=== PATIENT | female | born 1935 | race Caucasian/White ===

== ENCOUNTER 2020-01-14 14:30 | Outpatient (CLI) | payer MEDICARE, OTHER, SELFPAY ==
--- NOTE | 2020-01-14 14:48 | XR_ITS ---
WS: [id number] CHEST 2 VIEWS HISTORY: COUGH COMPARISON: 11/06/2017 Lungs: Mild progression of chronic appearing fibrotic changes. No pneumonia. No pulmonary vascular co ngestion. Cardiac size: Normal. Mediastinum/Aorta: Mild atherosclerosis aorta. Bones: Osteopenia. XR/XR chest 2V* [id number] IMPRESSION: Mild progression of pulmonary fibrosis. No pneumonia.
== END 2020-01-14 14:31 | disposition home or self-care (01) ==
LOC: RADWPI 14:38
PROVIDERS: Family Provider Family Medicine; PCP Family Medicine; Visit Provider Nurse Practitioner Family
DX: R05 Cough (principal); J84.10 Pulmonary fibrosis, unspecified
CPT/HCPCS: 71046

== ENCOUNTER 2020-11-10 20:06 | Inpatient (IN) | payer MEDICARE, OTHER, SELFPAY ==
[2020-11-10 20:12] VITALS: BP 155/67; PULSE 88; RESP 18; TEMP 37.2; O2SAT 97; BMI 25.7
--- NOTE | 2020-11-10 20:35 | W.ED.GENADLT ---
HPI - General Adult General: Chief complaint: General Medical Stated complaint: Dr Fernandez office sent her here Time Seen by Provider: 11/10/20 20:35 History of Present Illness: HPI narrative: Ms. Hooks is a previously healthy 85-year-old lady with minimal past medical history including hypertension and hyperlipidemia who presents to the emergency department due to abnormal lab. She did have COVID-19 approximately 18 days ago and had fairly typical associated symptoms however felt like she was recovering with exception of fairly profound fatigue. She has not had continued infectious symptoms in the past week or so. She describes generalized fatigue and loss of energy. She has symmetric generalized weakness. Overall the intensity of symptoms is moderate to severe. The course has persisted. She saw her physician today and had labs drawn which noted thrombocytopenia and anemia. She denies history of known similar. She denies abdominal pain or GI bleed. No dark tarry stools. No bruising. There are no known specific provoking, exacerbating, relieving factors. Review of Systems General: Reports: 10 or more systems reviewed and unremarkable except in HPI and below Narrative: CONSTITUTIONAL: denies fever, positive for fatigue, weakness EYES - denies pain, denies loss of vision EARS - denies ear issues. NOSE - denies congestion or rhinorrhea. THROAT - denies sore throat or difficulty swallowing. CARDIOVASCULAR - denies chest pain and palpitations RESPIRATORY - denies shortness of breath and cough GASTROINTESTINAL - denies abdominal pain, no nausea vomiting, no changes in bowel habits. No dark stools or melena GENITOURINARY - denies dysuria or urinary frequency. No hematuria. MUSCULOSKELETAL- denies deformity or pain SKIN - denies rashes or new changed skin lesions NEUROLOGIC - denies focal weakness or sensory changes HEMATOLOGIC/LYMPHATIC - denies easy bruising or lymphadenopathy. [facility] ED PFS: Medical History (Updated 11/12/20 @ 00:01 by ) COPD (chronic obstructive pulmonary disease) has not smoked since teenage years, < 2 packs years, 2nd hand exposure COVID-19 vaccine administered Moderna 3 para 3 Hyperlipidemia Hypertension Surgical History (Updated 11/11/20 @ 02:39 by Isa Armenta MD) H/O hemorrhoidectomy (~2014) Family History (Updated 11/11/20 @ 05:08 by Isa Armenta MD) Mother Heart attack Father Pulmonary fibrosis Sister Lung cancer Brother Lung cancer Son History of splenectomy Social History Smoking and tobacco status: former smoker Quit status (tobacco): has quit using tobacco Second hand smoke exposure: Yes Alcohol intake: never Substance/Drug Use: never Adopted: No Lives independently: No Household members: children Marital status: / Number of children: 4 Number of grandchildren: 7 Highest education level completed: High School Graduate service: No Current occupational status: retired Pets and animals: No History of recent travel: No Leisure activites: other Current gender identity: Female Quin/Anglican: Yazdanism Special quin needs: No Agree to transfusion: Yes Physical Exam Narrative: EXAM NARRATIVE: GENERAL/CONSTITUTIONAL - well-appearing. No acute distress. Eyes - PERRL, no conjunctival injection. Pallor present. ENMT - Atraumatic external nose and ears. Moist mucous membranes NECK - supple. trachea midline CARDIOVASCULAR - regular rate and rhythm. Peripheral pulses 2+ and equal RESPIRATORY -clear to auscultation bilaterally. No retractions or accessory muscle use. ABDOMEN/GI - Nontender/Nondistended. No tenderness to percussion or evidence of peritonitis MSK - Extremities without obvious deformity or tenderness to palpation SKIN - Warm, Dry, pale. NEURO - alert and appropriately oriented. strength and sensation intact. Moves all extremities equally. PSYCH - Appropriate mood and affect Course ED course: - Patient was seen and evaluated by me at bedside - Patient placed on cardiac monitors, IV access obtained - Initial evaluation notable for no acute distress, nontoxic appearance. Mild pallor of mucous membranes. - Labs notable for hemoglobin 6.1 -Guaiac negative. Waste Collection Driver present. -Risk and benefits of blood transfusion discussed with the patient. Patient consented for blood transfusion and transfusion ordered - Upon serial reexamination after treatment the patient was similar - Based on patient history, evaluation, labs, and imaging as interpreted the most likely cause of the patient's condition is unclear, though in the absence of known history this requires further evaluation. - The results of ED evaluation were discussed with the patient including plan for admission due to requirement for level of care not available if discharged to prevent significant worsening/deterioration. -Hospitalist service contacted and agreed to admit the patient. - Patient was admitted without further deterioration or significant events. Vital Signs: Vital signs: Vital Signs Temperature 98.4 F 11/11/20 13:20 Pulse Rate 76 11/11/20 13:20 Respiratory Rate 15 11/11/20 13:20 Blood Pressure 147/64 11/11/20 13:20 Pulse Oximetry 98 11/11/20 13:20 [facility] - General Adult Medical Records: Attestation: I reviewed the patient's medical records. Lab Data: Attestation: I reviewed the patient's lab results. Labs: Lab Results 11/10/20 11/10/20 11/10/20 Range/Units 20:45 20:45 20:45 WBC 4.0 (4.0-10.0) 10^3/ uL RBC 1.74 L (4.1-5.3) 10^6/u L Hgb 6.1 L* (11.5-15.3) g/dL Hct 19.5 L* (37.0-47.0) % MCV 112.1 H (81-99) fl MCH 35.1 H (28.0-34.0) pg MCHC 31.3 (30.0-36.0) g/dL RDW 17.3 H (12.1-15.1) % Plt Count 113 L (130-400) 10^3/c mm MPV 12.3 H (7.4-10.4) fL Neut % (Auto) 73.7 % Lymph % (Auto) 20.1 % Mathews % (Auto) 3.7 % Eos % (Auto) 1.0 % Baso % (Auto) 0.5 % Reticulocyte % (Au to) (0.5-2.0) % Neut # (Auto) 2.96 (1.8-7.7) 10^3/u L Lymph # (Auto) 0.8 (0.8-4.8) 10^3/u L Mathews # (Auto) 0.2 (0.2-0.9) 10^3/u L Eos # (Auto) 0.0 (0.0-0.8) 10^3/u L Baso # (Auto) 0.0 (0.0-0.1) 10^3/u L Nucleated RBC % (a uto) 0 % Nucleated RBCs # 0.0 /100WBC Haptoglobin (30-200) mg/L PT (12.1-14.9) SECO NDS INR (0.8-1.2) APTT (23.9-36.7) SECO NDS Fibrinogen (174-498) mg/dL D-Dimer (0-0.59) ug/mIFE U Sodium 135 L (136-145) mmol/L Potassium 3.9 (3.5-5.1) mmol/L Chloride 103 (98-107) mmol/L Carbon Dioxide 23 (22-29) mmol/L Anion Gap 12.9 (5-19) BUN 14 (8-23) mg/dL Creatinine 0.7 (0.5-0.9) mg/dL GFR Calculation Not Reportable Glucose 150 H (65-115) mg/dL Calculated Osmolal ity 283 L (285-295) mOsm/k g Calcium 8.5 (8.5-10.5) mg/dL Iron (37-145) ug/dL TIBC mcg/dl % Saturation (20-50) % Unsat Iron Binding (112-347) ug/dL Transferrin (200-360) mg/dL Ferritin (15-150) ng/mL Total Bilirubin 0.4 (0.15-1.2) mg/dL AST 15 (0-32) U/L ALT 10 (0-33) U/L Alkaline Phosphata se 113 H (35-105) IU/L Lactate Dehydrogen ase (135-214) U/L C-Reactive Protein (0.0-4.9) mg/L Total Protein 6.5 L (6.6-8.7) g/dL Albumin 3.7 (3.5-5.2) g/dL Globulin 2.8 (1.3-4.6) g/dL Vitamin B12 (232-1245) pg/mL Folate (4.8-37.3) ng/mL Procalcitonin (0-0.5) ng/mL TSH (0.27-4.20) uIU/ mL Blood Type A Positive Rho(D) Type Positive Antibody Screen Negative Crossmatch See Detail 11/10/20 11/10/20 11/10/20 Range/Units 20:45 20:45 20:45 WBC (4.0-10.0) 10^3/ uL RBC (4.1-5.3) 10^6/u L Hgb (11.5-15.3) g/dL Hct (37.0-47.0) % MCV (81-99) fl MCH (28.0-34.0) pg MCHC (30.0-36.0) g/dL RDW (12.1-15.1) % Plt Count (130-400) 10^3/c mm MPV (7.4-10.4) fL Neut % (Auto) % Lymph % (Auto) % Mathews % (Auto) % Eos % (Auto) % Baso % (Auto) % Reticulocyte % (Au to) 0.9 (0.5-2.0) % Neut # (Auto) (1.8-7.7) 10^3/u L Lymph # (Auto) (0.8-4.8) 10^3/u L Mathews # (Auto) (0.2-0.9) 10^3/u L Eos # (Auto) (0.0-0.8) 10^3/u L Baso # (Auto) (0.0-0.1) 10^3/u L Nucleated RBC % (a uto) % Nucleated RBCs # /100WBC Haptoglobin 127.0 (30-200) mg/L PT 12.50 (12.1-14.9) SECO NDS INR 0.91 (0.8-1.2) APTT 30.1 (23.9-36.7) SECO NDS Fibrinogen (174-498) mg/dL D-Dimer (0-0.59) ug/mIFE U Sodium (136-145) mmol/L Potassium (3.5-5.1) mmol/L Chloride (98-107) mmol/L Carbon Dioxide (22-29) mmol/L Anion Gap (5-19) BUN (8-23) mg/dL Creatinine (0.5-0.9) mg/dL GFR Calculation Glucose (65-115) mg/dL Calculated Osmolal ity (285-295) mOsm/k g Calcium (8.5-10.5) mg/dL Iron (37-145) ug/dL TIBC mcg/dl % Saturation (20-50) % Unsat Iron Binding (112-347) ug/dL Transferrin (200-360) mg/dL Ferritin (15-150) ng/mL Total Bilirubin (0.15-1.2) mg/dL AST (0-32) U/L ALT (0-33) U/L Alkaline Phosphata se (35-105) IU/L Lactate Dehydrogen ase 238 H (135-214) U/L C-Reactive Protein (0.0-4.9) mg/L Total Protein (6.6-8.7) g/dL Albumin (3.5-5.2) g/dL Globulin (1.3-4.6) g/dL Vitamin B12 (232-1245) pg/mL Folate (4.8-37.3) ng/mL Procalcitonin (0-0.5) ng/mL TSH (0.27-4.20) uIU/ mL Blood Type Rho(D) Type Antibody Screen Crossmatch 11/10/20 11/10/20 11/10/20 Range/Units 20:45 20:45 20:45 WBC (4.0-10.0) 10^3/ uL RBC (4.1-5.3) 10^6/u L Hgb (11.5-15.3) g/dL Hct (37.0-47.0) % MCV (81-99) fl MCH (28.0-34.0) pg MCHC (30.0-36.0) g/dL RDW (12.1-15.1) % Plt Count (130-400) 10^3/c mm MPV (7.4-10.4) fL Neut % (Auto) % Lymph % (Auto) % Mathews % (Auto) % Eos % (Auto) % Baso % (Auto) % Reticulocyte % (Au to) (0.5-2.0) % Neut # (Auto) (1.8-7.7) 10^3/u L Lymph # (Auto) (0.8-4.8) 10^3/u L Mathews # (Auto) (0.2-0.9) 10^3/u L Eos # (Auto) (0.0-0.8) 10^3/u L Baso # (Auto) (0.0-0.1) 10^3/u L Nucleated RBC % (a uto) % Nucleated RBCs # /100WBC Haptoglobin (30-200) mg/L PT (12.1-14.9) SECO NDS INR (0.8-1.2) APTT (23.9-36.7) SECO NDS Fibrinogen 415 (174-498) mg/dL D-Dimer 0.95 H (0-0.59) ug/mIFE U Sodium (136-145) mmol/L Potassium (3.5-5.1) mmol/L Chloride (98-107) mmol/L Carbon Dioxide (22-29) mmol/L Anion Gap (5-19) BUN (8-23) mg/dL Creatinine (0.5-0.9) mg/dL GFR Calculation Glucose (65-115) mg/dL Calculated Osmolal ity (285-295) mOsm/k g Calcium (8.5-10.5) mg/dL Iron 97 (37-145) ug/dL TIBC 177 mcg/dl % Saturation 54.8 H (20-50) % Unsat Iron Binding 80 L (112-347) ug/dL Transferrin 148 L (200-360) mg/dL Ferritin 431 H (15-150) ng/mL Total Bilirubin (0.15-1.2) mg/dL AST (0-32) U/L ALT (0-33) U/L Alkaline Phosphata se (35-105) IU/L Lactate Dehydrogen ase (135-214) U/L C-Reactive Protein (0.0-4.9) mg/L Total Protein (6.6-8.7) g/dL Albumin (3.5-5.2) g/dL Globulin (1.3-4.6) g/dL Vitamin B12 237 (232-1245) pg/mL Folate 10.7 (4.8-37.3) ng/mL Procalcitonin (0-0.5) ng/mL TSH (0.27-4.20) uIU/ mL Blood Type Rho(D) Type Antibody Screen Crossmatch 11/10/20 11/10/20 Range/Units 20:45 20:45 WBC (4.0-10.0) 10^3/ uL RBC (4.1-5.3) 10^6/u L Hgb (11.5-15.3) g/dL Hct (37.0-47.0) % MCV (81-99) fl MCH (28.0-34.0) pg MCHC (30.0-36.0) g/dL RDW (12.1-15.1) % Plt Count (130-400) 10^3/c mm MPV (7.4-10.4) fL Neut % (Auto) % Lymph % (Auto) % Mathews % (Auto) % Eos % (Auto) % Baso % (Auto) % Reticulocyte % (Au to) (0.5-2.0) % Neut # (Auto) (1.8-7.7) 10^3/u L Lymph # (Auto) (0.8-4.8) 10^3/u L Mathews # (Auto) (0.2-0.9) 10^3/u L Eos # (Auto) (0.0-0.8) 10^3/u L Baso # (Auto) (0.0-0.1) 10^3/u L Nucleated RBC % (a uto) % Nucleated RBCs # /100WBC Haptoglobin (30-200) mg/L PT (12.1-14.9) SECO NDS INR (0.8-1.2) APTT (23.9-36.7) SECO NDS Fibrinogen (174-498) mg/dL D-Dimer (0-0.59) ug/mIFE U Sodium (136-145) mmol/L Potassium (3.5-5.1) mmol/L Chloride (98-107) mmol/L Carbon Dioxide (22-29) mmol/L Anion Gap (5-19) BUN (8-23) mg/dL Creatinine (0.5-0.9) mg/dL GFR Calculation Glucose (65-115) mg/dL Calculated Osmolal ity (285-295) mOsm/k g Calcium (8.5-10.5) mg/dL Iron (37-145) ug/dL TIBC mcg/dl % Saturation (20-50) % Unsat Iron Binding (112-347) ug/dL Transferrin (200-360) mg/dL Ferritin (15-150) ng/mL Total Bilirubin (0.15-1.2) mg/dL AST (0-32) U/L ALT (0-33) U/L Alkaline Phosphata se (35-105) IU/L Lactate Dehydrogen ase (135-214) U/L C-Reactive Protein 4.6 (0.0-4.9) mg/L Total Protein (6.6-8.7) g/dL Albumin (3.5-5.2) g/dL Globulin (1.3-4.6) g/dL Vitamin B12 (232-1245) pg/mL Folate (4.8-37.3) ng/mL Procalcitonin 0.04 (0-0.5) ng/mL TSH 2.23 (0.27-4.20) uIU/ mL Blood Type Rho(D) Type Antibody Screen Crossmatch Discharge Plan Discharge Patient Disposition: Admitted As Inpatient Admit Provider: Isa Armenta Condition: Stable Discharge Diet: Usual diet Discharge Activity: Increase activity as tolerated Coding Level of Care Code ED 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
[2020-11-10 21:03] LABS: Basophils % 0.5 %; Lymphocytes # 0.8 10^3/uL (0.8-4.8); Lymphocytes % 20.1 %; Mean Corpuscular HGB Conc 31.3 g/dL (30.0-36.0); Mean Corpuscular Hemoglobin 35.1 pg (28.0-34.0); Mean Corpuscular Volume 112.1 fl (81-99); Mean Platelet Volume 12.3 fL (7.4-10.4); Monocytes # 0.2 10^3/uL (0.2-0.9); Monocytes % 3.7 %; Neutrophils # 2.96 10^3/uL (1.8-7.7); Neutrophils % 73.7 %; Nucleated Red Blood Cells % 0 %; Platelet Count 113 10^3/cmm (130-400); Red Blood Count 1.74 10^6/uL (4.1-5.3); Red Cell Distribution Width 17.3 % (12.1-15.1)
[2020-11-10 21:11] LABS: Hematocrit 19.5 % (37.0-47.0); Hemoglobin 6.1 g/dL (11.5-15.3)
[2020-11-10 21:17] VITALS: BP 138/63; PULSE 77; RESP 16; O2SAT 97
[2020-11-10 21:27] LABS: Alanine Aminotransferase 10 U/L (0-33); Albumin Level 3.7 g/dL (3.5-5.2); Alkaline Phosphatase 113 IU/L (35-105); Anion Gap 12.9 (5-19); Aspartate Amino Transferase 15 U/L (0-32); Blood Urea Nitrogen 14 mg/dL (8-23); Calcium 8.5 mg/dL (8.5-10.5); Carbon Dioxide 23 mmol/L (22-29); Chloride 103 mmol/L (98-107); Creatinine Clr Calc Pharmacy 50.4987; Globulin 2.8 g/dL (1.3-4.6); Glucose 150 mg/dL (65-115); Osmolality Calculated 283 mOsm/kg (285-295); Potassium 3.9 mmol/L (3.5-5.1); Sodium 135 mmol/L (136-145); Total Bilirubin 0.4 mg/dL (0.15-1.2); Total Protein 6.5 g/dL (6.6-8.7)
[2020-11-10 21:46] LABS: Reticulocyte % 0.9 % (0.5-2.0)
--- NOTE | 2020-11-10 21:47 | PC.NURSE ---
in room with Dr Lazar during rectal exam patient tolerated well
[2020-11-10 21:49] LABS: Lactate Dehydrogenase 238 U/L (135-214)
[2020-11-10 22:00] LABS: INR 0.91 (0.8-1.2)
[2020-11-10 22:01] LABS: Partial Thromboplastin Time 30.1 SECONDS (23.9-36.7)
[2020-11-10 22:32] LABS: Ferritin 431 ng/mL (15-150); Iron 97 ug/dL (37-145); Percent Saturation 54.8 % (20-50); Total Iron Binding Capacity 177 mcg/dl; Transferrin 148 mg/dL (200-360); Unsaturated Iron Binding 80 ug/dL (112-347)
[2020-11-10 22:47] LABS: Vitamin B12 237 pg/mL (232-1245)
[2020-11-10 22:48] LABS: Folate Level 10.7 ng/mL (4.8-37.3)
[2020-11-10 23:00] VITALS: BP 140/58; PULSE 74; RESP 16; O2SAT 98
[2020-11-10 23:03] LABS: Fibrinogen 415 mg/dL (174-498)
[2020-11-10 23:04] LABS: C Reactive Protein 4.6 mg/L (0.0-4.9)
[2020-11-10 23:11] LABS: Procalcitonin 0.04 ng/mL (0-0.5)
[2020-11-10 23:23] LABS: D Dimer 0.95 ug/mIFEU (0-0.59)
[2020-11-10 23:56] VITALS: PULSE 95; RESP 20; TEMP 36.8; O2SAT 96
[2020-11-11] VITALS (14 sets, daily range): BP systolic 113–147; BP diastolic 54–77; PULSE 71–81; RESP 14–18; TEMP 36.8–37.7; O2SAT 95–98; BMI 22.4
--- NOTE | 2020-11-11 00:16 | PC.NURSE ---
Pt arrived from ER. Complains of weakness but denies pain and is very pleasant. 1 unit of blood is being transfused.
[2020-11-11 00:36] LABS: LAB Peripheral Smear Sent for Review
--- NOTE | 2020-11-11 02:38 | P.HP_ITS ---
Providers/Chief Complaint Admitting Physician: Isa Armenta MD Primary Care Provider: Jack Fernandez MD Chief Complaint: Dr Fernandez office sent her here History of Present Illness Ria Hooks is a 85 year old female who presented to the emergency room after being called by her primary care provider to come in. She had been seen recently at Dr. Fernandez's office by Omaira Monzon and had lab work done. Omaira called reporting the low blood count. Patient is not sure what her last lab values had been but she was found in the ED to have a hemoglobin of 6. Reports that she probably had lab work done within the past 6 months to a year ago. She had issues with anemia in her younger years related to heavy menstrual cycles and had some anemia when she had problems with hemorrhoids a few years ago but denies any recent blood in her stools or black tarry stools. No nosebleeds. No large bruises or bleeding wounds. No hematemesis. She has been getting progressively more tired lately. The approximately 18 days ago ago she had a fever and a cough for a few days along with a sore throat. It went away without direct evaluation or intervention. She attributes the sore throat in particular to her having used an old inhaler to see if it would help her not be so tired. She has been told in the past that she might have some COPD. She smoked for couple of years in her teenage years but none since then. She has had secondhand smoke exposure. She did get fully vaccinated with Moderna earlier this year. While she did not at first admit to being short of breath, she has been having to rest. Denies any wheezing. Her MCV was quite high. Platelet count was also low at 113. She is chronically on atorvastatin and omeprazole. Denies any prior history of platelet problems. Denies being confused or having any difficulty walking beyond fatigue ability. Given the degree of anemia, thrombocytopenia and other abnormal labs she is being admitted for further e valuation and treatment as indicated. She has been typed and crossed for blood. Review of Systems Const: Reports: fatigue, malaise and daytime sleepiness; Denies: fever(s) (None currently, had a few weeks ago) or change in weight ENMT: Reports: other (No loss of taste or smell); Denies: throat pain (None currently though had a few weeks ago), nasal congestion (None currently though had a few weeks ago) or epistaxis Card: Reports: dyspnea on exertion; Denies: chest pain, palpitations or edema Resp: Denies: dyspnea, productive cough (None currently, had a few weeks ago), non-productive cough or wheezing GI: Denies: abdominal pain, nausea, vomiting, diarrhea, constipation, hematochezia or melena : Denies: flank pain, difficulty voiding or hematuria Musc: Denies: extremity swelling, joint pain, joint swelling or joint redness Skin/Breast: Denies: rash, pruritus or sores Neuro: Denies: headache(s), numbness in extremities, weakness in extremities, difficulty walking, confusion, behavioral changes or difficulty communicating thoughts Psych: Denies: anxiety or depression Edin/Lymph: Denies: easy bruising or easy bleeding Medications/Allergies Home Medications Medication Instructions Recorded Confirmed Last Taken Type albuterol sulfate [ProAir HFA] 2 puff INHALATION QID PRN 11/10/20 11/10/20 Unknown History amlodipine 10 mg PO DAILY 11/10/20 11/10/20 11/10/20 History atorvastatin 20 mg PO DAILY 11/10/20 11/10/20 11/10/20 History nebivolol [Bystolic] 10 mg PO DAILY 11/10/20 11/10/20 11/10/20 History omeprazole 20 mg PO DAILY 11/10/20 11/10/20 11/10/20 History valsartan 40 mg PO DAILY 11/10/20 11/10/20 Unknown History Allergies Allergy/AdvReac Type Severity Reaction Status Date / Time nitrofurantoin Allergy Unknown Verified 11/10/20 21:03 [From Macrobid] PFSH Acute PFSH: Medical History (Updated 11/11/20 @ 05:17 by Isa Armenta MD) COPD (chronic obstructive pulmonary disease) has not smoked since teenage years, < 2 packs years, 2nd hand exposure COVID-19 vaccine administered Moderna 3 para 3 Hyperlipidemia Hypertension Surgical History (Updated 11/11/20 @ 02:39 by Isa Armenta MD) H/O hemorrhoidectomy (~2014) Family History (Updated 11/11/20 @ 05:08 by Isa Armenta MD) Mother Heart attack Father Pulmonary fibrosis Sister Lung cancer Brother Lung cancer Son History of splenectomy Social History Smoking and tobacco status: former smoker Quit status (tobacco): has quit using tobacco Second hand smoke exposure: Yes Alcohol intake: never Substance/Drug Use: never Adopted: No Lives independently: No Household members: children Marital status: / Number of children: 4 Number of grandchildren: 7 Highest education level completed: High School Graduate service: No Current occupational status: retired Pets and animals: No History of recent travel: No Leisure activites: other Current gender identity: Female Quin/Nondenominational: Temple Special quin needs: No Agree to transfusion: Yes Vitals/I&O/Wt Last Vital Signs Temp 99 F 11/11/20 01:26 Pulse 71 11/11/20 01:26 Resp 16 11/11/20 01:26 BP 137/63 11/11/20 01:26 Pulse Ox 96 11/11/20 01:26 11/10/20 11/10/20 11/11/20 14:59 22:59 06:59 Intake Total 350 / 350 Balance 350 / 350 Weight last 48 hrs Weight 59.421 kg Weight 68.039 kg Physical Exam Narrative: EXAM NARRATIVE: Constitutional: Awake and alert, pale, cooperative HEENT: Normocephalic, pale conjunctiva, arcus senilis, nasopharynx is clear, pale mucous membranes, Neck: Supple Respiratory: Clear to auscultation bilaterally Cardiovascular: Regular rhythm Abdomen: Soft, nontender, positive bowel sounds Extremities: No pitting edema Skin: Some varicose veins distally, no bruising, skin is pale Neuro: Speech clear, face symmetric, able to provide history without hesitation, moves all extremities Psych: Normal affect and interaction Data : 11/10/20 20:45 11/10/20 20:45 Other Labs: Laboratory Tests 11/10/20 11/10/20 11/10/20 20:45 20:45 20:45 MCV 112.1 H Haptoglobin 127.0 INR 0.91 APTT 30.1 Total Bilirubin 0.4 AST 15 ALT 10 Alkaline Phosphatase 113 H C-Reactive Protein 4.6 Total Protein 6.5 L Albumin 3.7 Procalcitonin 0.04 A&P Assessment and plan (1) Severe anemia: I suspect that this has been somewhat of a slow drop in her counts although she is been more acutely fatigued over the last week or 2. Given elevated MCV and lack of obvious history to support otherwise common causes of MCV elevation myelodysplastic process is probably highest in my differential currently. She does describe a viral illness a few weeks ago. She was not test ed for Covid at the time. Post viral bone marrow suppression is also within the differential. There is no evidence reported of any gross bleeding. She has associated thrombocytopenia but no fevers within the last week or 2 and no alteration in mental status. Need a little bit more information before able to narrow differential a bit further. Status: Acute (2) Thrombocytopenia: Status: Acute (3) Macrocytosis: Status: Acute (4) Hypertension: Chronically on amlodipine, Bystolic, valsartan Status: Chronic (5) Hyperlipidemia: Chronically on statin therapy Status: Chronic Additional A&P Information Hyperglycemia without known diabetes Probable viral illness about 3 weeks ago Chronically on PPI Inpatient admission Peripheral smear review Check serum protein electrophoresis Check coagulation studies, iron, transferrin, TIBC, B12, folate Check reticulocyte count, haptoglobin Has been typed and crossed for 2 units and transfusion ordered Hemoccult of stool (ED checked Hemoccult and was negative by report) Request labs from Dr. Fernandez's office Continue home amlodipine, Bystolic, valsartan Currently holding atorvastatin and omeprazole secondary to thrombocytopenia Recheck blood sugar SCDs for DVT prophylaxis Supportive care otherwise Findings, concerns and plans were discussed with patient and she was given an opportunity to ask questions. ED provider had already discussed blood transfusion with her and consent was signed. Explained to her that work-up will likely not be complete in the time that she is discharged but we want to ensure that her counts have stabilized after transfusion and will be performing a bit of additional blood work to help sort out what is going on. Attestations Medical Necessity Statement*: Anticipated stay greater than 2 midnights and patient with severe anemia, symptomatic requiring transfusion. She has not had prior transfusion. She also reports what sounds like viral illness a few weeks ago. Need to monitor for further declining counts. Coding Level of Care Code Acute S[employer] Grinder for g Fwd Diagnoses Severe anemia D64.9 Thrombocytopenia D69.6 Macrocytosis D75.89 Hypertension I10 Hyperlipidemia E78.5
[2020-11-11 03:42] LABS: Thyroid Stimulating Hormone 2.23 uIU/mL (0.27-4.20)
[2020-11-11] MEDS: sodium chloride 0.9% (100 ml) 100 ML (03:50)
--- NOTE | 2020-11-11 05:50 | PC.NURSE ---
H/H ORDER Pt with order for H?H 2 hours after transfusion. Talked with lab and are going to do the scheduled CBC at 0800. Second unit of PRBC's just finished. Tolerated transfusion well.00
[2020-11-11 07:48] LABS: Basophils % 0.7 %; Eosinophils % 1.3 %; Hematocrit 25.9 % (37.0-47.0); Hemoglobin 8.5 g/dL (11.5-15.3); Lymphocytes # 0.8 10^3/uL (0.8-4.8); Lymphocytes % 27.9 %; Mean Corpuscular HGB Conc 32.8 g/dL (30.0-36.0); Mean Corpuscular Hemoglobin 33.3 pg (28.0-34.0); Mean Corpuscular Volume 101.6 fl (81-99); Mean Platelet Volume 12.4 fL (7.4-10.4); Monocytes # 0.1 10^3/uL (0.2-0.9); Monocytes % 4.7 %; Neutrophils # 1.92 10^3/uL (1.8-7.7); Neutrophils % 64.7 %; Nucleated Red Blood Cells % 0 %; Platelet Count 95 10^3/cmm (130-400); Red Blood Count 2.55 10^6/uL (4.1-5.3); Red Cell Distribution Width 19.3 % (12.1-15.1)
--- NOTE | 2020-11-11 07:49 | PC.NURSE ---
Discussed with patient the physician has requested a stool sample. Patient is unsure if she will be able to have a bowel movement, possibly ever while she is here. Discussed with patient that is ok if she does not, but if she does have a bowel movement, we would like to send a specimen to lab. Patient acknowledged understanding.
[2020-11-11] MEDS: losartan 50 mg Tablet 12.5 MG PO (08:56)
[2020-11-11] MEDS: amlodipine 10 mg Tablet PO (09:00)
--- NOTE | 2020-11-11 09:06 | PC.CHAP ---
Pastoral Care Encounter/Spiritual Assessment Type of Contact [] Declined snow ranger visit [] Patient/Family/Request visit [] Outpatient visit [] Follow-up visit [] Physician referral [] Code/Alert [x] Routine visit [] Staff referral [] Actively dying [] Patient sleeping [] Family support [] [] Out of room [] Palliative care [] [] Receiving care in room [] Pre-surgical visit [] Trauma [] Long length of stay [] ICU visit [] Other: Relational/Emotional Strength [x] Patient feels connected with others/family/visitors/staff [] Distress [] Loneliness/isolation [] Abandonment Spirituality of Patient [x] Person of Quin [x] Attends Latter-Day of their [place] [x] Believes in Prayer [x] Reads Bible or Moravian materials [] There are Spiritual issues to be addressed Record Press Tender Interventions [x] Prayer [x] Active listening [x] Non-anxious presence [x] Spiritual/emotional support [] Crisis/trauma care [] Spiritual counseling [] Bereavement support [] Provided bereavement packet [] Provided Bible/devotional materials [] Provided toy/stuffed animal, coloring book to patient or family member [] Provided Communion [] Anointing/[place] [] Salvation [x] Completed spiritual assessment [] Other: Impact on Illness or Injury [] Angry [] Fearful [x] Anxious [] Often cries [x] Exhaustion [] Unable to work [] Unable to attend jainism [] Unable to walk/stand [] Unable to read [] Unable to drive [] Unable to eat/drink [] Unable to sleep [] Unable to be with family [] Patient intubated [] Other: Summary Someonewhat still is shock and frustrated over her stay at the hospital. She went to the doctor yesterday for being tired but never expected to find herself in the hospital. Found out her bones are not producing blood. Uncertain what all this means other than she is facing many more tests in the days ahead. She left in a hurry yesterday so so failed to get her phone but her son knows she is here and will bring it with him when he gets off work today. Time spent with patient 10m
--- NOTE | 2020-11-11 13:28 | P.DS_ITS ---
Discharge Providers Date of Admission: 11/10/20 22:57 Date of Discharge: November 11, 2020 Attending Provider at Admission: Isa Armenta MD Attending Provider at Discharge: Samuel Harry Primary Care Provider: Jack Fernandez MD Diagnoses at Discharge Discharge Diagnosis (1) Severe anemia: Status: Acute (2) Thrombocytopenia: Status: Acute (3) Macrocytosis: Status: Acute (4) Hypertension: Status: Chronic (5) Hyperlipidemia: Status: Chronic Reason for Visit Reason for Visit: Dr Fernandez office sent her here Hospital Course Hospital Course 85 year old female who presented to the emergency room after being called by her primary care provider to come in. She had been seen recently at Dr. Fernandez's office by Omaira Monzon and had lab work done. Omaira called reporting the low blood count. Patient is not sure what her last lab values had been but she was found in the ED to have a hemoglobin of 6. Reports that she probably had lab work done within the past 6 months to a year ago. She had issues with anemia in her younger years related to heavy menstrual cycles and had some anemia when she had problems with hemorrhoids a few years ago but denies any recent blood in her stools or black tarry stools. No nosebleeds. No large bruises or bleeding wounds. No hematemesis. She has been getting progressively more tired lately. The approximately 18 days ago ago she had a fever and a cough for a few days along with a sore throat. It went away without direct evaluation or inter vention. She attributes the sore throat in particular to her having used an old inhaler to see if it would help her not be so tired. She has been told in the past that she might have some COPD. She smoked for couple of years in her teenage years but none since then. She has had secondhand smoke exposure. She did get fully vaccinated with Moderna earlier this year. While she did not at first admit to being short of breath, she has been having to rest. Denies any wheezing. Her MCV was quite high. Platelet count was also low at 113. She is chronically on atorvastatin and omeprazole. Denies any prior history of platelet problems. Denies being confused or having any difficulty walking beyond fatigue ability. Given the degree of anemia, thrombocytopenia and other abnormal labs she is being admitted for further evaluation and treatment as indicated. She has been typed and crossed for blood. Patient was initiated on transfusion. Repeat hemoglobin had increased to 8.5. Patient did not have any episodes of bleeding. Repeat labs had additional also shown a WBC of 3.0, MCV of 101.6 and platelet count 95. INR 0.91. Iron studies showed iron level of 97, TIBC of 177, % saturation of 54.8, transferrin of 148 and ferritin of 431 LFTs were within normal limits. LDH of 238. CRP of 4.6. Vitamin B12 and folate were normal. TSH of 2.23. Urine and serum protein electrophoresis were ordered however pending. Case was discussed with Oncology. Laboratory findings are highly suspicious for myelodysplastic syndrome. Patient was not having any further symptoms. At this time she was discharged and advised to follow-up with oncology as scheduled. Physical Exam Narrative: EXAM NARRATIVE: Constitutional: Awake and alert, cooperative HEENT: Normocephalic, pale conjunctiva, arcus senilis, nasopharynx is clear, pale mucous membranes, Neck: Supple Respiratory: Clear to auscultation bilaterally Cardiovascular: Regular rhythm Abdomen: Soft, nontender, positive bowel sounds Extremities: No pitting edema Skin: Some varicose veins distally, no bruising, skin is pale Neuro: Speech clear, face symmetric, able to provide history without hesitation, moves all extremities Psych: Normal affect and interaction Discharge Data Data Completed and Pending: Pending at discharge Category Date Time Status Basic Metabolic P lily AM LABS Lab 11/12/20 04:00 Ordered Complete Blood Co unt w/Auto AM LABS Lab 11/12/20 04:00 Ordered Immunochemical Fe asher OCB Routine Lab 11/11/20 02:46 Uncollected Magnesium AM LABS Lab 11/12/20 04:00 Ordered Phosphorus AM LAB S Lab 11/12/20 04:00 Ordered Total Protein Anali ctrophoresis AM LA BS Lab 11/11/20 04:00 Received Urine Protein Anali ctrop Random Routi ne Lab 11/11/20 02:50 Received Labs from last 24 hours 11/11/20 11/10/20 11/10/20 07:32 22:15 20:45 WBC 3.0 L RBC 2.55 L Hgb 8.5 L D Hct 25.9 L D MCV 101.6 H D MCH 33.3 MCHC 32.8 RDW 19.3 H Plt Count 95 L MPV 12.4 H Neut % (Auto) 64.7 Lymph % (Auto) 27.9 Ector % (Auto) 4.7 Eos % (Auto) 1.3 Baso % (Auto) 0.7 Reticulocyte % (Au to) Neut # (Auto) 1.92 Lymph # (Auto) 0.8 Ector # (Auto) 0.1 L Eos # (Auto) 0.0 Baso # (Auto) 0.0 Nucleated RBC % (a uto) 0 Nucleated RBCs # 0.0 Haptoglobin PT INR APTT Fibrinogen D-Dimer Sodium Potassium Chloride Carbon Dioxide Anion Gap BUN Creatinine GFR Calculation Glucose Calculated Osmolal ity Calcium Iron TIBC % Saturation Unsat Iron Binding Transferrin Ferritin Total Bilirubin AST ALT Alkaline Phosphata se Lactate Dehydrogen ase C-Reactive Protein Total Protein Albumin Globulin Qyxgu-8-Kderzfdvp Ujrmg-6-Szumzoddi Yulo-1-Rqmxjwno Ekou-4-Cpnqqaxk Gamma Globulins Abnorm Protein Ban d 1 Vitamin B12 Folate Procalcitonin TSH 2.23 Ur Random Creatini ne Pending Ur Random Albumin Pending U Random Total Pro tein Pending Protein/Creatinin Ratio Pending Protein/Creat Rati o 24h Pending U Random a-1-Globu vandana % Pending U Random a-2-Globu vandana % Pending U Random Beta Glob ulin Pending U Random Gamma Princess b Pending U Abnormal Prot Ba nd 1 Pending U Abnormal Prot Ba nd 2 Pending U Abnormal Prot Ba nd 3 Pending Urine PEP Interpre t Pending Pro Electrophoresi s Int Blood Type Rho(D) Type Antibody Screen Crossmatch 11/10/20 11/10/20 11/10/20 20:45 20:45 20:45 WBC RBC Hgb Hct MCV MCH MCHC RDW Plt Count MPV Neut % (Auto) Lymph % (Auto) Ector % (Auto) Eos % (Auto) Baso % (Auto) Reticulocyte % (Au to) Neut # (Auto) Lymph # (Auto) Ector # (Auto) Eos # (Auto) Baso # (Auto) Nucleated RBC % (a uto) Nucleated RBCs # Haptoglobin PT INR APTT Fibrinogen 415 D-Dimer 0.95 H Sodium Potassium Chloride Carbon Dioxide Anion Gap BUN Creatinine GFR Calculation Glucose Calculated Osmolal ity Calcium Iron TIBC % Saturation Unsat Iron Binding Transferrin Ferritin Total Bilirubin AST ALT Alkaline Phosphata se Lactate Dehydrogen ase C-Reactive Protein 4.6 Total Protein Pending Albumin Pending Globulin Hvtmi-6-Qyxcmtbju Pending Gozyg-9-Gurrnosow Pending Itsr-6-Xmpuquts Pending Nsgt-8-Xzedqcrp Pending Gamma Globulins Pending Abnorm Protein Ban d 1 Pending Vitamin B12 Folate Procalcitonin 0.04 TSH Ur Random Creatini ne Ur Random Albumin U Random Total Pro tein Protein/Creatinin Ratio Protein/Creat Rati o 24h U Random a-1-Globu vandana % U Random a-2-Globu vandana % U Random Beta Glob ulin U Random Gamma Princess b U Abnormal Prot Ba nd 1 U Abnormal Prot Ba nd 2 Pending U Abnormal Prot Ba nd 3 Pending Urine PEP Interpre t Pro Electrophoresi s Int Pending Blood Type Rho(D) Type Antibody Screen Crossmatch 11/10/20 11/10/20 11/10/20 20:45 20:45 20:45 WBC RBC Hgb Hct MCV MCH MCHC RDW Plt Count MPV Neut % (Auto) Lymph % (Auto) Ector % (Auto) Eos % (Auto) Baso % (Auto) Reticulocyte % (Au to) Neut # (Auto) Lymph # (Auto) Ector # (Auto) Eos # (Auto) Baso # (Auto) Nucleated RBC % (a uto) Nucleated RBCs # Haptoglobin 127.0 PT INR APTT Fibrinogen D-Dimer Sodium Potassium Chloride Carbon Dioxide Anion Gap BUN Creatinine GFR Calculation Glucose Calculated Osmolal ity Calcium Iron 97 TIBC 177 % Saturation 54.8 H Unsat Iron Binding 80 L Transferrin 148 L Ferritin 431 H Total Bilirubin AST ALT Alkaline Phosphata se Lactate Dehydrogen ase 238 H C-Reactive Protein Total Protein Albumin Globulin Keqhx-5-Piwsmznod Nbgjd-6-Gcqiyvkkm Obom-0-Vxawenwt Loem-8-Ajhtfisq Gamma Globulins Abnorm Protein Ban d 1 Vitamin B12 237 Folate 10.7 Procalcitonin TSH Ur Random Creatini ne Ur Random Albumin U Random Total Pro tein Protein/Creatinin Ratio Protein/Creat Rati o 24h U Random a-1-Globu vandana % U Random a-2-Globu vandana % U Random Beta Glob ulin U Random Gamma Princess b U Abnormal Prot Ba nd 1 U Abnormal Prot Ba nd 2 U Abnormal Prot Ba nd 3 Urine PEP Interpre t Pro Electrophoresi s Int Blood Type Rho(D) Type Antibody Screen Crossmatch 08/17/21 08/17/21 08/17/21 20:45 20:45 20:45 WBC RBC Hgb Hct MCV MCH MCHC RDW Plt Count MPV Neut % (Auto) Lymph % (Auto) Ector % (Auto) Eos % (Auto) Baso % (Auto) Reticulocyte % (Au to) 0.9 Neut # (Auto) Lymph # (Auto) Ector # (Auto) Eos # (Auto) Baso # (Auto) Nucleated RBC % (a uto) Nucleated RBCs # Haptoglobin PT 12.50 INR 0.91 APTT 30.1 Fibrinogen D-Dimer Sodium Potassium Chloride Carbon Dioxide Anion Gap BUN Creatinine GFR Calculation Glucose Calculated Osmolal ity Calcium Iron TIBC % Saturation Unsat Iron Binding Transferrin Ferritin Total Bilirubin AST ALT Alkaline Phosphata se Lactate Dehydrogen ase C-Reactive Protein Total Protein Albumin Globulin Ogzbd-0-Ktujxxfte Lippu-4-Otewwjdfz Youy-2-Lseeofpf Gnje-5-Xnlmiqsy Gamma Globulins Abnorm Protein Ban d 1 Vitamin B12 Folate Procalcitonin TSH Ur Random Creatini ne Ur Random Albumin U Random Total Pro tein Protein/Creatinin Ratio Protein/Creat Rati o 24h U Random a-1-Globu vandana % U Random a-2-Globu vandana % U Random Beta Glob ulin U Random Gamma Princess b U Abnormal Prot Ba nd 1 U Abnormal Prot Ba nd 2 U Abnormal Prot Ba nd 3 Urine PEP Interpre t Pro Electrophoresi s Int Blood Type A Positive Rho(D) Type Positive Antibody Screen Negative Crossmatch See Detail 11/10/20 11/10/20 20:45 20:45 WBC 4.0 RBC 1.74 L Hgb 6.1 L* Hct 19.5 L* MCV 112.1 H MCH 35.1 H MCHC 31.3 RDW 17.3 H Plt Count 113 L MPV 12.3 H Neut % (Auto) 73.7 Lymph % (Auto) 20.1 Ector % (Auto) 3.7 Eos % (Auto) 1.0 Baso % (Auto) 0.5 Reticulocyte % (Au to) Neut # (Auto) 2.96 Lymph # (Auto) 0.8 Ector # (Auto) 0.2 Eos # (Auto) 0.0 Baso # (Auto) 0.0 Nucleated RBC % (a uto) 0 Nucleated RBCs # 0.0 Haptoglobin PT INR APTT Fibrinogen D-Dimer Sodium 135 L Potassium 3.9 Chloride 103 Carbon Dioxide 23 Anion Gap 12.9 BUN 14 Creatinine 0.7 GFR Calculation Not Reportable Glucose 150 H Calculated Osmolal ity 283 L Calcium 8.5 Iron TIBC % Saturation Unsat Iron Binding Transferrin Ferritin Total Bilirubin 0.4 AST 15 ALT 10 Alkaline Phosphata se 113 H Lactate Dehydrogen ase C-Reactive Protein Total Protein 6.5 L Albumin 3.7 Globulin 2.8 Vjcck-7-Camhcfcxm Itflj-8-Jchtuqdaf Rqvr-9-Grctebgd Qhet-1-Oqdokinr Gamma Globulins Abnorm Protein Ban d 1 Vitamin B12 Folate Procalcitonin TSH Ur Random Creatini ne Ur Random Albumin U Random Total Pro tein Protein/Creatinin Ratio Protein/Creat Rati o 24h U Random a-1-Globu vandana % U Random a-2-Globu vandana % U Random Beta Glob ulin U Random Gamma Princess b U Abnormal Prot Ba nd 1 U Abnormal Prot Ba nd 2 U Abnormal Prot Ba nd 3 Urine PEP Interpre t Pro Electrophoresi s Int Blood Type Rho(D) Type Antibody Screen Crossmatch Vitals: Last Vital Signs Temp 98.4 F 11/11/20 13:20 Pulse 76 11/11/20 13:20 Resp 15 11/11/20 13:20 BP 147/64 11/11/20 13:20 Pulse Ox 98 11/11/20 13:20 Discharge Plan Discharge Patient Disposition: Home Condition: Stable Prescriptions: Continued atorvastatin 20 mg tablet 20 mg PO DAILY RF: 0 amlodipine 10 mg tablet 10 mg PO DAILY RF: 0 omeprazole 20 mg capsule,delayed release(DR/EC) 20 mg PO DAILY RF: 0 ProAir HFA 90 mcg/actuation Hfa Aerosol Inhaler 2 puff INHALATION QID PRN (Reason: Shortness Of Breath) RF: 0 valsartan 40 mg tablet 40 mg PO DAILY RF: 0 Bystolic 10 mg tablet 10 mg PO DAILY RF: 0 Discharge Orders: Discharge Order (Routine); Ordered 11/11/20 Ordered By: Samuel Harry Referrals: Alejandro Dorantes MD [Hospitalist] - 1 week (Dr. Dorantes office to call and arrange appointment) Jack Fernandez MD [Primary Care Provider] - 11/18/20 1:00 pm Discharge Diet: Usual diet Discharge Activity: Increase activity as tolerated Patient Instructions: Blood Transfusion (GEN), Thrombocytopenia (GEN), Opioid Safety Activity Restrictions/Additional Instructions: Return to hospital if any recurrance of presenting symptoms. Discharge Attestations Time Spent in Discharge Care*: greater than 30 min Specific Discharge Activities: educating patient, discussing with pcp/other providers (Discussed with Dr. Dorantes), discussing with mental health case manager/social workers/dc planners, documenting/other paperwork and evaluating patient/reviewing data Status at Discharge: Cognitive status at discharge: cognitively intact , Behavioral status at discharge: cooperative , Functional status at discharge: independent ambulation Overall status at discharge: patient is back to baseline Quality Metrics Clinical Quality Measures During this hospital stay, did patient experience: None Coding Level of Care Code Acute Chg FW DC note Diagnoses Severe anemia D64.9 Thrombocytopenia D69.6 Macrocytosis D75.89 Hypertension I10 Hyperlipidemia E78.5
[2020-11-12 15:32] LABS: Creatinine, Random Urine 28 mg/dL (20-275); Protein, Total, Random 15 mg/dL (5-24); Protein/Creatinine Ratio 0.536 (0.021-0.161); Protein/Creatinine Ratio 536 mg/g creat (21-161)
[2020-11-13 03:32] LABS: PROTEIN, TOTAL 6.8 g/dL (6.1-8.1)
[2020-11-13 12:08] LABS: Albumin,Urine Random 100 %; Alpha-1-Globulins Urine Random 0 %; Alpha-2-Globulins Urine Random 0 %; Beta-Globulin,Urine Random 0 %; Gamma Globulin,Urine Random 0 %
[2020-11-13 15:02] LABS: ALBUMIN 3.4 g/dL (3.8-4.8); ALPHA 1 GLOBULIN 0.4 g/dL (0.2-0.3); ALPHA 2 GLOBULIN 0.8 g/dL (0.5-0.9); BETA 1 GLOBULIN 0.4 g/dL (0.4-0.6); BETA 2 GLOBULIN 0.4 g/dL (0.2-0.5); GAMMA GLOBULIN 1.4 g/dL (0.8-1.7)
--- NOTE | 2020-11-17 10:21 | PC.SOCIAL ---
hospital discharge call made, patient had follow up appointment yesterday with Dr. Dorantes and then has appointment with Dr. Fernandez on 11/18.
== END 2020-11-11 13:40 | disposition home or self-care (01) | DRG 812 ==
LOC: ER 20:53 → MEDSURG 22:58
PROVIDERS: Emergency Medicine; Admitting Provider Hospitalist; Emergency Provider Emergency Medicine; PCP Family Medicine; Visit Provider Hospitalist
DX: D64.9 Anemia, unspecified (principal); D69.6 Thrombocytopenia, unspecified; D75.89 Other specified diseases of blood and blood-forming organs; I10 Essential (primary) hypertension; E78.5 Hyperlipidemia, unspecified; J44.9 Chronic obstructive pulmonary disease, unspecified; Z77.22 Contact with and (suspected) exposure to environmental tobacco smoke (acute) (chronic); Z80.1 Family history of malignant neoplasm of trachea, bronchus and lung; Z84.89 Family history of other specified conditions; Z87.891 Personal history of nicotine dependence; Z98.890 Other specified postprocedural states
CPT/HCPCS: 36415; 36430; 80053; 80500; 82607; 82728; 82746; 83010; 83540; 83550; 83615; 84145; 84155; 84165; 84443; 84466; 85025; 85045; 85378; 85384; 85610; 85730; 86140; 86850; 86900; 86920; 99285; P9016

== ENCOUNTER 2020-11-16 08:29 | Outpatient (CLI) | payer MEDICARE, OTHER, SELFPAY ==
--- NOTE | 2020-11-13 16:16 | PC.RESP ---
PULMONARY REHAB INFORMATION SENT TO PATIENT.
[2020-11-16 10:59] LABS: Basophils % 0.3 %; Eosinophils % 1.1 %; Hematocrit 28.8 % (37.0-47.0); Hemoglobin 9.1 g/dL (11.5-15.3); Lymphocytes # 0.7 10^3/uL (0.8-4.8); Lymphocytes % 18.2 %; Mean Corpuscular HGB Conc 31.6 g/dL (30.0-36.0); Mean Corpuscular Hemoglobin 33.6 pg (28.0-34.0); Mean Corpuscular Volume 106.3 fl (81-99); Mean Platelet Volume 12.6 fL (7.4-10.4); Monocytes # 0.2 10^3/uL (0.2-0.9); Monocytes % 5.4 %; Neutrophils # 2.75 10^3/uL (1.8-7.7); Neutrophils % 74.7 %; Nucleated Red Blood Cells % 0 %; Platelet Count 98 10^3/cmm (130-400); Red Blood Count 2.71 10^6/uL (4.1-5.3); Red Cell Distribution Width 17.2 % (12.1-15.1); Reticulocyte % 0.7 % (0.5-2.0); White Blood Count 3.7 10^3/uL (4.0-10.0)
--- NOTE | 2020-11-16 11:28 | ONC CON_ITS ---
Dr. Dorantes New Patient Note Patient: Ria Hooks Unit #: [id number]: [id number] Dicatated By: Alejandro Dorantes M.D.Date of Visit: Nov 16, 2020 Onc MED New Patient/Consult Referring Physician: [facility]ITAL[facility] Chief Complaint: Anemia. History of Present Illness: This is an 85-year-old woman with macrocytic anemia. She also has a borderline low white blood cell count and mild thrombocytopenia. She has been in good general health. Somewhere in the range of 3 to 4 weeks ago she developed acute illness with fever, cough, sore throat, and sinusitis symptoms. She also was having some fatigue with that illness. She had then been seen in the office by Omaira Monzon on 11/10/2020. Her main complaint at that time was numbness in her lower legs and feet, which appeared to be due to peripheral neuropathy. At that point she was feeling exhausted. She was found to be severely anemic with her hemoglobin low at 6 g. On further evaluation in the emergency room, her CBC showed hemoglobin 6.1 g with hematocrit 19.5%. The red cell indices were macrocytic with MCV 112.1 and MCH 35.1. The white blood cell count was 4000 with the differential showing 73% neutrophils, 20% lymphocytes, 3% monocytes, and 1% eosinophils. The platelet count was mildly decreased at 113,000. Comprehensive metabolic profile was unremarkable. LDH was slightly elevated at 238/214 U/L. Her serum iron studies showed elevated transferrin saturation at 54.8% and the ferritin also was elevated at 431 ng/mL. B12 was borderline low at 237 pg/mL with folate normal at 10.7 ng/mL. TSH was normal 2.23 ???IU/mL. She was admitted to the hospital and she was transfused 2 units PRBC. She was able to be discharged home the following day. Since discharge from the hospital, she has continued to have limited activity. She says she has no energy. Her ECOG score is 2. Her appetite also has not been too good. During the past several months she has had weight loss in the range of 25 to 30 pounds. She has not had any more fever, and she has had no night sweating. She has just occasional sinus drainage. Her throat now feels better, and her cough is completely resolved. She does not complain of shortness of breath or chest pain. She has not been having nausea. Her acid reflux is adequately managed with medication. She has no complaints with bowel or bladder function, and she has not been aware of any blood in the stool. She has no significant joint or bone pain. She does not complain of headache or dizziness. She is having some numbness in her lower legs and feet, and she also has slight numbness in her fingertips. She has not been aware of any abnormal bruising or bleeding. Past Medical History: Her medical history includes chronic obstructive pulmonary disease, degenerative arthritis, gastroesophageal reflux disease, hyperlipidemia, and hypertension. Past Surgical History: Her surgical/procedural history includes hemorrhoidectomy and total knee arthroplasty bilaterally. Medications: amLODIPine Besylate 1 Tablet (of 10 mg) Oral daily, Atorvastatin Calcium 1 Tablet (of 20 mg) Oral daily, Bystolic 1 Tablet (of 10 mg) Oral daily, PriLOSEC 1 Capsule (of 20 mg) Capsule Delayed Release Oral daily, ProAir HFA 2 Puff(s) (of 108 (90 base) mcg/act) Aerosol, solution Inhalation four times a day PRN, Valsartan 1 Tablet (of 40 mg) Oral daily Allergies: Nitrofurantoin Macrocrystal Social History: Ms. Hooks is . She has a history of smoking up to a pack of cigarettes daily for 10 years, beginning at age 20. She does not drink alcohol. Family History: Father of stroke at age 87. Mother of heart disease at age 67. A brother with melanoma at age 87. He also had prostate cancer. A sister of lung cancer at age 72. Review Of Symptoms: Constitutional - She complains that she has no energy. Her activity is limited. Her appetite is not too good. She has had a weight loss in the range of 25 to 30 pounds during the past several months. Her fever has resolved. She has not had night sweating. ECOG score is 2, Eyes - No change in vision, ENMT - No hearing loss. She has tinnitus. She has occasional sinus drainage. No mouth sores. She was having sore throat, but that is better. No difficulty swallowing, Hematologic/Lymphatic - No abnormal bruising or bleeding, Respiratory - No shortness of breath. She was having cough, but that has resolved. No pleuritic pain or hemoptysis, Cardiovascular - No angina pain. No palpitations, Gastrointestinal - No nausea or vomiting. Her acid reflux is adequately managed with medication. No diarrhea or constipation. No blood in the stool or black stools, Genitourinary (F) - No dysuria or hematuria. No urinary frequency. She has occasional urgency/incontinence, Musculoskeletal - No joint or bone pain, Integumentary - No skin rash or other skin changes, Neurologic - No headache or dizziness. She has some numbness in her lower legs and feet. She has slight numbness in her fingertips. No other focal neurologic symptoms, Psychiatric - No anxiety or depression. No insomnia. Vital Signs: Performed on Nov 16, 2020 09:15: 0, 0, 21.46, 1.60 sq.m, 64 in, 97 %, 74 /min, 18 /min, 165/68 mm(hg) (HIGH), 98.1 F (LOW), and 125 lbs (HIGH). Physical Examination: Constitutional - She looks pretty good generally, Eyes - Sclerae nonicteric. Conjunctivae clear, ENMT - No lesions noted in the oral cavity, Neck - No mass or thyromegaly, Hematologic/Lymphatic - No cervical, clavicular, or axillary adenopathy, Respiratory - Lungs are clear with good air movement bilaterally, Cardiovascular - Heart rhythm is regular. There is a II/ systolic murmur. There is no gallop or rub noted, Abdomen - Soft and non-tender. Liver and spleen are not enlarged. There is no abdominal mass or ascites noted and there is no inguinal adenopathy, Back/Spine - No spine or CVA tenderness noted, Extremities - Slight edema. Dorsalis pedis pulses are palpable bilaterally, Integumentary - No rashes. No suspicious skin lesions noted, Neurologic - No focal neurologic deficits noted. Problem List: 1. Macrocytic anemia with borderline low white blood cell count and mild thrombocytopenia. 2. She has mild symptoms of peripheral neuropathy. 3. Hypertension. 4. Hyperlipidemia. 5. GERD. 6. She has CT evidence of COPD, though with fairly minimal smoking history. 7. Degenerative arthritis with previous total knee arthroplasty bilaterally. Problems Addressed with this Encounter and Plan: Patient with severe macrocytic anemia and with borderline low white blood cell count and mild thrombocytopenia. As her B12 level was borderline low, there is a possibility that this is due to B12 deficiency, particularly in view of the fact that she also has mild symptoms of peripheral neuropathy. However, the most likely cause is myelodysplastic syndrome. The laboratory findings and clinical implications were reviewed with the patient and her family. She will have additional laboratory studies today to include CBC, comprehensive metabolic profile, sed rate, reticulocyte count, LDH level, and methylmalonic acid and homocystine levels. As her recent transfusion may affect the results of these studies, I also am going to check an antiparietal cell antibody titer, and I will review the blood smear. She will have further evaluation as indicated. My expectation is that she will require bone marrow aspiration/biopsy. Signed By: Alejandro Dorantes M.D. <<Signature on File>>
[2020-11-16 11:33] LABS: Alanine Aminotransferase 9 U/L (0-33); Albumin Level 3.6 g/dL (3.5-5.2); Alkaline Phosphatase 121 IU/L (35-105); Aspartate Amino Transferase 13 U/L (0-32); Blood Urea Nitrogen 13 mg/dL (8-23); Calcium 8.7 mg/dL (8.5-10.5); Carbon Dioxide 25 mmol/L (22-29); Chloride 103 mmol/L (98-107); Globulin 3.8 g/dL (1.3-4.6); Glucose 120 mg/dL (65-115); Osmolality Calculated 287 mOsm/kg (285-295); Sodium 138 mmol/L (136-145); Total Bilirubin 0.9 mg/dL (0.15-1.2); Total Protein 7.4 g/dL (6.6-8.7)
[2020-11-16 11:46] LABS: Lactate Dehydrogenase 251 U/L (135-214)
[2020-11-16 11:47] LABS: Vitamin B12 255 pg/mL (232-1245)
[2020-11-16 12:04] LABS: LAB Peripheral Smear Sent for Review
[2020-11-16 12:11] LABS: Erythrocyte Sedimentation Rate 99 mm/hr (0-15)
[2020-11-18 16:30] LABS: Homocysteine 16.81
[2020-11-22 10:57] LABS: Methylmalonic Acid 1350 nmol/L (87-318)
== END 2020-11-16 08:30 | disposition home or self-care (01) ==
LOC: ONCMED 08:40
PROVIDERS: PCP Family Medicine; Visit Provider Internal Medicine Medical Oncology
DX: D53.9 Nutritional anemia, unspecified (principal); D51.9 Vitamin B12 deficiency anemia, unspecified; D69.6 Thrombocytopenia, unspecified; G62.9 Polyneuropathy, unspecified; I10 Essential (primary) hypertension; E78.5 Hyperlipidemia, unspecified; K21.9 Gastro-esophageal reflux disease without esophagitis; I25.10 Atherosclerotic heart disease of native coronary artery without angina pectoris; Z87.891 Personal history of nicotine dependence; Z96.651 Presence of right artificial knee joint; Z96.652 Presence of left artificial knee joint
CPT/HCPCS: 36415; 80053; 82607; 83090; 83615; 83921; 85025; 85045; 85651; 86255; 86850; 86900; 99205

== ENCOUNTER 2020-11-27 07:46 | Outpatient (CLI) | payer MEDICARE, OTHER, SELFPAY ==
--- NOTE | 2020-11-27 08:29 | XR_ITS ---
WS: [id number] PROCEDURE: XR chest 2V* [id number] CLINICAL INFORMATION: COUGH COMPARISON: January 14, 2020 FINDINGS: Heart: Normal cardiac silhouette. Lungs: Moderate chronic emphysematous changes. No acute pulmonary infiltrates. No focal pneumonia or pleural fluid. Bones: Osteopenia. Mild thoracic kyphosis and thoracic curve. Aortic calcification. XR/XR chest 2V* [id number] IMPRESSION: Moderate chronic emphysematous changes. No acute-appearing pulmonary infiltrate s.
== END 2020-11-27 07:47 | disposition home or self-care (01) ==
PROVIDERS: PCP Family Medicine; Visit Provider Nurse Practitioner Family
DX: R05 Cough (principal)
CPT/HCPCS: 71046

== ENCOUNTER 2020-12-09 15:24 | Outpatient (CLI) | payer MEDICARE, OTHER, SELFPAY ==
[2020-12-09] MEDS: cyanocobalamin 1,000 mcg/mL SDV 1000 MCG SUBCUT (16:30)
[2020-12-09 16:50] LABS: Basophils % 0.2 %; Eosinophils % 0.6 %; Lymphocytes # 1.3 10^3/uL (0.8-4.8); Lymphocytes % 20.6 %; Mean Corpuscular HGB Conc 32.4 g/dL (30.0-36.0); Mean Corpuscular Hemoglobin 33.7 pg (28.0-34.0); Mean Corpuscular Volume 104.2 fl (81-99); Mean Platelet Volume 13.2 fL (7.4-10.4); Monocytes # 0.4 10^3/uL (0.2-0.9); Monocytes % 6.6 %; Neutrophils # 4.57 10^3/uL (1.8-7.7); Neutrophils % 70.2 %; Nucleated Red Blood Cells % 0 %; Platelet Count 52 10^3/cmm (130-400); Red Blood Count 1.66 10^6/uL (4.1-5.3); Red Cell Distribution Width 18.4 % (12.1-15.1); White Blood Count 6.5 10^3/uL (4.0-10.0)
--- NOTE | 2020-12-09 17:07 | ONC FU_ITS ---
Dr. Dorantes Patient Follow-Up Note Patient: Ria Hooks Unit #: [id number]: 1935 Dicatated By: Alejandro Dorantes M.D.Date of Visit:Dec 09, 2020 Onc Med Follow-up/Prog Note Chief Complaint: Anemia. History of Present Illness: This is an 85-year-old woman with pancytopenia and predominant anemia. Somewhere in the range of late September or early October she had developed acute illness with fever, cough, sore throat, and sinusitis symptoms. She also was having some fatigue with that illness. She had then been seen in the office by Omaira Monzon on 11/10/2020. Her main complaint at that time was numbness in her lower legs and feet, which appeared to be due to peripheral neuropathy. At that point she was feeling exhausted. She was found to be severely anemic with her hemoglobin low at 6 g. On further evaluation in the emergency room, her CBC showed hemoglobin 6.1 g with hematocrit 19.5%. The red cell indices were macrocytic with MCV 112.1 and MCH 35.1. The white blood cell count was 4000 with the differential showing 73% neutrophils, 20% lymphocytes, 3% monocytes, and 1% eosinophils. The platelet count was mildly decreased at 113,000. Comprehensive metabolic profile was unremarkable. LDH was slightly elevated at 238/214 U/L. Her serum iron studies showed elevated transferrin saturation at 54.8% and the ferritin also was elevated at 431 ng/mL. B12 was borderline low at 237 pg/mL with folate normal at 10.7 ng/mL. TSH was normal 2.23 ???IU/mL. She was admitted to the hospital and she was transfused 2 units PRBC. She was able to be discharged home the following day. I had seen her initially on 11/16/2020. Her repeat CBC showed hemoglobin increased to 9.1 g with white blood cell count 3700 and platelet count 98,000. The red cell indices were macrocytic with MCV 106 and MCH 33. Her sed rate was significantly elevated at 99 mm/h. Comprehensive metabolic profile was unremarkable except for slightly elevated alkaline phosphatase at 121/105 IU/L. LDH was mildly elevated at 251/214 U/L. B12 level is in the low normal range at 255 pg/mL. Her methylmalonic acid level was found to be significantly elevated at 1350 nmol/L. With those findings, she was recommended to begin B12 injections. Her other medical illnesses include hypertension, hyperlipidemia, GERD, COPD, and degenerative arthritis. She has had previous total knee arthroplasty bilaterally. She has a history of smoking, but limited to a pack of cigarettes daily for 10 years starting at age 20. She is seen for an unplanned visit. She has been feeling worse. She thinks this started after her blood transfusion, but she does seem to be noticeably worse since my initial visit with her last month. She has been feeling weak and shaky, and she has very limited activity. ECOG score is three. She says her appetite is not normal, but she does eat. She has been running fever every evening, in the range of 101 to 102 degrees. She has been having night sweating. She says every day seems worse. She has been having joint pain, particularly the left ankle, which has become swollen. She has had bumps on both legs, which he says feel like bruises. She has had sore throat and she has nonproductive cough. She does not complain of shortness of breath or chest pain. She occasionally has nausea. Bowel and bladder function remain adequate. She has had a hint of headache today. She is sometimes lightheaded when she first gets up. She currently is not reporting numbness/paresthesia or other focal neurologic symptoms. Medications: amLODIPine Besylate 1 Tablet (of 10 mg) Oral daily, Atorvastatin Calcium 1 Tablet (of 20 mg) Oral daily, B-12 (100 mcg) Tablet Oral daily, Bystolic 1 Tablet (of 10 mg) Oral daily, PriLOSEC 1 Capsule (of 20 mg) Capsule Delayed Release Oral daily, ProAir HFA 2 Puff(s) (of 108 (90 base) mcg/act) Aerosol, solution Inhalation four times a day PRN, Valsartan 1 Tablet (of 40 mg) Oral daily Allergies: Nitrofurantoin Macrocrystal Vital Signs: Performed on Dec 09, 2020 16:35 Height - 64.00 in Temperature - 99.5 F (HIGH) Pulse - 90 /min Respiration - 18 /min BP - 130/65 mm(hg) O2 Sat - 93 % (LOW) Pain - 3 Fatigue - 10 Physical Examination: Constitutional - She appears generally weak, Eyes - Sclerae nonicteric. Conjunctivae clear, ENMT - No lesions noted in the oral cavity, Hematologic/Lymphatic - No cervical, clavicular, or axillary adenopathy, Respiratory - Lungs are clear with good air movement bilaterally, Cardiovascular - Heart rhythm is regular. There is a II/ systolic murmur. There is no gallop or rub noted, Abdomen - Soft. Liver and spleen are not enlarged. There is no abdominal mass or ascites noted and there is no inguinal adenopathy, Extremities - There is mild swelling at the left ankle, and it is warm to touch. There is just slight swelling on the right, Neurologic - No focal neurologic deficits noted. Lab/Imaging: Test performed on Nov 16, 2020 10:35 Homocysteine 16.81 umol/L LDH (Total) 251 U/L Methylmalonic Acid 1350 nmol/L Sodium 138 mmol/L Vitamin B12 255 pg/mL Potassium 4.0 mmol/L Chloride 103 mmol/L CO2 25 mmol/L Anion Gap 14.0 BUN 13 mg/dL Creatinine 0.8 mg/dL Cr Clearance (Est) 47.6900 mL/min Glucose 120 mg/dL Osmolality - Calculated 287 mOsm/kg Calcium 8.7 mg/dL Protein, Total 7.4 g/dL Albumin 3.6 g/dL Globulin 3.8 g/dL Bilirubin, Total 0.9 mg/dL ALT (SGPT) 9 U/L AST (SGOT) 13 U/L Alkaline Phosphatase 121 IU/L ESR (Sed Rate) 99 mm/hr Retic Count % 0.7 % WBC 3.7 10 3/uL RBC 2.71 10 6/uL HGB 9.1 g/dL HCT 28.8 % MCV 106.3 fl MCH 33.6 pg MCHC 31.6 g/dL RDW 17.2 % Platelet Count 98 10 3/cmm MPV 12.6 fL Neutrophils 2.75 10 3/uL Lymphocytes 0.7 10 3/uL Monocytes 0.2 10 3/uL Eosinophils 0.0 10 3/uL Basophils 0.0 10 3/uL Neutrophil % 74.7 % Lymphocyte % 18.2 % Monocyte % 5.4 % Eosinophil % 1.1 % Basophils % 0.3 % NRBC % 0 % Anti-D Positive Blood Type AP Antibody Screen (Gel) NEGATIVE Problem List: 1. Macrocytic pancytopenia and predominant macrocytic anemia. 2. She has mild symptoms of peripheral neuropathy. 3. Hypertension. 4. Hyperlipidemia. 5. GERD. 6. She has CT evidence of COPD, though with fairly minimal smoking history. 7. Degenerative arthritis with previous total knee arthroplasty bilaterally. Problems Addressed with this Encounter and Plan: Patient with pancytopenia with predominant macrocytic anemia. Her laboratory studies from 11/16/2020 included a B12 level in the low normal range and a significantly elevated methylmalonic acid level, consistent with B12 deficiency. She also had a significantly elevated sed rate and 99 mm/h. With those findings, she was recommended to begin B12 injections. She presents now with worsening symptoms which include severe weakness/fatigue, daily fever and night sweating, and increased joint pain, particularly in the left ankle. The symptoms, along with the elevated sed rate, suggest that there is more pathology going on than just B12 deficiency. As such, I will go ahead and start her B12 replacement today. However, I will obtain additional laboratory studies to include repeat CBC and comprehensive metabolic profile, sed rate and CRP level, uric acid level, LDH level, and copper level. I also will check blood cultures. She will have further evaluation as indicated, but in the meantime I am going to initiate empiric steroid therapy with prednisone 20 mg twice daily for 3 days then decreasing to 10 mg twice daily. Signed By: Alejandro Dorantes M.D. <<Signature on File>>
[2020-12-09 17:11] LABS: Alanine Aminotransferase 10 U/L (0-33); Albumin Level 3.6 g/dL (3.5-5.2); Alkaline Phosphatase 117 IU/L (35-105); Anion Gap 15.2 (5-19); Aspartate Amino Transferase 12 U/L (0-32); Blood Urea Nitrogen 19 mg/dL (8-23); Calcium 8.7 mg/dL (8.5-10.5); Carbon Dioxide 24 mmol/L (22-29); Chloride 101 mmol/L (98-107); Globulin 3.7 g/dL (1.3-4.6); Glucose 98 mg/dL (65-115); Lactate Dehydrogenase 245 U/L (135-214); Osmolality Calculated 284 mOsm/kg (285-295); Potassium 4.2 mmol/L (3.5-5.1); Sodium 136 mmol/L (136-145); Total Bilirubin 0.9 mg/dL (0.15-1.2); Total Protein 7.3 g/dL (6.6-8.7); Uric Acid 4.3 mg/dL (2.4-5.7)
[2020-12-09 17:26] LABS: Vitamin B12 559 pg/mL (232-1245)
[2020-12-09 17:35] LABS: Hematocrit 17.3 % (37.0-47.0); Hemoglobin 5.6 g/dL (11.5-15.3)
[2020-12-09 17:56] LABS: Erythrocyte Sedimentation Rate > 120 mm/hr (0-15)
[2020-12-09 18:27] LABS: LAB Peripheral Smear Sent for Review
[2020-12-15 09:43] LABS: Methylmalonic Acid 334 nmol/L (87-318)
[2020-12-19 22:13] LABS: Copper Level 168 mcg/dL (70-175)
== END 2020-12-09 15:25 | disposition home or self-care (01) ==
LOC: ONCMED 15:29
PROVIDERS: PCP Family Medicine; Visit Provider Internal Medicine Medical Oncology
DX: D61.818 Other pancytopenia (principal); D53.9 Nutritional anemia, unspecified; E53.8 Deficiency of other specified B group vitamins; R53.1 Weakness; R53.83 Other fatigue; R50.9 Fever, unspecified; M25.572 Pain in left ankle and joints of left foot; I10 Essential (primary) hypertension; E78.5 Hyperlipidemia, unspecified; K21.9 Gastro-esophageal reflux disease without esophagitis; J44.9 Chronic obstructive pulmonary disease, unspecified; Z87.891 Personal history of nicotine dependence; Z79.899 Other long term (current) drug therapy
CPT/HCPCS: 36415; 80053; 82525; 82607; 83615; 83921; 84550; 85025; 85651; 86850; 86900; 87040; 96372; 99215; J3420

== ENCOUNTER 2020-12-10 09:30 | Outpatient (CLI) | payer MEDICARE, OTHER, SELFPAY ==
[2020-12-10 11:30] VITALS: BP 138/58; PULSE 74; RESP 18; TEMP 36.7; O2SAT 97
[2020-12-10 11:45] VITALS: BP 129/56; PULSE 76; RESP 18; TEMP 37; O2SAT 100
[2020-12-10] MEDS: sodium chloride 0.9% 250 ML 999 ML IV (13:25)
[2020-12-10] MEDS: acetaminophen 325 mg Tablet 650 MG PO (13:30)
[2020-12-10] MEDS: diphenhydrAMINE 25 mg Capsule PO (13:35)
[2020-12-10] MEDS: cyanocobalamin 1,000 mcg/mL SDV 1000 MCG SUBCUT (13:45)
[2020-12-10] MEDS: FUROsemide 10 mg/mL SDV 2mL 20 MG IV (14:55)
[2020-12-11 11:30] VITALS: BP 138/58; PULSE 74; RESP 18; TEMP 36.7; O2SAT 97
[2020-12-11 11:45] VITALS: BP 129/53; PULSE 76; RESP 18; TEMP 37; O2SAT 100
[2020-12-11 12:00] VITALS: BP 126/58; PULSE 74; RESP 18; TEMP 37.1; O2SAT 100
== END 2020-12-10 09:31 | disposition home or self-care (01) ==
LOC: ONCMED 09:33
PROVIDERS: PCP Family Medicine; Visit Provider Internal Medicine Medical Oncology
DX: D61.818 Other pancytopenia (principal); D53.9 Nutritional anemia, unspecified
CPT/HCPCS: 36430; 86850; 86900; 86920; 96372; J1100; J1940; J3420; J7050; P9040

== ENCOUNTER 2020-12-11 05:56 | Outpatient (CLI) | payer MEDICARE, OTHER, SELFPAY ==
[2020-12-11] MEDS: cyanocobalamin 1,000 mcg/mL SDV 1000 MCG SUBCUT (09:15)
[2020-12-11 09:43] LABS: Basophils % 0.1 %; Eosinophils % 0.1 %; Hematocrit 25.3 % (37.0-47.0); Hemoglobin 8.5 g/dL (11.5-15.3); Mean Corpuscular HGB Conc 33.6 g/dL (30.0-36.0); Mean Corpuscular Hemoglobin 31.8 pg (28.0-34.0); Mean Corpuscular Volume 94.8 fl (81-99); Mean Platelet Volume 12.5 fL (7.4-10.4); Monocytes # 0.3 10^3/uL (0.2-0.9); Monocytes % 3.9 %; Neutrophils # 7.05 10^3/uL (1.8-7.7); Neutrophils % 81.6 %; Nucleated Red Blood Cells % 0 %; Platelet Count 49 10^3/cmm (130-400); Red Blood Count 2.67 10^6/uL (4.1-5.3); Red Cell Distribution Width 20.1 % (12.1-15.1); White Blood Count 8.7 10^3/uL (4.0-10.0)
[2020-12-11] MEDS: diphenhydrAMINE 25 mg Capsule PO (10:45)
[2020-12-11] MEDS: acetaminophen 325 mg Tablet 650 MG PO (10:45)
[2020-12-11] MEDS: sodium chloride 0.9% 250 ML 999 ML IV (10:45)
== END 2020-12-11 05:57 | disposition home or self-care (01) ==
LOC: ONCMED 05:57
PROVIDERS: PCP Family Medicine; Visit Provider Internal Medicine Medical Oncology
DX: D46.C Myelodysplastic syndrome with isolated del(5q) chromosomal abnormality (principal); D61.818 Other pancytopenia; D51.9 Vitamin B12 deficiency anemia, unspecified; G62.9 Polyneuropathy, unspecified; Z79.899 Other long term (current) drug therapy
CPT/HCPCS: 85025; 96372; 96374; J2920; J3420; J7050

== ENCOUNTER 2020-12-15 09:25 | Day surgery (SDC) | payer MEDICARE, OTHER, SELFPAY ==
[2020-12-14 11:39] VITALS: BMI 22.3
[2020-12-15 09:58] VITALS: BP 179/85; PULSE 64; RESP 18; TEMP 36.6; O2SAT 96
[2020-12-15] MEDS: sodium chloride 0.9% 1,000 ML 30 ML IV (10:51)
--- NOTE | 2020-12-15 10:54 | ANES.PREANE2 ---
Pre-Anesthetic Assessment Pre-Anesthetic Assessment: Height/Weight: Height 1.63 m Weight 58.967 kg Temp Pulse Resp BP Pulse Ox 97.9 F 64 18 179/85 96 12/15/20 09:58 12/15/20 09:58 12/15/20 09:58 12/15/20 09:58 12/15/20 09:58 Preop Diagnosis: Anemia Proposed Procedure: Operation Date: 12/15/20 11:00 Proposed Procedures p Bone Marrow Biospy With Aspiration(Not Applicable) - Harjeet Cleveland MD Was Beta Rupal taken within 24 hours: Yes Last intake: Intake Last Liquid Date 12/14/20 Last Liquid Time 20:00 Last Solid Date 12/14/20 Last Solid Time 19:00 Social: Social History: No alcohol and No tobacco Exam: Pre-Anes Outpt Exam: alert, oriented x 3, clear to auscultation bilaterally and regular rate & rhythm Airway: Submandibular: WNL Cervical ROM: WNL MP: 2 Dentition: Partials Additional comments: upper and lower partials History/ROS: No significant history except as noted and No significant complaints Pulmonary: Pulmonary: COPD CV/HEM: CV/HEM: HTN : : None reported Hepatic: Hepatic: None reported GI: GI: None reported Metabolic: Metabolic: None reported Musc/skel: Musc/skel: OA/DJD Neuropsych: Neuropsych: Anxiety Anesthetic Plan: ASA status: 3 Anesthesia: MAC Risk of > 500 ml blood loss (7ml/kg in children): No Meds/Allergies Current Medications: Current Medications Generic Name Dose Route Start Last Admin Trade Name Freq PRN Reason Stop Dose Admin Sodium Chloride 1,000 mls @ 30 ml s/hr 12/15/20 09:45 12/15/20 10:51 Sodium Chloride 0.9% IV 12/16/20 09:44 30 mls/hr .Q24H CRISTINO Administration PFSH Anesthesia PFSH: Medical History (Updated 11/12/20 @ 00:01 by ) COPD (chronic obstructive pulmonary disease) has not smoked since teenage years, < 2 packs years, 2nd hand exposure COVID-19 vaccine administered Moderna 3 para 3 Hyperlipidemia Hypertension Surgical History (Updated 11/11/20 @ 02:39 by Isa Armenta MD) H/O hemorrhoidectomy (~2014) Family History (Updated 11/11/20 @ 05:08 by Isa Armenta MD) Mother Heart attack Father Pulmonary fibrosis Sister Lung cancer Brother Lung cancer Son History of splenectomy Social History Smoking and tobacco status: former smoker Quit status (tobacco): has quit using tobacco Second hand smoke exposure: Yes Alcohol intake: never Adopted: No Lives independently: No Household members: children Marital status: / Number of children: 4 Number of grandchildren: 7 Highest education level completed: High School Graduate service: No Current occupational status: retired Pets and animals: No History of recent travel: No Leisure activites: other Current gender identity: Female Quin/Rastafari: Latter-Day Special quin needs: No Agree to transfusion: Yes Data Anesthesia Cardiac Studies: No Data to Display
--- NOTE | 2020-12-15 11:26 | P.PCN_ITS ---
Bone Marrow Biopsy Bone Marrow Biopsy: I was consulted by [] office regarding bone marrow biopsy on [Ria Hooks]. Briefly, the patient is a 85 year old [female] with [pancytopenia]. In the Outpatient Services Department, with nursing staff and laboratory technologists in attendance, the procedure was discussed with the patient. Appropriate consent form had been signed. Appropriate alternatives, benefits and risks of procedure were discussed with the patient and she was pre- operatively assessed with a history and physical by myself and cleared for the biopsy procedure. The patient did request IV sedation and that was provided by the Anesthesia Department. Under aseptic condition right posterior iliac area was cleaned and prepped, local anesthesia was given, about 15 cc of bone marrow aspirate and core biopsy was obtained, hemostasis was obtained, patient tolerated procedure well, specimen was sent for routine histopathology, leukemia panel, FISH for MDS, flow cytometry and cytogenetics. Postprocedure nursing instructions were given Thank you for allowing me to participate in this patient's care and diagnosis. Coding Level of Care Code Acute Inspector Water Pollution Control for Thanh Davis
[2020-12-15 11:30] VITALS: BP 152/69; PULSE 68; RESP 18; TEMP 36.7; O2SAT 99
[2020-12-15 11:41] VITALS: BP 178/65; PULSE 61; RESP 18; O2SAT 98
[2020-12-15 11:43] LABS: Eosinophils % 0.1 %; Hematocrit 30.1 % (37.0-47.0); Hemoglobin 9.9 g/dL (11.5-15.3); Lymphocytes # 0.8 10^3/uL (0.8-4.8); Lymphocytes % 11.6 %; Mean Corpuscular HGB Conc 32.9 g/dL (30.0-36.0); Mean Corpuscular Hemoglobin 32.2 pg (28.0-34.0); Mean Platelet Volume 12.1 fL (7.4-10.4); Monocytes # 0.5 10^3/uL (0.2-0.9); Monocytes % 7.4 %; Neutrophils # 5.34 10^3/uL (1.8-7.7); Neutrophils % 76.2 %; Nucleated Red Blood Cells % 0 %; Platelet Count 45 10^3/cmm (130-400); Red Blood Count 3.07 10^6/uL (4.1-5.3)
[2020-12-15 12:00] VITALS: BP 171/97; PULSE 60; RESP 18; O2SAT 97
[2020-12-15 12:10] VITALS: BP 172/66; PULSE 60; RESP 18; O2SAT 99
--- NOTE | 2020-12-15 12:22 | SUR.PHASEII ---
Dressing to right hip remains D/I. No bleeding or hematoma noted. Pt given discharge instructions and verbalized understanding. Pt off floor via wheelchair to be taken home by son.
--- NOTE | 2020-12-16 07:50 | ANE.PACU2 ---
Inpatient post-anesthesia follow up: Airway intact: Yes Vital signs: Temperature 98.0 F Pulse Rate 60 Respiratory Rate 18 Blood Pressure 172/66 Pulse Oximetry 99 Oxygen Delivery Me thod Room Air Oxygen Flow Rate Fraction of Inspir ed Oxygen Hydration adequate: Yes Nausea and vomiting: No Pain level: 1 Mental status: Baseline
[2020-12-21 08:04] LABS: Miscellaneous Test See Scanned Lab Rpt
[2021-01-01 12:26] LABS: Miscellaneous Test See Scanned Lab Rpt
== END 2020-12-15 12:24 | disposition home or self-care (01) ==
PROVIDERS: PCP Family Medicine; Visit Provider Internal Medicine Hematology & Oncology
PROC: 07DT3ZX Extraction of Bone Marrow, Percutaneous Approach, Diagnostic (ICD-10-PCS; CPT 38222; principal; 2020-12-15 11:00)
DX: D61.818 Other pancytopenia (principal); J44.9 Chronic obstructive pulmonary disease, unspecified; I10 Essential (primary) hypertension; M19.90 Unspecified osteoarthritis, unspecified site; E78.5 Hyperlipidemia, unspecified; Z87.891 Personal history of nicotine dependence
CPT/HCPCS: 36415; 38222; 85025; 88184; 88185; 88237; 88264; 88305; 88311; 88367; 88374; 96360; J2704; J7030

== ENCOUNTER 2020-12-18 07:39 | Outpatient (CLI) | payer MEDICARE, OTHER, SELFPAY ==
[2020-12-18 08:31] LABS: Basophils % 0.1 %; Eosinophils % 0.1 %; Hematocrit 34.2 % (37.0-47.0); Hemoglobin 11.2 g/dL (11.5-15.3); Lymphocytes # 1.2 10^3/uL (0.8-4.8); Lymphocytes % 12.2 %; Mean Corpuscular HGB Conc 32.7 g/dL (30.0-36.0); Mean Corpuscular Hemoglobin 32.2 pg (28.0-34.0); Mean Corpuscular Volume 98.3 fl (81-99); Mean Platelet Volume 13.2 fL (7.4-10.4); Monocytes # 0.8 10^3/uL (0.2-0.9); Neutrophils # 7.58 10^3/uL (1.8-7.7); Neutrophils % 77.7 %; Nucleated Red Blood Cells % 0 %; Platelet Count 64 10^3/cmm (130-400); Red Blood Count 3.48 10^6/uL (4.1-5.3); Red Cell Distribution Width 16.5 % (12.1-15.1); White Blood Count 9.8 10^3/uL (4.0-10.0)
[2020-12-18 09:04] LABS: Slide Review Slide Review Perform
== END 2020-12-18 07:40 | disposition home or self-care (01) ==
LOC: ONCMED 07:55
PROVIDERS: PCP Family Medicine; Visit Provider Internal Medicine Medical Oncology
DX: D61.818 Other pancytopenia (principal); D64.9 Anemia, unspecified
CPT/HCPCS: 36415; 85025

== ENCOUNTER 2020-12-28 06:30 | Outpatient (CLI) | payer MEDICARE, OTHER, SELFPAY ==
[2020-12-28] MEDS: cyanocobalamin 1,000 mcg/mL SDV 1000 MCG SUBCUT (12:00)
[2020-12-28 12:11] LABS: Basophils % 0.1 %; Eosinophils % 0.1 %; Hemoglobin 8.7 g/dL (11.5-15.3); Lymphocytes # 0.9 10^3/uL (0.8-4.8); Lymphocytes % 6.4 %; Mean Corpuscular HGB Conc 32.2 g/dL (30.0-36.0); Mean Corpuscular Hemoglobin 31.6 pg (28.0-34.0); Mean Corpuscular Volume 98.2 fl (81-99); Mean Platelet Volume 12.2 fL (7.4-10.4); Monocytes # 0.8 10^3/uL (0.2-0.9); Monocytes % 5.9 %; Neutrophils # 11.91 10^3/uL (1.8-7.7); Nucleated Red Blood Cells % 0 %; Platelet Count 50 10^3/cmm (130-400); Red Blood Count 2.75 10^6/uL (4.1-5.3); Red Cell Distribution Width 17.2 % (12.1-15.1)
[2020-12-28 12:39] LABS: Alanine Aminotransferase 18 U/L (0-33); Albumin Level 3.9 g/dL (3.5-5.2); Alkaline Phosphatase 115 IU/L (35-105); Anion Gap 15.9 (5-19); Aspartate Amino Transferase 19 U/L (0-32); Blood Urea Nitrogen 25 mg/dL (8-23); Carbon Dioxide 24 mmol/L (22-29); Chloride 102 mmol/L (98-107); Glucose 106 mg/dL (65-115); Lactate Dehydrogenase 522 U/L (135-214); Osmolality Calculated 289 mOsm/kg (285-295); Potassium 4.9 mmol/L (3.5-5.1); Sodium 137 mmol/L (136-145); Total Bilirubin 0.8 mg/dL (0.15-1.2); Total Protein 6.9 g/dL (6.6-8.7)
--- NOTE | 2020-12-28 12:59 | ONC FU_ITS ---
Dr. Dorantes Patient Follow-Up Note Patient: Ria Hooks Unit #: [id number]: [id number] Dicatated By: Alejandro Dorantes M.D.Date of Visit:Dec 28, 2020 Onc Med Follow-up/Prog Note Chief Complaint: Anemia. History of Present Illness: This is an 85-year-old woman with pancytopenia and predominant anemia. Somewhere in the range of late September or early October she had developed acute illness with fever, cough, sore throat, and sinusitis symptoms. She also was having some fatigue with that illness. She had then been seen in the office by Omaira Monzon on 11/10/2020. Her main complaint at that time was numbness in her lower legs and feet, which appeared to be due to peripheral neuropathy. At that point she was feeling exhausted. She was found to be severely anemic with her hemoglobin low at 6 g. On further evaluation in the emergency room, her CBC showed hemoglobin 6.1 g with hematocrit 19.5%. The red cell indices were macrocytic with MCV 112.1 and MCH 35.1. The white blood cell count was 4000 with the differential showing 73% neutrophils, 20% lymphocytes, 3% monocytes, and 1% eosinophils. The platelet count was mildly decreased at 113,000. Comprehensive metabolic profile was unremarkable. LDH was slightly elevated at 238/214 U/L. Her serum iron studies showed elevated transferrin saturation at 54.8% and the ferritin also was elevated at 431 ng/mL. B12 was borderline low at 237 pg/mL with folate normal at 10.7 ng/mL. TSH was normal 2.23 ???IU/mL. She was admitted to the hospital and she was transfused 2 units PRBC. She was able to be discharged home the following day. I had seen her initially on 11/16/2020. Her repeat CBC showed hemoglobin increased to 9.1 g with white blood cell count 3700 and platelet count 98,000. The red cell indices were macrocytic with MCV 106 and MCH 33. Her sed rate was significantly elevated at 99 mm/h. Comprehensive metabolic profile was unremarkable except for slightly elevated alkaline phosphatase at 121/105 IU/L. LDH was mildly elevated at 251/214 U/L. B12 level is in the low normal range at 255 pg/mL. Her methylmalonic acid level was found to be significantly elevated at 1350 nmol/L. With those findings, she was recommended to begin B12 injections. Her other medical illnesses include hypertension, hyperlipidemia, GERD, COPD, and degenerative arthritis. She has had previous total knee arthroplasty bilaterally. She has a history of smoking, but limited to a pack of cigarettes daily for 10 years starting at age 20. INTERIM HISTORY: She was seen for a follow-up visit on 12/09/2020. She had worsening weakness/fatigue despite the B12 injections and she again required PRBC transfusion with her hemoglobin back down to 5.6 g. She also reported having increasing joint pain, and with her sedimentation rate significantly elevated I opted to start her on steroid therapy with prednisone. She then underwent bone marrow aspiration/biopsy on 12/15/2020. The aspirate specimen was very limited, and the interpretation was largely based on the biopsy. The marrow did appear to be hypercellular, estimated at 50 to 80%. There was noted to be myeloid predominance with dismyelopoiesis and dysmegakaryopoiesis. Blasts were estimated at approximately 8%. Iron stores were noted to be increased. 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 The cytogenetic analysis is pending. 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 She is seen for a follow-up visit. She has been feeling much better since starting the prednisone. She is still taking 10 mg twice daily. Her energy is better, and she is now doing yard work and housework. Her ECOG score is 1. Her appetite is getting better. She has not had fever. She is still waking up at night soaking wet. She has not had sore mouth or throat. She does not complain of cough, and she has not been having shortness of breath or chest pain. She has no GI or complaints other than some ongoing problems with constipation. She still has some weakness and shakiness in her legs. She says a sensation in her legs is also not good and she has some associated difficulty with balance. She has been bruising easily. Medications: amLODIPine Besylate 1 Tablet (of 10 mg) Oral daily, Atorvastatin Calcium 1 Tablet (of 20 mg) Oral daily, B-12 (100 mcg) Tablet Oral daily, Bystolic 1 Tablet (of 10 mg) Oral daily, PriLOSEC 1 Capsule (of 20 mg) Capsule Delayed Release Oral daily, ProAir HFA 2 Puff(s) (of 108 (90 base) mcg/act) Aerosol, solution Inhalation four times a day PRN, Valsartan 1 Tablet (of 40 mg) Oral daily Allergies: Nitrofurantoin Macrocrystal Vital Signs: Performed on Dec 28, 2020 10:44 Height - 64.00 in Weight - 123.2 lbs (LOW) BSA - 1.59 sq.m BMI - 21.15 Temperature - 98.4 F Pulse - 85 /min Respiration - 18 /min BP - 151/80 mm(hg) (HIGH) O2 Sat - 95 % (LOW) Pain - 8 Fatigue - 0 Physical Examination: Constitutional - She looks better generally, Eyes - Sclerae nonicteric. Conjunctivae clear, ENMT - No lesions noted in the oral cavity, Hematologic/Lymphatic - No cervical, clavicular, or axillary adenopathy, Respiratory - Lungs are clear with good air movement bilaterally, Cardiovascular - Heart rhythm is regular. There is a II/ systolic murmur. There is no gallop or rub noted, Abdomen - Soft. Liver and spleen are not enlarged. There is no abdominal mass or ascites noted and there is no inguinal adenopathy, Extremities - Mild edema, Neurologic - No focal neurologic deficits noted. Lab/Imaging: Test performed on Dec 18, 2020 08:05 WBC 9.8 10 3/uL RBC 3.48 10 6/uL HGB 11.2 g/dL HCT 34.2 % MCV 98.3 fl MCH 32.2 pg MCHC 32.7 g/dL RDW 16.5 % Platelet Count 64 10 3/cmm MPV 13.2 fL Neutrophils 7.58 10 3/uL Lymphocytes 1.2 10 3/uL Monocytes 0.8 10 3/uL Eosinophils 0.0 10 3/uL Basophils 0.0 10 3/uL Neutrophil % 77.7 % Lymphocyte % 12.2 % Monocyte % 8.0 % Eosinophil % 0.1 % Basophils % 0.1 % NRBC % 0 % CBC Slide Review Slide Review Perform SLIDE REVIEW AGREES WITH AUTOMATED RESULTS ST Problem List: 1. 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 She has associated pancytopenia with predominant anemia. 2. She had mild symptoms of peripheral neuropathy, and she was found to have evidence of B12 deficiency. 3. Hypertension. 4. Hyperlipidemia. 5. GERD. 6. She has CT evidence of COPD, though with fairly minimal smoking history. 7. Degenerative arthritis with previous total knee arthroplasty bilaterally. Problems Addressed with this Encounter and Plan: Patient with pancytopenia with predominant macrocytic anemia. Her laboratory studies from 11/16/2020 included a B12 level in the low normal range and a significantly elevated methylmalonic acid level, consistent with B12 deficiency. She also had a significantly elevated sed rate and 99 mm/h. With those findings, she was recommended to begin B12 injections. She then presented with worsening symptoms which include severe weakness/fatigue, daily fever and night sweating, and increased joint pain. She continued her B12 replacement, but at that point I also opted to have her start steroid therapy. She then underwent bone marrow aspiration/biopsy on 12/15/2020. The marrow was hypercellular with blasts estimated at 8%. The FISH panel for MDS was positive for chromosome 5q deletion. Based on her current CBC and estimated 8% blasts in the bone marrow, her IPSS-R calculates to 4.5, intermediate risk. She will have repeat laboratory studies today to include CBC, comprehensive metabolic profile, LDH level, and erythropoietin level. For now she will continue her B12 replacement. She also will continue prednisone, though I will have her reduce the dosage to 10 mg daily. Given the bone marrow findings, she will begin treatment with lenalidomide 10 mg daily, subject to verification of insurance coverage. She will have a repeat CBC in 1 week and a follow-up visit in 2 weeks. Signed By: Alejandro Dorantes M.D. <<Signature on File>>
[2020-12-29 13:58] LABS: Erythropoietin 348.1 mIU/mL (2.6-18.5)
== END 2020-12-28 06:31 | disposition home or self-care (01) ==
LOC: ONCMED 06:30
PROVIDERS: PCP Family Medicine; Visit Provider Internal Medicine Medical Oncology
DX: D46.C Myelodysplastic syndrome with isolated del(5q) chromosomal abnormality (principal); D61.818 Other pancytopenia; G62.9 Polyneuropathy, unspecified; I10 Essential (primary) hypertension; E78.5 Hyperlipidemia, unspecified; K21.9 Gastro-esophageal reflux disease without esophagitis; M19.90 Unspecified osteoarthritis, unspecified site; Z79.899 Other long term (current) drug therapy
CPT/HCPCS: 36415; 80053; 82668; 83615; 85025; 96372; 99215; J3420

== ENCOUNTER 2021-01-22 07:59 | Outpatient (RCR) | payer MEDICARE, OTHER, SELFPAY ==
[2021-01-07 10:12] LABS: Basophils % 0.1 %; Eosinophils % 0.1 %; Hematocrit 22.1 % (37.0-47.0); Hemoglobin 7.2 g/dL (11.5-15.3); Lymphocytes # 1.3 10^3/uL (0.8-4.8); Lymphocytes % 13.7 %; Mean Corpuscular HGB Conc 32.6 g/dL (30.0-36.0); Mean Corpuscular Hemoglobin 32.1 pg (28.0-34.0); Mean Corpuscular Volume 98.7 fl (81-99); Mean Platelet Volume 12.7 fL (7.4-10.4); Monocytes # 0.8 10^3/uL (0.2-0.9); Monocytes % 7.7 %; Neutrophils # 7.15 10^3/uL (1.8-7.7); Nucleated Red Blood Cells % 0 %; Platelet Count 33 10^3/cmm (130-400); Red Blood Count 2.24 10^6/uL (4.1-5.3); Red Cell Distribution Width 17.1 % (12.1-15.1); White Blood Count 9.7 10^3/uL (4.0-10.0)
[2021-01-07 11:26] LABS: Alanine Aminotransferase 17 U/L (0-33); Albumin Level 3.8 g/dL (3.5-5.2); Alkaline Phosphatase 96 IU/L (35-105); Anion Gap 14.8 (5-19); Aspartate Amino Transferase 16 U/L (0-32); Blood Urea Nitrogen 27 mg/dL (8-23); Calcium 9.4 mg/dL (8.5-10.5); Carbon Dioxide 24 mmol/L (22-29); Chloride 102 mmol/L (98-107); Globulin 2.8 g/dL (1.3-4.6); Glucose 121 mg/dL (65-115); Osmolality Calculated 288 mOsm/kg (285-295); Potassium 4.8 mmol/L (3.5-5.1); Sodium 136 mmol/L (136-145); Total Bilirubin 0.6 mg/dL (0.15-1.2); Total Protein 6.6 g/dL (6.6-8.7)
[2021-01-08] MEDS: acetaminophen 325 mg Tablet 650 MG PO (08:30)
[2021-01-08] MEDS: diphenhydrAMINE 25 mg Capsule PO (08:30)
[2021-01-08] MEDS: sodium chloride 0.9% 250 ML 999 ML IV (08:30)
[2021-01-08 08:37] VITALS: BP 115/61; PULSE 65; RESP 16; TEMP 36.9; O2SAT 98
[2021-01-08 08:52] VITALS: BP 117/59; PULSE 60; RESP 17; TEMP 36.9; O2SAT 98
[2021-01-08 09:07] VITALS: BP 116/62; PULSE 70; RESP 18; TEMP 36.8; O2SAT 98
[2021-01-08 09:35] VITALS: BP 126/57; PULSE 73; RESP 18; TEMP 37.2; O2SAT 99
[2021-01-08] MEDS: FUROsemide 10 mg/mL SDV 2mL 20 MG IV (10:10)
[2021-01-08 10:15] VITALS: BP 117/60; PULSE 65; RESP 18; TEMP 36.8; O2SAT 98
[2021-01-08 11:45] VITALS: BP 116/60; PULSE 62; RESP 18; TEMP 36.9; O2SAT 98
[2021-01-11 12:08] LABS: Eosinophils % 0.2 %; Hematocrit 28.5 % (37.0-47.0); Hemoglobin 9.2 g/dL (11.5-15.3); Lymphocytes # 0.9 10^3/uL (0.8-4.8); Mean Corpuscular HGB Conc 32.3 g/dL (30.0-36.0); Mean Corpuscular Hemoglobin 30.7 pg (28.0-34.0); Monocytes # 0.3 10^3/uL (0.2-0.9); Monocytes % 4.2 %; Neutrophils # 4.74 10^3/uL (1.8-7.7); Neutrophils % 79.1 %; Nucleated Red Blood Cells % 0 %; Red Cell Distribution Width 16.5 % (12.1-15.1)
[2021-01-11 12:34] LABS: Slide Review Slide Review Perform
[2021-01-11 12:36] LABS: Alanine Aminotransferase 15 U/L (0-33); Albumin Level 3.8 g/dL (3.5-5.2); Alkaline Phosphatase 97 IU/L (35-105); Anion Gap 13.6 (5-19); Aspartate Amino Transferase 16 U/L (0-32); Blood Urea Nitrogen 24 mg/dL (8-23); Calcium 8.8 mg/dL (8.5-10.5); Carbon Dioxide 23 mmol/L (22-29); Chloride 105 mmol/L (98-107); Globulin 2.6 g/dL (1.3-4.6); Glucose 114 mg/dL (65-115); Osmolality Calculated 289 mOsm/kg (285-295); Potassium 4.6 mmol/L (3.5-5.1); Sodium 137 mmol/L (136-145); Total Bilirubin 0.6 mg/dL (0.15-1.2); Total Protein 6.4 g/dL (6.6-8.7)
[2021-01-11 12:37] LABS: Platelet Count 20 10^3/cmm (130-400)
--- NOTE | 2021-01-17 23:35 | ONC FU_ITS ---
[facility] Patient Note Patient: Ria Hooks Unit #: [id number]: 1935 Dictated By: Enedina CombsDate of Visit: Jan 07, 2021 Onc MED Follow-Up/Prog Note Chief Complaint: Anemia. History of Present Illness: Ms Hooks is an 85-year-old woman with pancytopenia and predominant anemia. Somewhere in the range of late September or early October she had developed acute illness with fever, cough, sore throat, and sinusitis symptoms. She also was having some fatigue with that illness. She had then been seen in the office by Omaira Monzon on 11/10/2020. Her main complaint at that time was numbness in her lower legs and feet, which appeared to be due to peripheral neuropathy. At that point she was feeling exhausted. She was found to be severely anemic with her hemoglobin low at 6 g. On further evaluation in the emergency room, her CBC showed hemoglobin 6.1 g with hematocrit 19.5%. The red cell indices were macrocytic with MCV 112.1 and MCH 35.1. The white blood cell count was 4000 with the differential showing 73% neutrophils, 20% lymphocytes, 3% monocytes, and 1% eosinophils. The platelet count was mildly decreased at 113,000. Comprehensive metabolic profile was unremarkable. LDH was slightly elevated at 238/214 U/L. Her serum iron studies showed elevated transferrin saturation at 54.8% and the ferritin also was elevated at 431 ng/mL. B12 was borderline low at 237 pg/mL with folate normal at 10.7 ng/mL. TSH was normal 2.23 ???IU/mL. She was admitted to the hospital and she was transfused 2 units PRBC. She was able to be discharged home the following day. Dr Dorantes had seen her initially on 11/16/2020. Her repeat CBC showed hemoglobin increased to 9.1 g with white blood cell count 3700 and platelet count 98,000. The red cell indices were macrocytic with MCV 106 and MCH 33. Her sed rate was significantly elevated at 99 mm/h. Comprehensive metabolic profile was unremarkable except for slightly elevated alkaline phosphatase at 121/105 IU/L. LDH was mildly elevated at 251/214 U/L. B12 level is in the low normal range at 255 pg/mL. Her methylmalonic acid level was found to be significantly elevated at 1350 nmol/L. With those findings, she was recommended to begin B12 injections. Her other medical illnesses include hypertension, hyperlipidemia, GERD, COPD, and degenerative arthritis. She has had previous total knee arthroplasty bilaterally. She has a history of smoking, but limited to a pack of cigarettes daily for 10 years starting at age 20. INTERIM HISTORY: She was seen for a follow-up visit on 12/09/2020. She had worsening weakness/fatigue despite the B12 injections and she again required PRBC transfusion with her hemoglobin back down to 5.6 g. She also reported having increasing joint pain, and with her sedimentation rate significantly elevated, Dr Dorantes opted to start her on steroid therapy with prednisone. She then underwent bone marrow aspiration/biopsy on 12/15/2020. The aspirate specimen was very limited, and the interpretation was largely based on the biopsy. The marrow did appear to be hypercellular, estimated at 50 to 80%. There was noted to be myeloid predominance with dismyelopoiesis and dysmegakaryopoiesis. Blasts were estimated at approximately 8%. Iron stores were noted to be increased. 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 The cytogenetic analysis is pending. 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 Dr. Dorantes had seen Ms Hooks for a follow-up on December 29, 2019 and have reviewed bone marrow biopsy reports with her. She had bone marrow aspiration biopsy on 12/15/2020. The marrow was hypocellular with blast estimated 8%. The FISH panel was evaluated for MDS and was positive for chromosome 5 deletion. Her IPSS???R calculated to 4.5, intermediate risk based on the CBC and the estimated 8% blasts in the bone marrow. Dr. Dorantes then recommended that she begin treatment with lenalidomide 10 mg daily. Ms. Hooks is here today for follow-up and initiation of her first cycle of lenalidomide 10 mg daily days 1 through 28 (28 day cycle). She is accompanied by her niece today. Her lab today reveals a white count of 9.7, hemoglobin 7.2 and platelet count of 33,000. Her ANC is 7150. I did call Dr. Dorantes prior to seeing Ms. Hooks as he was out of the office. We did discuss the pros and cons of treating her but felt that it was imperative to go and start her treatment. We will do 2 units of packed red blood cells if she is agreeable and monitor her labs again on Monday. She may need platelets at that time unless she is actively bleeding now and we can go ahead with platelets if needed. I spoke with Ms. Hooks and her niece and informed them of her lab work and the decrease in her hemoglobin from 8.7 on December 28- 0.2 today and the platelet count from 50,000 on December 28 2020-33,000 today. They are agreeable to pursue 2 units of packed red blood cells as she is symptomatic. She states she is having more fatigue and shortness of breath. She is hosting a wedding at her house this weekend and states that she would like to feel good for that if possible. She denies any active bleeding. She has had some intermittent bruising but states that is really not abnormal for her. She denies any fever or chills. She said no signs or symptoms of infection for at least the last 72 hours. She denies chest pain or palpitations. She has had increased shortness of breath. She states that she is tired and short of breath with minimal exertion. She denies any nausea or vomiting. She denies diarrhea or constipation. She has mild pre-existing neuropathy. She does have degenerative arthritis but states that that is stable. Her ECOG today is 2. Past Medical History: Chronic obstructive pulmonary disease Degenerative arthritis Gastroesophageal reflux disease Hyperlipidemia Hypertension Past Surgical History: Hemorrhoidectomy Total knee arthroplasty bilaterally Covid vaccine #1 moderna in 2020 Covid vaccine #2 moderna in 2020 Allergies: Nitrofurantoin Macrocrystal Medications: amLODIPine Besylate 1 Tablet (of 10 mg) Oral daily Atorvastatin Calcium 1 Tablet (of 20 mg) Oral daily B-12 (100 mcg) Tablet Oral daily Bystolic 1 Tablet (of 10 mg) Oral daily PriLOSEC 1 Capsule (of 20 mg) Capsule Delayed Release Oral daily ProAir HFA 2 Puff(s) (of 108 (90 base) mcg/act) Aerosol, solution Inhalation four times a day PRN Valsartan 1 Tablet (of 40 mg) Oral daily Family History: Father of stroke at age 87. Mother of heart disease at age 67. A brother with melanoma at age 87. He also had prostate cancer. A sister of lung cancer at age 72. Social History: Ms. Hooks is . Ms. Hooks no longer smokes. She has no history of drinking. She has a history of smoking up to a pack of cigarettes daily for 10 years, beginning at age 20. She does not drink alcohol. Review Of Symptoms: <See Above> Vital Signs: Performed on Jan 07, 2021 11:14 Height - 64.00 in Weight - 121.4 lbs (LOW) BSA - 1.58 sq.m BMI - 20.84 Temperature - 97.4 F (LOW) Pulse - 74 /min Respiration - 18 /min BP - 121/59 mm(hg) O2 Sat - 99 % Pain - 0 Fatigue - 5,2 - Ambulatory/capable of all self-care, unable to perform any work activities. Up and about more than 50% of waking hours. (ECOG) Physical Examination: Constitutional Alert, oriented, no acute distress. Skin pale- pink, warm and dry. Head Normocephalic; atraumatic. Eyes Conjunctivae and sclerae are clear and without icterus. Pupils are reactive and equal. ENMT No oral exudates, ulcers, masses, thrush or mucositis. Oropharynx clear. Tongue normal. Hematologic/Lymphatic No petechiae or purpura. No tender or palpable lymph nodes in the cervical or supraclavicular areas. Respiratory Lungs are clear to auscultation without rhonchi or wheezing. Cardiovascular Regular rate and rhythm of heart without murmurs,clicks, gallops or rubs. Back/Spine Non-tender to palpation. Extremities No visible deformities, no cyanosis, clubbing or edema. Musculoskeletal No tenderness or swelling, normal range of motion without obvious weakness. Integumentary No rashes or lesions. Neurologic No sensory or motor deficits, normal cerebellar function, normal gait. Psychiatric Alert and oriented times three. Coherent speech. Verbalizes understanding of our discussions today. Impression: 1. 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 She has associated pancytopenia with predominant anemia. 2. She had mild symptoms of peripheral neuropathy, and she was found to have evidence of B12 deficiency. 3. Hypertension. 4. Hyperlipidemia. 5. GERD. 6. She has CT evidence of COPD, though with fairly minimal smoking history. 7. Degenerative arthritis with previous total knee arthroplasty bilaterally. Plan/Problems Addressed at this Visit: 1. 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 Her laboratory studies from 11/16/2020 included a B12 level in the low normal range and a significantly elevated methylmalonic acid level, consistent with B12 deficiency. She also had a significantly elevated sed rate and 99 mm/h. With those findings, she was recommended to begin B12 injections. She then presented with worsening symptoms which include severe weakness/fatigue, daily fever and night sweating, and increased joint pain. She continued her B12 replacement, but at that point I also opted to have her start steroid therapy. She then underwent bone marrow aspiration/biopsy on 12/15/2020. The marrow was hypercellular with blasts estimated at 8%. The FISH panel for MDS was positive for chromosome 5q deletion. Based on her current CBC and estimated 8% blasts in the bone marrow, her IPSS-R calculates to 4.5, intermediate risk. A. Proceed with Prednisone 10 mg daily. B. Proceed with lenalidomide 10 mg every other day instead of 10 mg daily due to anemia and thrombocytopenia. We will request 5 mg tablets so that she may take 5 mg daily. C. She will need prophylaxis with Bactrim DS 1 tablet 3 times weekly; acyclovir 400 mg twice daily. Will not start on aspirin at this time given the thrombocytopenia. She will also need prochlorperazine 10 mg every 4 to 6 as needed nausea. D. Her labs from today were reviewed in detail and discussed with Mrs. Hooks and her niece and a copy was given to them. WBC 9.7, hemoglobin 7.2, hematocrit was 22.1 platelets 33,000, ANC is 7150. E. We discussed her labs at length and the fact that if we do not treat with the lenalidomide her counts will drop but if we do treat with the lenalidomide they will most likely drop as well. We discussed that she will receive supportive care with blood transfusions and platelets as needed and of course hydration if needed however she has had no signs of dehydration and is doing well overall thus far. F. She is advised to avoid grapefruit products with the lenalidomide. Again she will take it every other day for now. G. We discussed other side effects such as rash, fatigue, bruising/bleeding, nausea/vomiting, diarrhea/constipation amongst many others. She was given written instructions on drug information. H. We will plan to see her back tomorrow for transfusion services. Ms. Hooks was instructed should she have any worsening of symptoms or any bleeding to present to the emergency room in the interim. I. We will plan to see her back early on Monday with repeat CBC CMP and typenex. J. Mrs. Hinton was instructed to contact us in the interim should questions or problems arise. K. The patient and family were informed of chemotherapy plan and specific drugs were discussed. We also discussed how chemotherapy works and identified common side effects including alopecia; myelosuppression-including neutropenia, anemia, thrombocytopenia; peripheral neuropathy; fatigue; nausea; diarrhea; constipation; bleeding or bruising; skin changes-rash/dryness; mouth sores; drug hypersensitivity/allergic reactions or anaphylaxis and increased risk of blood clots. They have also been informed how to contact the clinic with side effects or symptoms, including but not limited to fever greater than 100.4???, chills, sore throat, bleeding or bruising that is not explained or mouth sores, cough, nasal discharge, diarrhea, constipation, nausea and/or vomiting not relieved with medications on hand at home, as well as any other concern or question they may have. Our hours are 8:00 a.m. to 4:30 p.m. on Monday through and 8-12:00 on Monday. However, someone is patient relations liaison 24 hours per day and they have been advised to contact the [facility] at if it is after hours. We have also discussed potential long-term side effects of chemotherapy including secondary cancers, infertility, pulmonary complications, cardiac complications, and again peripheral neuropathy. We have discussed that they certainly need to let us know before taking any antioxidants or herbal or further dietary supplements, as we are unsure of how these agents react with chemotherapy and we request that they avoid these products for now. They were informed that it is okay to take multivitamins at normal doses. They verbally state that they understand to take all medications as directed by their healthcare provider unless otherwise indicated. Instructions for oral care with baking soda and salt water rinses as well as a guide for use of [id number] medication were provided with the treatment plan. They have been given a written patient treatment plan, of which a copy is in the chart, as well as specific drug information. They have no questions and verbalized understanding and are willing to proceed with chemotherapy at this time. The majority of this visit (60 mintues) was spent in face to face communication with this patient and/or his/her family in regards to plan of care, side effect identification and management. Signed By: Enedina Combs-, AOCNP Alejandro Dorantes MD <<Signature on File>>
--- NOTE | 2021-01-18 01:15 | ONC FU_ITS ---
[facility] Patient Note Patient: Ria Hooks Unit #: [id number]: [id number] Dictated By: Enedina CombsDate of Visit: Jan 11, 2021 Onc MED Follow-Up/Prog Note Chief Complaint: Anemia. History of Present Illness: Ms Hooks is an 85-year-old woman with pancytopenia and predominant anemia. Somewhere in the range of late September or early October she had developed acute illness with fever, cough, sore throat, and sinusitis symptoms. She also was having some fatigue with that illness. She had then been seen in the office by Omaira Monzon on 11/10/2020. Her main complaint at that time was numbness in her lower legs and feet, which appeared to be due to peripheral neuropathy. At that point she was feeling exhausted. She was found to be severely anemic with her hemoglobin low at 6 g. On further evaluation in the emergency room, her CBC showed hemoglobin 6.1 g with hematocrit 19.5%. The red cell indices were macrocytic with MCV 112.1 and MCH 35.1. The white blood cell count was 4000 with the differential showing 73% neutrophils, 20% lymphocytes, 3% monocytes, and 1% eosinophils. The platelet count was mildly decreased at 113,000. Comprehensive metabolic profile was unremarkable. LDH was slightly elevated at 238/214 U/L. Her serum iron studies showed elevated transferrin saturation at 54.8% and the ferritin also was elevated at 431 ng/mL. B12 was borderline low at 237 pg/mL with folate normal at 10.7 ng/mL. TSH was normal 2.23 ???IU/mL. She was admitted to the hospital and she was transfused 2 units PRBC. She was able to be discharged home the following day. Dr Dorantes had seen her initially on 11/16/2020. Her repeat CBC showed hemoglobin increased to 9.1 g with white blood cell count 3700 and platelet count 98,000. The red cell indices were macrocytic with MCV 106 and MCH 33. Her sed rate was significantly elevated at 99 mm/h. Comprehensive metabolic profile was unremarkable except for slightly elevated alkaline phosphatase at 121/105 IU/L. LDH was mildly elevated at 251/214 U/L. B12 level is in the low normal range at 255 pg/mL. Her methylmalonic acid level was found to be significantly elevated at 1350 nmol/L. With those findings, she was recommended to begin B12 injections. Her other medical illnesses include hypertension, hyperlipidemia, GERD, COPD, and degenerative arthritis. She has had previous total knee arthroplasty bilaterally. She has a history of smoking, but limited to a pack of cigarettes daily for 10 years starting at age 20. INTERIM HISTORY: She was seen for a follow-up visit on 12/09/2020. She had worsening weakness/fatigue despite the B12 injections and she again required PRBC transfusion with her hemoglobin back down to 5.6 g. She also reported having increasing joint pain, and with her sedimentation rate significantly elevated, Dr Dorantes opted to start her on steroid therapy with prednisone. She then underwent bone marrow aspiration/biopsy on 12/15/2020. The aspirate specimen was very limited, and the interpretation was largely based on the biopsy. The marrow did appear to be hypercellular, estimated at 50 to 80%. There was noted to be myeloid predominance with dismyelopoiesis and dysmegakaryopoiesis. Blasts were estimated at approximately 8%. Iron stores were noted to be increased. 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 The cytogenetic analysis is pending. 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 Dr. Dorantes had seen Ms Hooks for a follow-up on December 29, 2019 and have reviewed bone marrow biopsy reports with her. She had bone marrow aspiration biopsy on 12/15/2020. The marrow was hypocellular with blast estimated 8%. The FISH panel was evaluated for MDS and was positive for chromosome 5 deletion. Her IPSS???R calculated to 4.5, intermediate risk based on the CBC and the estimated 8% blasts in the bone marrow. Dr. Dorantes then recommended that she begin treatment with lenalidomide 10 mg daily. Ms. Hooks is here today for follow-up. She began her first cycle of lenalidomide 10 mg every other day on 01/07/2021. She was started out at 10 mg every other day as her baseline platelet count was 33,000 and her hemoglobin was 7.2. She did require 2 units of packed red blood cells on Monday. She is here today for follow-up after initiation of the lenalidomide. She states overall she feels really good. She was able to attend her great niece's wedding-which was actually at her house over the weekend. She states that she felt good she did tire but not as easily as she had prior to the blood. She denies any rash. She denies any mouth sores, sore throat or difficulty swallowing. She denies any fever or chills. She states that her bowels have been good she had one episode of diarrhea but thinks it was something that she ate. It did not require any antidiarrheal treatment. She states she is sleeping pretty good. Her appetite is fair. She denies any new concerns. She has had no rash. Her ECOG is 1 today and she is accompanied by her niece. Past Medical History: Chronic obstructive pulmonary disease Degenerative arthritis Gastroesophageal reflux disease Hyperlipidemia Hypertension Past Surgical History: Hemorrhoidectomy Total knee arthroplasty bilaterally Covid vaccine #1 moderna in 2020 Covid vaccine #2 moderna in 2020 Allergies: Nitrofurantoin Macrocrystal Medications: amLODIPine Besylate 1 Tablet (of 10 mg) Oral daily Atorvastatin Calcium 1 Tablet (of 20 mg) Oral daily B-12 (100 mcg) Tablet Oral daily Bystolic 1 Tablet (of 10 mg) Oral daily PriLOSEC 1 Capsule (of 20 mg) Capsule Delayed Release Oral daily ProAir HFA 2 Puff(s) (of 108 (90 base) mcg/act) Aerosol, solution Inhalation four times a day PRN Valsartan 1 Tablet (of 40 mg) Oral daily Family History: Father of stroke at age 87. Mother of heart disease at age 67. A brother with melanoma at age 87. He also had prostate cancer. A sister of lung cancer at age 72. Social History: Ms. Hooks is . Ms. Hooks no longer smokes. She has no history of drinking. She has a history of smoking up to a pack of cigarettes daily for 10 years, beginning at age 20. She does not drink alcohol. Review Of Symptoms: <See Above> Vital Signs: Performed on Jan 11, 2021 13:09 Height - 64.00 in Weight - 124.6 lbs (HIGH) BSA - 1.60 sq.m BMI - 21.39 Temperature - 98.5 F Pulse - 78 /min Respiration - 18 /min BP - 145/65 mm(hg) (HIGH) O2 Sat - 96 % Pain - 0 Fatigue - 6,1 - No physically strenuous activity, but ambulatory and able to carry out light or sedentary work (e.g. office work, light house work). (ECOG) Physical Examination: Constitutional Alert, oriented, no acute distress. Skin pale- pink, warm and dry. Head Normocephalic; atraumatic. Eyes Conjunctivae and sclerae are clear and without icterus. Pupils are reactive and equal. ENMT No oral exudates, ulcers, masses, thrush or mucositis. Oropharynx clear. Tongue normal. Hematologic/Lymphatic No petechiae or purpura. No tender or palpable lymph nodes in the cervical or supraclavicular areas. Respiratory Lungs are clear to auscultation without rhonchi or wheezing. Cardiovascular Regular rate and rhythm of heart without murmurs,clicks, gallops or rubs. Back/Spine Non-tender to palpation. Extremities No visible deformities, no cyanosis, clubbing or edema. Musculoskeletal No tenderness or swelling, normal range of motion without obvious weakness. Integumentary No rashes or lesions. Neurologic No sensory or motor deficits, normal cerebellar function, normal gait. Psychiatric Alert and oriented times three. Coherent speech. Verbalizes understanding of our discussions today. Laboratory:Test performed on Jan 11, 2021 11:40 Sodium 137 mmol/L Potassium 4.6 mmol/L Chloride 105 mmol/L CO2 23 mmol/L Anion Gap 13.6 BUN 24 mg/dL Creatinine 0.7 mg/dL Cr Clearance (Est) 54.33 mL/min Glucose 114 mg/dL Osmolality - Calculated 289 mOsm/kg Calcium 8.8 mg/dL Protein, Total 6.4 g/dL Albumin 3.8 g/dL Globulin 2.6 g/dL Bilirubin, Total 0.6 mg/dL ALT (SGPT) 15 U/L AST (SGOT) 16 U/L Alkaline Phosphatase 97 IU/L WBC 6.0 10 3/uL RBC 3.00 10 6/uL HGB 9.2 g/dL HCT 28.5 % MCV 95.0 fl MCH 30.7 pg MCHC 32.3 g/dL RDW 16.5 % Platelet Count 20 10 3/cmm Neutrophils 4.74 10 3/uL Lymphocytes 0.9 10 3/uL Monocytes 0.3 10 3/uL Eosinophils 0.0 10 3/uL Basophils 0.0 10 3/uL Neutrophil % 79.1 % Lymphocyte % 15.0 % Monocyte % 4.2 % Eosinophil % 0.2 % Basophils % 0.0 % NRBC % 0 % CBC Slide Review Slide Review Perform SLIDE REVIEW AGREES WITH AUTOMATED RESULTS Anti-D Test Not Performed ORDERING HOLD, HGB 9.3 Blood Type Test Not Performed ORDERING HOLD, HGB 9.3 Antibody Screen (Gel) Test Not Performed ORDERING HOLD, HGB 9.3 Test performed on Jan 07, 2021 09:31 Leukocyte Reduced RBC [id number] AP RCLR XM COMPATIBLE MPV 12.7 fL Test performed on Dec 28, 2020 11:40 LDH (Total) 522 U/L Erythropoietin 348.1 mIU/mL Test performed on Dec 15, 2020 11:13 Manual Lymphocytes 0.73 % Manual Monocytes 0.60 % Manual Eosinophils 0.01 % Test performed on Dec 09, 2020 16:30 Blood Culture R3 Test performed on Dec 09, 2020 16:20 Copper 168 mcg/dL Methylmalonic Acid 334 nmol/L Uric Acid 4.3 mg/dL Vitamin B12 559 pg/mL ESR (Sed Rate) > 120 mm/hr ABO & Rh Type # 2 AP Irradiated Red Blood Cells [id number] AP RCI XM COMPATIBLE Test performed on Nov 16, 2020 10:35 Homocysteine 16.81 umol/L Retic Count % 0.7 % Impression: 1. 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 She has associated pancytopenia with predominant anemia. 2. She had mild symptoms of peripheral neuropathy, and she was found to have evidence of B12 deficiency. 3. Hypertension. 4. Hyperlipidemia. 5. GERD. 6. She has CT evidence of COPD, though with fairly minimal smoking history. 7. Degenerative arthritis with previous total knee arthroplasty bilaterally. Plan/Problems Addressed at this Visit: 1. 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 Her laboratory studies from 11/16/2020 included a B12 level in the low normal range and a significantly elevated methylmalonic acid level, consistent with B12 deficiency. She also had a significantly elevated sed rate and 99 mm/h. With those findings, she was recommended to begin B12 injections. She then presented with worsening symptoms which include severe weakness/fatigue, daily fever and night sweating, and increased joint pain. She continued her B12 replacement, but at that point I also opted to have her start steroid therapy. She then underwent bone marrow aspiration/biopsy on 12/15/2020. The marrow was hypercellular with blasts estimated at 8%. The FISH panel for MDS was positive for chromosome 5q deletion. Based on her current CBC and estimated 8% blasts in the bone marrow, her IPSS-R calculates to 4.5, intermediate risk. A. Proceed with Prednisone 10 mg daily. B. Proceed with lenalidomide 10 mg every other day instead of 10 mg daily due to anemia and thrombocytopenia. We will request 5 mg tablets so that she may take 5 mg daily. C. She will need prophylaxis with Bactrim DS 1 tablet 3 times weekly; acyclovir 400 mg twice daily. Will not start on aspirin at this time given the thrombocytopenia. She will also need prochlorperazine 10 mg every 4 to 6 as needed nausea. D. Her labs from today were reviewed in detail and discussed with Mrs. Hooks and her niece and a copy was given to them. WBC 6.0, hemoglobin 9.2, platelets 20,000, ANC is 4740. Potassium 4.6 random glucose 114 creatinine 0.7 LFTs are normal. Her weight is good at 124.6 today. E. We again discussed her labs at length and the fact that if we do not treat with the lenalidomide, her counts will drop but if we do treat with the lenalidomide they will most likely drop as well. We discussed that she will receive supportive care with blood transfusions and platelets as needed and of course hydration if needed however she has had no signs of dehydration and is doing well overall thus far. F. She is advised to avoid grapefruit products with the lenalidomide. Again she will take it every other day for now. G. She had previously complained of one episode of rectal bleeding that was quite a lot . It sounds as if this may have been after a episode of slight constipation. I had ordered iFOB's on her 01/08/21 visit. I have not seen those resulted yet. She has not had any recurrent blood in her stool or after a bowel movement. H. She did not feel that she needed platelets today so we will check her labs again in 1 week with CBC, CMP and type and screen. I. Mrs. Hinton and her niece were encouraged to contact us in the interim should questions or problems arise. I. We will refill her Xanax 0.25 mg 1 twice daily #60 with 3 refills to [facility]. Signed By: Enedina Combs-, AOCNP Alejandro Dorantes MD <<Signature on File>>
[2021-01-18 12:18] LABS: Basophils % 0.1 %; Eosinophils % 0.1 %; Hematocrit 24.8 % (37.0-47.0); Hemoglobin 8.1 g/dL (11.5-15.3); Lymphocytes # 1.1 10^3/uL (0.8-4.8); Lymphocytes % 13.7 %; Mean Corpuscular HGB Conc 32.7 g/dL (30.0-36.0); Mean Corpuscular Hemoglobin 31.3 pg (28.0-34.0); Mean Corpuscular Volume 95.8 fl (81-99); Monocytes # 0.2 10^3/uL (0.2-0.9); Monocytes % 2.8 %; Neutrophils # 6.51 10^3/uL (1.8-7.7); Neutrophils % 82.4 %; Nucleated Red Blood Cells % 0 %; Red Blood Count 2.59 10^6/uL (4.1-5.3); Red Cell Distribution Width 15.9 % (12.1-15.1); White Blood Count 7.9 10^3/uL (4.0-10.0)
[2021-01-18 12:43] LABS: Alanine Aminotransferase 12 U/L (0-33); Albumin Level 3.7 g/dL (3.5-5.2); Alkaline Phosphatase 93 IU/L (35-105); Anion Gap 15.4 (5-19); Aspartate Amino Transferase 11 U/L (0-32); Blood Urea Nitrogen 21 mg/dL (8-23); Calcium 8.9 mg/dL (8.5-10.5); Carbon Dioxide 25 mmol/L (22-29); Chloride 101 mmol/L (98-107); Glucose 129 mg/dL (65-115); Osmolality Calculated 289 mOsm/kg (285-295); Potassium 4.4 mmol/L (3.5-5.1); Sodium 137 mmol/L (136-145); Total Bilirubin 1.4 mg/dL (0.15-1.2); Total Protein 6.7 g/dL (6.6-8.7)
[2021-01-18 13:22] LABS: Platelet Count 14 10^3/cmm (130-400); Slide Review Slide Review Perform
[2021-01-21 13:55] LABS: Basophils % 0.2 %; Eosinophils % 0.2 %; Hemoglobin 6.8 g/dL (11.5-15.3); Lymphocytes # 0.7 10^3/uL (0.8-4.8); Lymphocytes % 14.4 %; Mean Corpuscular HGB Conc 32.9 g/dL (30.0-36.0); Mean Corpuscular Hemoglobin 31.3 pg (28.0-34.0); Mean Corpuscular Volume 95.4 fl (81-99); Mean Platelet Volume 14.8 fL (7.4-10.4); Monocytes # 0.2 10^3/uL (0.2-0.9); Monocytes % 3.1 %; Neutrophils # 4.18 10^3/uL (1.8-7.7); Neutrophils % 81.1 %; Nucleated Red Blood Cells % 0 %; Red Blood Count 2.17 10^6/uL (4.1-5.3); Red Cell Distribution Width 15.6 % (12.1-15.1); White Blood Count 5.2 10^3/uL (4.0-10.0)
[2021-01-21 14:41] LABS: Slide Review Slide Review Perform
[2021-01-21 14:42] LABS: Hematocrit 20.7 % (37.0-47.0); Platelet Count 15 10^3/cmm (130-400)
[2021-01-22] VITALS (9 sets, daily range): BP systolic 98–117; BP diastolic 49–60; PULSE 64–79; RESP 16–18; TEMP 36.3–37.2; O2SAT 91–99
[2021-01-22] MEDS: sodium chloride 0.9% 250 ML 999 ML IV (08:22)
[2021-01-22] MEDS: acetaminophen 325 mg Tablet 650 MG PO (08:22)
[2021-01-22] MEDS: diphenhydrAMINE 25 mg Capsule PO (08:22)
[2021-01-22] MEDS: FUROsemide 10 mg/mL SDV 2mL 20 MG IV (10:13)
--- NOTE | 2021-01-30 12:43 | ONC FU_ITS ---
[facility] Patient Note Patient: Ria Hooks Unit #: [id number]: [id number] Dictated By: Enedina CombsDate of Visit: Jan 18, 2021 Onc MED Follow-Up/Prog Note Chief Complaint: Anemia/MDS. History of Present Illness: Ms Hooks is an 85-year-old woman with pancytopenia and predominant anemia. Somewhere in the range of late September or early October she had developed acute illness with fever, cough, sore throat, and sinusitis symptoms. She also was having some fatigue with that illness. She had then been seen in the office by Omaira Monzon on 11/10/2020. Her main complaint at that time was numbness in her lower legs and feet, which appeared to be due to peripheral neuropathy. At that point she was feeling exhausted. She was found to be severely anemic with her hemoglobin low at 6 g. On further evaluation in the emergency room, her CBC showed hemoglobin 6.1 g with hematocrit 19.5%. The red cell indices were macrocytic with MCV 112.1 and MCH 35.1. The white blood cell count was 4000 with the differential showing 73% neutrophils, 20% lymphocytes, 3% monocytes, and 1% eosinophils. The platelet count was mildly decreased at 113,000. Comprehensive metabolic profile was unremarkable. LDH was slightly elevated at 238/214 U/L. Her serum iron studies showed elevated transferrin saturation at 54.8% and the ferritin also was elevated at 431 ng/mL. B12 was borderline low at 237 pg/mL with folate normal at 10.7 ng/mL. TSH was normal 2.23 ???IU/mL. She was admitted to the hospital and she was transfused 2 units PRBC. She was able to be discharged home the following day. Dr Dorantes had seen her initially on 11/16/2020. Her repeat CBC showed hemoglobin increased to 9.1 g with white blood cell count 3700 and platelet count 98,000. The red cell indices were macrocytic with MCV 106 and MCH 33. Her sed rate was significantly elevated at 99 mm/h. Comprehensive metabolic profile was unremarkable except for slightly elevated alkaline phosphatase at 121/105 IU/L. LDH was mildly elevated at 251/214 U/L. B12 level is in the low normal range at 255 pg/mL. Her methylmalonic acid level was found to be significantly elevated at 1350 nmol/L. With those findings, she was recommended to begin B12 injections. Her other medical illnesses include hypertension, hyperlipidemia, GERD, COPD, and degenerative arthritis. She has had previous total knee arthroplasty bilaterally. She has a history of smoking, but limited to a pack of cigarettes daily for 10 years starting at age 20. INTERIM HISTORY: She was seen for a follow-up visit on 12/09/2020. She had worsening weakness/fatigue despite the B12 injections and she again required PRBC transfusion with her hemoglobin back down to 5.6 g. She also reported having increasing joint pain, and with her sedimentation rate significantly elevated, Dr Dorantes opted to start her on steroid therapy with prednisone. She then underwent bone marrow aspiration/biopsy on 12/15/2020. The aspirate specimen was very limited, and the interpretation was largely based on the biopsy. The marrow did appear to be hypercellular, estimated at 50 to 80%. There was noted to be myeloid predominance with dismyelopoiesis and dysmegakaryopoiesis. Blasts were estimated at approximately 8%. Iron stores were noted to be increased. 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 The cytogenetic analysis is pending. 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 Dr. Dorantes had seen Ms Hooks for a follow-up on December 29, 2019 and have reviewed bone marrow biopsy reports with her. She had bone marrow aspiration biopsy on 12/15/2020. The marrow was hypocellular with blast estimated 8%. The FISH panel was evaluated for MDS and was positive for chromosome 5 deletion. Her IPSS???R calculated to 4.5, intermediate risk based on the CBC and the estimated 8% blasts in the bone marrow. Dr. Dorantes then recommended that she begin treatment with lenalidomide 10 mg daily. Ms. Hooks is here today for follow-up. She began her first cycle of lenalidomide 10 mg every other day on 01/07/2021. She was started out at 10 mg every other day as her baseline platelet count was 33,000 and her hemoglobin was 7.2. She did require 2 units of packed red blood cells on 01/08/2021. She had significant improvement in her performance status after the transfusion services on 01/08/2021. She has remained on the lenalidomide 10 mg every other day. She is tolerating it well with the expected decrease in her blood counts. Ms. Hooks is here today for follow-up. This is her day 11 of cycle 1 lenalidomide. Her follow-up blood counts on 01/11/2021 reported hemoglobin 9.2 platelets were 20,000 and ANC was 4740. Her chemistry was unremarkable. She has no new concerns today. She states overall she continues to feel pretty good. She is noticed a little bit more fatigue but nothing that she feels is truly significant. She denies any chest pain or palpitations. She denies any anginal type chest pain. She has had some shortness of breath but states it is no worse than what is normal for her. She denies any orthopnea. She denies any cough or hemoptysis. She denies any nausea or vomiting. She states she has not had any recurrent rectal bleeding or blood after she has a bowel movement. She states she has not noticed any neuropathy symptoms. Her appetite is fair and her energy overall is good . ECOG is 1. Past Medical History: Chronic obstructive pulmonary disease Degenerative arthritis Gastroesophageal reflux disease Hyperlipidemia Hypertension Past Surgical History: Hemorrhoidectomy Total knee arthroplasty bilaterally Covid vaccine #1 moderna in 2020 Covid vaccine #2 moderna in 2020 Allergies: Nitrofurantoin Macrocrystal Medications: amLODIPine Besylate 1 Tablet (of 10 mg) Oral daily Atorvastatin Calcium 1 Tablet (of 20 mg) Oral daily B-12 (100 mcg) Tablet Oral daily Bystolic 1 Tablet (of 10 mg) Oral daily PriLOSEC 1 Capsule (of 20 mg) Capsule Delayed Release Oral daily ProAir HFA 2 Puff(s) (of 108 (90 base) mcg/act) Aerosol, solution Inhalation four times a day PRN Valsartan 1 Tablet (of 40 mg) Oral daily Family History: Father of stroke at age 87. Mother of heart disease at age 67. A brother with melanoma at age 87. He also had prostate cancer. A sister of lung cancer at age 72. Social History: Ms. Hooks is . Ms. Hooks no longer smokes. She has no history of drinking. She has a history of smoking up to a pack of cigarettes daily for 10 years, beginning at age 20. She does not drink alcohol. Review Of Symptoms: <See Above> Vital Signs: Performed on Jan 18, 2021 13:44 Height - 64.00 in Weight - 123.4 lbs (LOW) BSA - 1.59 sq.m BMI - 21.18 Temperature - 98.6 F Pulse - 95 /min Respiration - 18 /min BP - 126/64 mm(hg) O2 Sat - 94 % (LOW) Pain - 5 Fatigue - 0,1 - No physically strenuous activity, but ambulatory and able to carry out light or sedentary work (e.g. office work, light house work). (ECOG) Physical Examination: Constitutional Alert, oriented, no acute distress. Skin pale- pink, warm and dry. Head Normocephalic; atraumatic. Eyes Conjunctivae and sclerae are clear and without icterus. Pupils are reactive and equal. Hematologic/Lymphatic No petechiae or purpura. No tender or palpable lymph nodes in the cervical or supraclavicular areas. Respiratory Lungs are clear to auscultation without rhonchi or wheezing. Cardiovascular Regular rate and rhythm of heart without murmurs,clicks, gallops or rubs. Back/Spine Non-tender to palpation. Extremities No visible deformities, no cyanosis, clubbing or edema. Musculoskeletal No tenderness or swelling, normal range of motion without obvious weakness. Integumentary No rashes or lesions. Neurologic No sensory or motor deficits, normal cerebellar function, normal gait. Psychiatric Alert and oriented times three. Coherent speech. Verbalizes understanding of our discussions today. Laboratory:Test performed on Jan 18, 2021 11:26 Sodium 137 mmol/L Potassium 4.4 mmol/L Chloride 101 mmol/L CO2 25 mmol/L Anion Gap 15.4 BUN 21 mg/dL Creatinine 0.9 mg/dL Cr Clearance (Est) 41.85 mL/min Glucose 129 mg/dL Osmolality - Calculated 289 mOsm/kg Calcium 8.9 mg/dL Protein, Total 6.7 g/dL Albumin 3.7 g/dL Globulin 3.0 g/dL Bilirubin, Total 1.4 mg/dL ALT (SGPT) 12 U/L AST (SGOT) 11 U/L Alkaline Phosphatase 93 IU/L WBC 7.9 10 3/uL RBC 2.59 10 6/uL HGB 8.1 g/dL HCT 24.8 % MCV 95.8 fl MCH 31.3 pg MCHC 32.7 g/dL RDW 15.9 % Platelet Count 14 10 3/cmm Neutrophils 6.51 10 3/uL Lymphocytes 1.1 10 3/uL Monocytes 0.2 10 3/uL Eosinophils 0.0 10 3/uL Basophils 0.0 10 3/uL Neutrophil % 82.4 % Lymphocyte % 13.7 % Monocyte % 2.8 % Eosinophil % 0.1 % Basophils % 0.1 % NRBC % 0 % CBC Slide Review Slide Review Perform SLIDE REVIEW AGREES WITH AUTOMATED RESULTS Test performed on Jan 11, 2021 11:40 Anti-D Test Not Performed ORDERING HOLD, HGB 9.3 Blood Type Test Not Performed ORDERING HOLD, HGB 9.3 Antibody Screen (Gel) Test Not Performed ORDERING HOLD, HGB 9.3 Test performed on Jan 07, 2021 09:31 Leukocyte Reduced RBC [id number] AP RCLR XM COMPATIBLE MPV 12.7 fL Test performed on Dec 28, 2020 11:40 LDH (Total) 522 U/L Erythropoietin 348.1 mIU/mL Test performed on Dec 15, 2020 11:13 Manual Lymphocytes 0.73 % Manual Monocytes 0.60 % Manual Eosinophils 0.01 % Test performed on Dec 09, 2020 16:30 Blood Culture R3 Test performed on Dec 09, 2020 16:20 Copper 168 mcg/dL Methylmalonic Acid 334 nmol/L Uric Acid 4.3 mg/dL Vitamin B12 559 pg/mL ESR (Sed Rate) > 120 mm/hr ABO & Rh Type # 2 AP Irradiated Red Blood Cells [id number] AP RCI XM COMPATIBLE Test performed on Nov 16, 2020 10:35 Homocysteine 16.81 umol/L Retic Count % 0.7 % Impression: 1. 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 She has associated pancytopenia with predominant anemia. 2. She had mild symptoms of peripheral neuropathy, and she was found to have evidence of B12 deficiency. 3. Hypertension. 4. Hyperlipidemia. 5. GERD. 6. She has CT evidence of COPD, though with fairly minimal smoking history. 7. Degenerative arthritis with previous total knee arthroplasty bilaterally. Plan/Problems Addressed at this Visit: 1. 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 Her laboratory studies from 11/16/2020 included a B12 level in the low normal range and a significantly elevated methylmalonic acid level, consistent with B12 deficiency. She also had a significantly elevated sed rate and 99 mm/h. With those findings, she was recommended to begin B12 injections. She then presented with worsening symptoms which include severe weakness/fatigue, daily fever and night sweating, and increased joint pain. She continued her B12 replacement, but at that point I also opted to have her start steroid therapy. She then underwent bone marrow aspiration/biopsy on 12/15/2020. The marrow was hypercellular with blasts estimated at 8%. The FISH panel for MDS was positive for chromosome 5q deletion. Based on her current CBC and estimated 8% blasts in the bone marrow, her IPSS-R calculates to 4.5, intermediate risk. A. Proceed with Prednisone 10 mg daily. B. Proceed with lenalidomide 5 mg daily instead of her most recent dose of 10 mg every other day DUE TO anemia and thrombocytopenia. We have sent in a prescription for the 5 mg tablets and she may start those as soon as she receives them at home. C. She will need to continue prophylaxis with Bactrim DS 1 tablet 3 times weekly; acyclovir 400 mg twice daily. Will not start on aspirin at this time given the thrombocytopenia. She will also need prochlorperazine 10 mg every 4 to 6 as needed nausea. D. Her labs from today were reviewed in detail and discussed with Mrs. Hooks and her niece and a copy was given to them. WBC 7.9, hemoglobin 8.1, platelets 14,000 ANC is 6510. Potassium 4.4 creatinine 0.9 LFTs are normal. Weight is stable at 123.4. E. We again discussed her labs at length and the fact that if we do not treat with the lenalidomide, her counts will drop but if we do treat with the lenalidomide they will most likely drop as well. We discussed that she will receive supportive care with blood transfusions and platelets as needed and of course hydration if needed however she has had no signs of dehydration and is doing well overall thus far. F. She is advised to avoid grapefruit products with the lenalidomide. A G. She had previously complained of one episode of rectal bleeding that was quite a lot . It sounds as if this may have been after a episode of slight constipation. I had ordered iFOB's on her 01/08/21 visit. I have not seen those resulted yet. She has not had any recurrent blood in her stool or after a bowel movement. H. She did not feel that she needed platelets or PRBCs today so we will check her labs again On January 21 with CBC, CMP and type and screen. I. We will then check her CBC and type a next again in 1 week. She will be due back in 2 weeks for follow-up with Dr. Dorantes at which time she will have CBC CMP LDH as well as a blood bank hold for screening purposes if she should need blood. J. Mrs. Hooks and her niece were encouraged to contact us in the interim should questions or problems arise. Signed By: Enedina Combs-, AOCNP Alejandro Dorantes MD <<Signature on File>>
== END 2021-01-24 23:59 | disposition home or self-care (01) ==
LOC: ONCMED 07:59
PROVIDERS: Nurse Practitioner; PCP Family Medicine; Visit Provider Internal Medicine Medical Oncology
DX: D46.C Myelodysplastic syndrome with isolated del(5q) chromosomal abnormality (principal); D61.818 Other pancytopenia; G62.9 Polyneuropathy, unspecified; D51.9 Vitamin B12 deficiency anemia, unspecified; I10 Essential (primary) hypertension; E78.5 Hyperlipidemia, unspecified; K21.9 Gastro-esophageal reflux disease without esophagitis; J44.9 Chronic obstructive pulmonary disease, unspecified; F17.210 Nicotine dependence, cigarettes, uncomplicated; Z96.651 Presence of right artificial knee joint; Z96.652 Presence of left artificial knee joint
CPT/HCPCS: 36415; 36430; 80053; 85025; 86850; 86900; 86920; 99214; 99215; J1940; J7050; P9016; P9040

== ENCOUNTER 2021-02-23 06:30 | Outpatient (RCR) | payer MEDICARE, OTHER, SELFPAY ==
[2021-01-25 15:00] LABS: Basophils % 0.1 %; Hematocrit 28.5 % (37.0-47.0); Hemoglobin 9.5 g/dL (11.5-15.3); Lymphocytes # 0.8 10^3/uL (0.8-4.8); Lymphocytes % 9.4 %; Mean Corpuscular HGB Conc 33.3 g/dL (30.0-36.0); Mean Corpuscular Hemoglobin 30.6 pg (28.0-34.0); Mean Corpuscular Volume 91.9 fl (81-99); Monocytes # 0.5 10^3/uL (0.2-0.9); Neutrophils # 6.91 10^3/uL (1.8-7.7); Neutrophils % 83.4 %; Nucleated Red Blood Cells % 0 %; Red Cell Distribution Width 15.7 % (12.1-15.1); White Blood Count 8.3 10^3/uL (4.0-10.0)
[2021-01-25 15:23] LABS: Slide Review Slide Review Perform
[2021-01-25 15:24] LABS: Platelet Count 28 10^3/cmm (130-400)
[2021-01-28 10:13] LABS: Basophils % 0.2 %; Eosinophils % 0.2 %; Hematocrit 27.4 % (37.0-47.0); Hemoglobin 8.9 g/dL (11.5-15.3); Lymphocytes # 0.7 10^3/uL (0.8-4.8); Lymphocytes % 13.1 %; Mean Corpuscular HGB Conc 32.5 g/dL (30.0-36.0); Mean Corpuscular Hemoglobin 30.1 pg (28.0-34.0); Mean Corpuscular Volume 92.6 fl (81-99); Mean Platelet Volume 13.8 fL (7.4-10.4); Monocytes # 0.6 10^3/uL (0.2-0.9); Monocytes % 10.3 %; Neutrophils # 4.23 10^3/uL (1.8-7.7); Neutrophils % 75.1 %; Nucleated Red Blood Cells % 0 %; Platelet Count 31 10^3/cmm (130-400); Red Blood Count 2.96 10^6/uL (4.1-5.3); Red Cell Distribution Width 15.3 % (12.1-15.1); White Blood Count 5.6 10^3/uL (4.0-10.0)
[2021-01-28 10:34] LABS: Slide Review Slide Review Perform
[2021-02-02 09:13] LABS: Basophils % 0.1 %; Eosinophils % 0.4 %; Hematocrit 26.4 % (37.0-47.0); Hemoglobin 8.6 g/dL (11.5-15.3); Lymphocytes # 1.1 10^3/uL (0.8-4.8); Lymphocytes % 12.8 %; Mean Corpuscular HGB Conc 32.6 g/dL (30.0-36.0); Mean Corpuscular Hemoglobin 30.6 pg (28.0-34.0); Mean Platelet Volume 13.2 fL (7.4-10.4); Monocytes # 1.5 10^3/uL (0.2-0.9); Neutrophils # 6.08 10^3/uL (1.8-7.7); Neutrophils % 68.4 %; Nucleated Red Blood Cells % 0 %; Platelet Count 39 10^3/cmm (130-400); Red Blood Count 2.81 10^6/uL (4.1-5.3); Red Cell Distribution Width 15.3 % (12.1-15.1); White Blood Count 8.9 10^3/uL (4.0-10.0)
[2021-02-02 09:29] LABS: Slide Review Slide Review Perform
[2021-02-02 09:30] LABS: Alanine Aminotransferase 16 U/L (0-33); Albumin Level 3.7 g/dL (3.5-5.2); Alkaline Phosphatase 74 IU/L (35-105); Anion Gap 14.6 (5-19); Aspartate Amino Transferase 12 U/L (0-32); Blood Urea Nitrogen 27 mg/dL (8-23); Calcium 9.1 mg/dL (8.5-10.5); Carbon Dioxide 21 mmol/L (22-29); Chloride 102 mmol/L (98-107); Globulin 2.9 g/dL (1.3-4.6); Glucose 102 mg/dL (65-115); Lactate Dehydrogenase 287 U/L (135-214); Osmolality Calculated 281 mOsm/kg (285-295); Potassium 4.6 mmol/L (3.5-5.1); Sodium 133 mmol/L (136-145); Total Bilirubin 0.2 mg/dL (0.15-1.2); Total Protein 6.6 g/dL (6.6-8.7)
--- NOTE | 2021-02-02 17:15 | ONC FU_ITS ---
Dr. Dorantes Patient Follow-Up Note Patient: Ria Hooks Unit #: [id number]: [id number] Dicatated By: Alejandro Dorantes M.D.Date of Visit:Feb 02, 2021 Onc Med Follow-up/Prog Note Chief Complaint: Anemia. History of Present Illness: This is an 85-year-old woman with pancytopenia and predominant anemia. Somewhere in the range of late September or early October she had developed acute illness with fever, cough, sore throat, and sinusitis symptoms. She also was having some fatigue with that illness. She had then been seen in the office by Omaira Monzon on 11/10/2020. Her main complaint at that time was numbness in her lower legs and feet, which appeared to be due to peripheral neuropathy. At that point she was feeling exhausted. She was found to be severely anemic with her hemoglobin low at 6 g. On further evaluation in the emergency room, her CBC showed hemoglobin 6.1 g with hematocrit 19.5%. The red cell indices were macrocytic with MCV 112.1 and MCH 35.1. The white blood cell count was 4000 with the differential showing 73% neutrophils, 20% lymphocytes, 3% monocytes, and 1% eosinophils. The platelet count was mildly decreased at 113,000. Comprehensive metabolic profile was unremarkable. LDH was slightly elevated at 238/214 U/L. Her serum iron studies showed elevated transferrin saturation at 54.8% and the ferritin also was elevated at 431 ng/mL. B12 was borderline low at 237 pg/mL with folate normal at 10.7 ng/mL. TSH was normal 2.23 ???IU/mL. She was admitted to the hospital and she was transfused 2 units PRBC. She was able to be discharged home the following day. I had seen her initially on 11/16/2020. Her repeat CBC showed hemoglobin increased to 9.1 g with white blood cell count 3700 and platelet count 98,000. The red cell indices were macrocytic with MCV 106 and MCH 33. Her sed rate was significantly elevated at 99 mm/h. Comprehensive metabolic profile was unremarkable except for slightly elevated alkaline phosphatase at 121/105 IU/L. LDH was mildly elevated at 251/214 U/L. B12 level is in the low normal range at 255 pg/mL. Her methylmalonic acid level was found to be significantly elevated at 1350 nmol/L. With those findings, she was recommended to begin B12 injections. Her other medical illnesses include hypertension, hyperlipidemia, GERD, COPD, and degenerative arthritis. She has had previous total knee arthroplasty bilaterally. She has a history of smoking, but limited to a pack of cigarettes daily for 10 years starting at age 20. INTERIM HISTORY: She was seen for a follow-up visit on 12/09/2020. She had worsening weakness/fatigue despite the B12 injections and she again required PRBC transfusion with her hemoglobin back down to 5.6 g. She also reported having increasing joint pain, and with her sedimentation rate significantly elevated I opted to start her on steroid therapy with prednisone. She then underwent bone marrow aspiration/biopsy on 12/15/2020. The aspirate specimen was very limited, and the interpretation was largely based on the biopsy. The marrow did appear to be hypercellular, estimated at 50 to 80%. There was noted to be myeloid predominance with dismyelopoiesis and dysmegakaryopoiesis. Blasts were estimated at approximately 8%. Iron stores were noted to be increased. 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 With that finding, she was recommended to begin a trial of therapy with lenalidomide 10 mg daily for 28 days. Aspirin prophylaxis was omitted due to thrombocytopenia, platelet count 33,000. Her baseline hemoglobin was 7.2 g with white blood cell count 9700. Her repeat CBC 4 days later did show an increase in hemoglobin to 9.2 g and her white blood cell count remained adequate at 6000. Her platelet count, though, dropped to 20,000. She continued lenalidomide 10 mg every other day and by the following week her platelet count was down to 14,000. She then stopped treatment. She required PRBC transfusion on 01/21/2021 with her hemoglobin decreased to 6.8 g. She did show gradual recovery of her platelet count. She had subsequently presented with pain and redness in both eyes. She was seen by Dr. Pritchard, that did improve with topical therapy. She is seen for a follow-up visit. She says she is feeling pretty good. She is still able to do some housework. ECOG score is 1. Appetite has been okay. She has not had fever. She has been waking up at night with sweating. Her eyes have been getting better, she says she feels like they are going to start getting red again. She does have a follow-up with Dr. Pritchard on Monday. She has not had mouth sores. She has no shortness of breath, cough, or chest pain. She has no GI/ complaints other than some mild constipation. She has no significant joint or bone pain. She does not complain of headache. She does have some dysequilibrium. She has no numbness/paresthesia or other focal neurologic symptoms. She has some bruising, but not a lot. Medications: amLODIPine Besylate 1 Tablet (of 10 mg) Oral daily, Atorvastatin Calcium 1 Tablet (of 20 mg) Oral daily, B-12 (100 mcg) Tablet Oral daily, Bystolic 1 Tablet (of 10 mg) Oral daily, predniSONE 1 Tablet (of 10 ) Oral b.i.d., PriLOSEC 1 Capsule (of 20 mg) Capsule Delayed Release Oral daily, ProAir HFA 2 Puff(s) (of 108 (90 base) mcg/act) Aerosol, solution Inhalation four times a day PRN, Sulfamethoxazole-Trimethoprim 1 Tablet (of 800-160 mg) Oral b.i.d., Valsartan 1 Tablet (of 40 mg) Oral daily Allergies: Nitrofurantoin Macrocrystal Vital Signs: Performed on Feb 02, 2021 12:35 Height - 64.00 in Weight - 127 lbs (HIGH) BSA - 1.61 sq.m BMI - 21.80 Temperature - 97.7 F (LOW) Pulse - 70 /min Respiration - 18 /min BP - 135/59 mm(hg) O2 Sat - 96 % Pain - 0 Fatigue - 8 Physical Examination: Constitutional - She looks a little frail generally, Eyes - Sclerae nonicteric. Conjunctivae clear, ENMT - No lesions noted in the oral cavity, Hematologic/Lymphatic - No cervical, clavicular, or axillary adenopathy, Respiratory - Lungs are clear with good air movement bilaterally, Cardiovascular - Heart rhythm is regular. There is a II/ systolic murmur. There is no gallop or rub noted, Abdomen - Soft. Liver and spleen are not enlarged. There is no abdominal mass or ascites noted and there is no inguinal adenopathy, Extremities - Mild edema, Neurologic - No focal neurologic deficits noted. Lab/Imaging: Test performed on Feb 02, 2021 08:55 LDH (Total) 287 U/L Sodium 133 mmol/L Potassium 4.6 mmol/L Chloride 102 mmol/L CO2 21 mmol/L Anion Gap 14.6 BUN 27 mg/dL Creatinine 0.9 mg/dL Cr Clearance (Est) 43.07 mL/min Glucose 102 mg/dL Osmolality - Calculated 281 mOsm/kg Calcium 9.1 mg/dL Protein, Total 6.6 g/dL Albumin 3.7 g/dL Globulin 2.9 g/dL Bilirubin, Total 0.2 mg/dL ALT (SGPT) 16 U/L AST (SGOT) 12 U/L Alkaline Phosphatase 74 IU/L WBC 8.9 10 3/uL RBC 2.81 10 6/uL HGB 8.6 g/dL HCT 26.4 % MCV 94.0 fl MCH 30.6 pg MCHC 32.6 g/dL RDW 15.3 % Platelet Count 39 10 3/cmm MPV 13.2 fL Neutrophils 6.08 10 3/uL Lymphocytes 1.1 10 3/uL Monocytes 1.5 10 3/uL Eosinophils 0.0 10 3/uL Basophils 0.0 10 3/uL Neutrophil % 68.4 % Lymphocyte % 12.8 % Monocyte % 17.0 % Eosinophil % 0.4 % Basophils % 0.1 % NRBC % 0 % CBC Slide Review Slide Review Perform SLIDE REVIEW AGREES WITH AUTOMATED RESULTS ST Problem List: 1. 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 She has associated pancytopenia with predominant anemia. 2. She had mild symptoms of peripheral neuropathy, and she was found to have evidence of B12 deficiency. 3. Hypertension. 4. Hyperlipidemia. 5. GERD. 6. She has CT evidence of COPD, though with fairly minimal smoking history. 7. Degenerative arthritis with previous total knee arthroplasty bilaterally. Problems Addressed with this Encounter and Plan: Patient with pancytopenia with predominant macrocytic anemia. Her laboratory studies from 11/16/2020 included a B12 level in the low normal range and a significantly elevated methylmalonic acid level, consistent with B12 deficiency. She also had a significantly elevated sed rate and 99 mm/h. With those findings, she was recommended to begin B12 injections. She then presented with worsening symptoms which include severe weakness/fatigue, daily fever and night sweating, and increased joint pain. She continued her B12 replacement, but at that point I also opted to have her start steroid therapy. She then underwent bone marrow aspiration/biopsy on 12/15/2020. The marrow was hypercellular with blasts estimated at 8%. The FISH panel for MDS was positive for chromosome 5q deletion. Based on her current CBC and estimated 8% blasts in the bone marrow, her IPSS-R calculates to 4.5, intermediate risk. With those findings, she was recommended to begin a trial of therapy with lenalidomide 10 mg daily for 28 days each month. Aspirin prophylaxis was omitted due to thrombocytopenia, baseline platelet count 33,000. Treatment started on 01/07/2021. After 4 days her repeat CBC showed a decrease in the platelet count to 20,000, and at that point the lenalidomide was decreased to every other day. After 1 week there was further decrease in the platelet count to 14,000, at that point the lenalidomide was stopped. She had no bleeding complications. She did require PRBC transfusion on 01/21/2021 with her hemoglobin decreased to 6.8 g. She has since then had recovery of her platelet count to 39,000. Hemoglobin remains adequate at 8.6 g with white blood cell count normal at 8900. She is still feeling reasonably good from a general standpoint. She will now begin a second cycle of lenalidomide with the dosage reduced to 5 mg daily. For now she will remain off aspirin prophylaxis. Blood counts will be monitored twice weekly. She will be scheduled for a follow-up visit in 4 weeks. Signed By: Alejandro Dorantes M.D. <<Signature on File>>
[2021-02-04 11:27] LABS: Basophils % 0.1 %; Eosinophils % 0.4 %; Hematocrit 25.2 % (37.0-47.0); Hemoglobin 8.3 g/dL (11.5-15.3); Lymphocytes # 0.9 10^3/uL (0.8-4.8); Lymphocytes % 11.5 %; Mean Corpuscular HGB Conc 32.9 g/dL (30.0-36.0); Mean Corpuscular Hemoglobin 30.1 pg (28.0-34.0); Mean Corpuscular Volume 91.3 fl (81-99); Mean Platelet Volume 12.8 fL (7.4-10.4); Monocytes % 12.9 %; Neutrophils # 5.71 10^3/uL (1.8-7.7); Neutrophils % 73.8 %; Nucleated Red Blood Cells % 0 %; Platelet Count 31 10^3/cmm (130-400); Red Blood Count 2.76 10^6/uL (4.1-5.3); Red Cell Distribution Width 15.2 % (12.1-15.1); White Blood Count 7.7 10^3/uL (4.0-10.0)
[2021-02-08 15:26] LABS: Eosinophils % 0.6 %; Hematocrit 25.4 % (37.0-47.0); Hemoglobin 8.2 g/dL (11.5-15.3); Lymphocytes # 1.1 10^3/uL (0.8-4.8); Lymphocytes % 21.6 %; Mean Corpuscular HGB Conc 32.3 g/dL (30.0-36.0); Mean Corpuscular Hemoglobin 29.9 pg (28.0-34.0); Mean Corpuscular Volume 92.7 fl (81-99); Monocytes # 0.3 10^3/uL (0.2-0.9); Monocytes % 6.3 %; Neutrophils # 3.74 10^3/uL (1.8-7.7); Neutrophils % 70.7 %; Nucleated Red Blood Cells % 0 %; Red Blood Count 2.74 10^6/uL (4.1-5.3); Red Cell Distribution Width 14.8 % (12.1-15.1); White Blood Count 5.3 10^3/uL (4.0-10.0)
[2021-02-08 16:07] LABS: Slide Review Slide Review Perform
[2021-02-08 16:12] LABS: Platelet Count 29 10^3/cmm (130-400)
[2021-02-11 14:30] LABS: Basophils % 0.2 %; Eosinophils % 0.5 %; Hemoglobin 6.9 g/dL (11.5-15.3); Lymphocytes # 0.5 10^3/uL (0.8-4.8); Mean Corpuscular HGB Conc 33.5 g/dL (30.0-36.0); Mean Corpuscular Hemoglobin 30.5 pg (28.0-34.0); Mean Corpuscular Volume 91.2 fl (81-99); Monocytes # 0.2 10^3/uL (0.2-0.9); Monocytes % 3.3 %; Neutrophils # 5.22 10^3/uL (1.8-7.7); Neutrophils % 86.5 %; Nucleated Red Blood Cells % 0 %; Red Blood Count 2.26 10^6/uL (4.1-5.3); Red Cell Distribution Width 14.6 % (12.1-15.1)
[2021-02-11 14:52] LABS: Hematocrit 20.6 % (37.0-47.0); Platelet Count 19 10^3/cmm (130-400)
[2021-02-11 14:54] LABS: Slide Review Slide Review Perform
[2021-02-12] VITALS (8 sets, daily range): BP systolic 121–143; BP diastolic 48–71; PULSE 61–68; RESP 18; TEMP 37.2–37.4; O2SAT 97–100
[2021-02-12] MEDS: diphenhydrAMINE 25 mg Capsule PO (08:30)
[2021-02-12] MEDS: acetaminophen 325 mg Tablet 650 MG PO (08:30)
[2021-02-12] MEDS: sodium chloride 0.9% 250 ML 999 ML IV (08:30)
[2021-02-12] MEDS: FUROsemide 10 mg/mL SDV 2mL 20 MG IV (11:00)
[2021-02-15 10:40] LABS: Eosinophils % 0.2 %; Hematocrit 31.4 % (37.0-47.0); Hemoglobin 10.7 g/dL (11.5-15.3); Lymphocytes # 0.6 10^3/uL (0.8-4.8); Lymphocytes % 9.2 %; Mean Corpuscular HGB Conc 34.1 g/dL (30.0-36.0); Mean Corpuscular Hemoglobin 30.9 pg (28.0-34.0); Mean Corpuscular Volume 90.8 fl (81-99); Mean Platelet Volume 11.9 fL (7.4-10.4); Monocytes # 0.2 10^3/uL (0.2-0.9); Monocytes % 3.1 %; Neutrophils # 5.35 10^3/uL (1.8-7.7); Neutrophils % 86.7 %; Nucleated Red Blood Cells % 0 %; Red Blood Count 3.46 10^6/uL (4.1-5.3); White Blood Count 6.2 10^3/uL (4.0-10.0)
[2021-02-15 10:47] LABS: Platelet Count 12 10^3/cmm (130-400)
[2021-02-23 11:13] LABS: Hematocrit 25.8 % (37.0-47.0); Hemoglobin 8.8 g/dL (11.5-15.3); Lymphocytes # 0.4 10^3/uL (0.8-4.8); Lymphocytes % 15.6 %; Mean Corpuscular HGB Conc 34.1 g/dL (30.0-36.0); Mean Corpuscular Hemoglobin 30.9 pg (28.0-34.0); Mean Corpuscular Volume 90.5 fl (81-99); Mean Platelet Volume 14.2 fL (7.4-10.4); Monocytes # 0.6 10^3/uL (0.2-0.9); Monocytes % 23.2 %; Nucleated Red Blood Cells % 0 %; Platelet Count 37 10^3/cmm (130-400); Red Blood Count 2.85 10^6/uL (4.1-5.3); White Blood Count 2.5 10^3/uL (4.0-10.0)
[2021-02-23 11:55] LABS: Slide Review Slide Review Perform
--- NOTE | 2021-02-27 10:27 | ONC FU_ITS ---
Dr. Dorantes Patient Follow-Up Note Patient: Ria Hooks Unit #: [id number]: 1935 Dicatated By: Alejandro Dorantes M.D.Date of Visit:Feb 23, 2021 Onc Med Follow-up/Prog Note Chief Complaint: Anemia. History of Present Illness: This is an 85-year-old woman with pancytopenia and predominant anemia. Somewhere in the range of late September or early October she had developed acute illness with fever, cough, sore throat, and sinusitis symptoms. She also was having some fatigue with that illness. She had then been seen in the office by Omaira Monzon on 11/10/2020. Her main complaint at that time was numbness in her lower legs and feet, which appeared to be due to peripheral neuropathy. At that point she was feeling exhausted. She was found to be severely anemic with her hemoglobin low at 6 g. On further evaluation in the emergency room, her CBC showed hemoglobin 6.1 g with hematocrit 19.5%. The red cell indices were macrocytic with MCV 112.1 and MCH 35.1. The white blood cell count was 4000 with the differential showing 73% neutrophils, 20% lymphocytes, 3% monocytes, and 1% eosinophils. The platelet count was mildly decreased at 113,000. Comprehensive metabolic profile was unremarkable. LDH was slightly elevated at 238/214 U/L. Her serum iron studies showed elevated transferrin saturation at 54.8% and the ferritin also was elevated at 431 ng/mL. B12 was borderline low at 237 pg/mL with folate normal at 10.7 ng/mL. TSH was normal 2.23 ???IU/mL. She was admitted to the hospital and she was transfused 2 units PRBC. She was able to be discharged home the following day. I had seen her initially on 11/16/2020. Her repeat CBC showed hemoglobin increased to 9.1 g with white blood cell count 3700 and platelet count 98,000. The red cell indices were macrocytic with MCV 106 and MCH 33. Her sed rate was significantly elevated at 99 mm/h. Comprehensive metabolic profile was unremarkable except for slightly elevated alkaline phosphatase at 121/105 IU/L. LDH was mildly elevated at 251/214 U/L. B12 level is in the low normal range at 255 pg/mL. Her methylmalonic acid level was found to be significantly elevated at 1350 nmol/L. With those findings, she was recommended to begin B12 injections. Her other medical illnesses include hypertension, hyperlipidemia, GERD, COPD, and degenerative arthritis. She has had previous total knee arthroplasty bilaterally. She has a history of smoking, but limited to a pack of cigarettes daily for 10 years starting at age 20. INTERIM HISTORY: She was seen for a follow-up visit on 12/09/2020. She had worsening weakness/fatigue despite the B12 injections and she again required PRBC transfusion with her hemoglobin back down to 5.6 g. She also reported having increasing joint pain, and with her sedimentation rate significantly elevated I opted to start her on steroid therapy with prednisone. She then underwent bone marrow aspiration/biopsy on 12/15/2020. The aspirate specimen was very limited, and the interpretation was largely based on the biopsy. The marrow did appear to be hypercellular, estimated at 50 to 80%. There was noted to be myeloid predominance with dismyelopoiesis and dysmegakaryopoiesis. Blasts were estimated at approximately 8%. Iron stores were noted to be increased. 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 With that finding, she was recommended to begin a trial of therapy with lenalidomide 10 mg daily for 28 days. Aspirin prophylaxis was omitted due to thrombocytopenia, platelet count 33,000. Her baseline hemoglobin was 7.2 g with white blood cell count 9700. Her repeat CBC 4 days later did show an increase in hemoglobin to 9.2 g and her white blood cell count remained adequate at 6000. Her platelet count, though, dropped to 20,000. She continued lenalidomide 10 mg every other day and by the following week her platelet count was down to 14,000. She then stopped treatment. She required PRBC transfusion on 01/21/2021 with her hemoglobin decreased to 6.8 g. She did show gradual recovery of her platelet count. She had subsequently presented with pain and redness in both eyes. She was seen by Dr. Pritchard, that did improve with topical therapy. As of her follow-up visit on 02/02/2021 her blood counts were showing some recovery and she began a 2nd cycle of lenalidomide with the dosage reduced to 5 mg daily. As of 02/11/2021 her treatment was put on hold with herpetic count back down to 19,000. At that point she also required PRBC transfusion, her hemoglobin having dropped to 6.9 g. She is seen for a follow-up visit. She has been feeling pretty good. She says she feels a little shaky and she does tend to stagger when she walks. She says she fell flat on her face 2 weeks ago. She is still able to do light work, though. ECOG score is 1. Appetite is pretty good. She has not had fever. She is still having regular night sweating. She has not had sore mouth or throat. She does not complain of cough. She has some mild exertional dyspnea. She has not been having chest pain. She does not complain of nausea, but she tends to wake up feeling like she needs to burp. She has some constipation, but bowel function has been pretty good. She has no complaints. She has no significant joint or bone pain. She does not complain of headache, and she has no focal neurologic symptoms. Medications: Acyclovir 1 Tablet (of 400 mg) Oral b.i.d., ALPRAZolam 1 Tablet (of 0.25 mg) Oral b.i.d. PRN, amLODIPine Besylate 1 Tablet (of 10 mg) Oral daily, Atorvastatin Calcium 1 Tablet (of 20 mg) Oral daily, B-12 (100 mcg) Tablet Oral daily, Bystolic 1 Tablet (of 10 mg) Oral daily, predniSONE 2 Tablet (of 10 ) Oral b.i.d., PriLOSEC 1 Capsule (of 20 mg) Capsule Delayed Release Oral daily, ProAir HFA 2 Puff(s) (of 108 (90 base) mcg/act) Aerosol, solution Inhalation four times a day PRN, Sulfamethoxazole-Trimethoprim 1 Tablet (of 800-160 mg) Oral t.i.d., Valsartan 1 Tablet (of 40 mg) Oral daily Allergies: Nitrofurantoin Macrocrystal Vital Signs: Performed on Feb 23, 2021 14:39 Height - 64.00 in Weight - 128.6 lbs (HIGH) BSA - 1.62 sq.m BMI - 22.07 Temperature - 98.6 F Pulse - 82 /min Respiration - 18 /min BP - 159/50 mm(hg) (HIGH) O2 Sat - 95 % (LOW) Pain - 0 Fatigue - 6 Physical Examination: Constitutional - She appears somewhat frail generally, Eyes - Sclerae nonicteric. Conjunctivae clear, ENMT - No lesions noted in the oral cavity, Hematologic/Lymphatic - No cervical, clavicular, or axillary adenopathy, Respiratory - Lungs are clear with good air movement bilaterally, Cardiovascular - Heart rhythm is regular. There is a II/ systolic murmur. There is no gallop or rub noted, Abdomen - Soft. Liver and spleen are not enlarged. There is no abdominal mass or ascites noted and there is no inguinal adenopathy, Extremities - Slight edema, Neurologic - No focal neurologic deficits noted. Lab/Imaging: Test performed on Feb 23, 2021 11:00 WBC 2.5 10 3/uL RBC 2.85 10 6/uL HGB 8.8 g/dL HCT 25.8 % MCV 90.5 fl MCH 30.9 pg MCHC 34.1 g/dL RDW 14.0 % Platelet Count 37 10 3/cmm MPV 14.2 fL Neutrophils 1.50 10 3/uL Lymphocytes 0.4 10 3/uL Monocytes 0.6 10 3/uL Eosinophils 0.0 10 3/uL Basophils 0.0 10 3/uL Neutrophil % 60.0 % Lymphocyte % 15.6 % Monocyte % 23.2 % Eosinophil % 0.0 % Basophils % 0.0 % NRBC % 0 % CBC Slide Review Slide Review Perform SLIDE REVIEWED AGREES WITH THE AUTO RESULT. Anti-D Test Not Performed ordering bb hold Blood Type Test Not Performed ordering bb hold Antibody Screen (Gel) Test Not Performed ordering bb hold Test performed on Feb 11, 2021 11:05 Manual Diff No WILL REORDER Irradiated Red Blood Cells [id number] RCI XM COMPATIBLE Problem List: 1. 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 She has associated pancytopenia with predominant anemia. 2. She had mild symptoms of peripheral neuropathy, and she was found to have evidence of B12 deficiency. 3. Hypertension. 4. Hyperlipidemia. 5. GERD. 6. She has CT evidence of COPD, though with fairly minimal smoking history. 7. Degenerative arthritis with previous total knee arthroplasty bilaterally. Problems Addressed with this Encounter and Plan: Patient with pancytopenia with predominant macrocytic anemia. Her laboratory studies from 11/16/2020 included a B12 level in the low normal range and a significantly elevated methylmalonic acid level, consistent with B12 deficiency. She also had a significantly elevated sed rate and 99 mm/h. With those findings, she was recommended to begin B12 injections. She then presented with worsening symptoms which include severe weakness/fatigue, daily fever and night sweating, and increased joint pain. She continued her B12 replacement, but at that point I also opted to have her start steroid therapy. She then underwent bone marrow aspiration/biopsy on 12/15/2020. The marrow was hypercellular with blasts estimated at 8%. The FISH panel for MDS was positive for chromosome 5q deletion. Based on her current CBC and estimated 8% blasts in the bone marrow, her IPSS-R calculates to 4.5, intermediate risk. With those findings, she was recommended to begin a trial of therapy with lenalidomide 10 mg daily for 28 days each month. Aspirin prophylaxis was omitted due to thrombocytopenia, baseline platelet count 33,000. Treatment started on 01/07/2021. After 4 days her repeat CBC showed a decrease in the platelet count to 20,000, and at that point the lenalidomide was decreased to every other day. After 1 week there was further decrease in the platelet count to 14,000, at that point the lenalidomide was stopped. She had no bleeding complications. She did require PRBC transfusion on 01/21/2021 with her hemoglobin decreased to 6.8 g. As of her follow-up visit on 02/02/2021 her blood counts were showing some recovery, and she continued with cycle 2 of lenalidomide with the dosage reduced to 5 mg daily. As of 02/11/2021 treatment was put on hold again with her platelet count decreased to 19,000. At that time she also required PRBC transfusion. At this point she continues to have moderately severe neutropenia and thrombocytopenia, and for now her treatment will remain on hold. Blood counts will be monitored twice weekly. She will be transfused as needed. If she has adequate recovery, I will consider trying 1 more cycle of treatment with lenalidomide with a further dose reduction to 2.5 mg. However, I also will now check an erythropoietin level, and in the meantime she will continue prednisone 10 mg daily for her associated constitutional symptoms. Signed By: Alejandro Dorantes M.D. <<Signature on File>>
== END 2021-02-23 23:59 | disposition home or self-care (01) ==
LOC: ONCMED 06:30
PROVIDERS: PCP Family Medicine; Visit Provider Internal Medicine Medical Oncology
DX: D46.C Myelodysplastic syndrome with isolated del(5q) chromosomal abnormality (principal); D61.818 Other pancytopenia; G62.9 Polyneuropathy, unspecified; D51.9 Vitamin B12 deficiency anemia, unspecified; I10 Essential (primary) hypertension; E78.5 Hyperlipidemia, unspecified; K21.9 Gastro-esophageal reflux disease without esophagitis; J44.9 Chronic obstructive pulmonary disease, unspecified; F17.210 Nicotine dependence, cigarettes, uncomplicated; Z96.651 Presence of right artificial knee joint; Z96.652 Presence of left artificial knee joint; Z79.899 Other long term (current) drug therapy
CPT/HCPCS: 36415; 36430; 80053; 83615; 85025; 86850; 86900; 86920; 99214; 99215; J1940; J7050; P9040

== ENCOUNTER 2021-03-15 08:47 | Outpatient (RCR) | payer MEDICARE, OTHER, SELFPAY ==
[2021-03-01 10:13] LABS: Lymphocytes # 0.6 10^3/uL (0.8-4.8); Lymphocytes % 18.5 %; Mean Corpuscular HGB Conc 33.3 g/dL (30.0-36.0); Mean Corpuscular Hemoglobin 30.7 pg (28.0-34.0); Mean Platelet Volume 13.5 fL (7.4-10.4); Monocytes # 0.6 10^3/uL (0.2-0.9); Monocytes % 17.4 %; Neutrophils # 2.13 10^3/uL (1.8-7.7); Neutrophils % 62.6 %; Nucleated Red Blood Cells % 0 %; Platelet Count 32 10^3/cmm (130-400); Red Blood Count 2.61 10^6/uL (4.1-5.3); Red Cell Distribution Width 14.2 % (12.1-15.1); White Blood Count 3.4 10^3/uL (4.0-10.0)
[2021-03-01 10:42] LABS: Alanine Aminotransferase 17 U/L (0-33); Albumin Level 3.6 g/dL (3.5-5.2); Alkaline Phosphatase 76 IU/L (35-105); Anion Gap 15.9 (5-19); Aspartate Amino Transferase 12 U/L (0-32); Blood Urea Nitrogen 20 mg/dL (8-23); Calcium 8.4 mg/dL (8.5-10.5); Carbon Dioxide 23 mmol/L (22-29); Chloride 101 mmol/L (98-107); Globulin 2.7 g/dL (1.3-4.6); Glucose 120 mg/dL (65-115); Lactate Dehydrogenase 313 U/L (135-214); Osmolality Calculated 284 mOsm/kg (285-295); Potassium 4.9 mmol/L (3.5-5.1); Sodium 135 mmol/L (136-145); Total Bilirubin 0.8 mg/dL (0.15-1.2); Total Protein 6.3 g/dL (6.6-8.7)
[2021-03-02] VITALS (8 sets, daily range): BP systolic 110–122; BP diastolic 50–64; PULSE 69–78; RESP 18; TEMP 36.1–37.1; O2SAT 97–98
[2021-03-02] MEDS: sodium chloride 0.9% 250 ML 999 ML IV (09:00)
[2021-03-02] MEDS: diphenhydrAMINE 25 mg Capsule PO (09:00)
[2021-03-02] MEDS: acetaminophen 325 mg Tablet 650 MG PO (09:00)
[2021-03-02] MEDS: FUROsemide 10 mg/mL SDV 2mL 20 MG IV (11:10)
[2021-03-03 17:38] LABS: Erythropoietin 736.3 mIU/mL (2.6-18.5)
[2021-03-05 09:02] LABS: Hematocrit 32.3 % (37.0-47.0); Hemoglobin 10.6 g/dL (11.5-15.3); Lymphocytes # 0.6 10^3/uL (0.8-4.8); Lymphocytes % 14.1 %; Mean Corpuscular HGB Conc 32.8 g/dL (30.0-36.0); Mean Corpuscular Hemoglobin 30.1 pg (28.0-34.0); Mean Corpuscular Volume 91.8 fl (81-99); Mean Platelet Volume 13.9 fL (7.4-10.4); Monocytes # 0.4 10^3/uL (0.2-0.9); Monocytes % 9.3 %; Neutrophils # 3.01 10^3/uL (1.8-7.7); Neutrophils % 76.1 %; Nucleated Red Blood Cells % 0 %; Red Blood Count 3.52 10^6/uL (4.1-5.3); Red Cell Distribution Width 14.4 % (12.1-15.1)
[2021-03-05 09:40] LABS: Platelet Count 20 10^3/cmm (130-400); Slide Review Slide Review Perform
[2021-03-08 08:53] LABS: Hematocrit 31.8 % (37.0-47.0); Hemoglobin 10.3 g/dL (11.5-15.3); Lymphocytes # 0.6 10^3/uL (0.8-4.8); Lymphocytes % 14.8 %; Mean Corpuscular HGB Conc 32.4 g/dL (30.0-36.0); Mean Corpuscular Volume 92.7 fl (81-99); Monocytes # 0.2 10^3/uL (0.2-0.9); Monocytes % 4.9 %; Neutrophils # 3.28 10^3/uL (1.8-7.7); Neutrophils % 79.8 %; Nucleated Red Blood Cells % 0 %; Red Blood Count 3.43 10^6/uL (4.1-5.3); Red Cell Distribution Width 14.1 % (12.1-15.1); White Blood Count 4.1 10^3/uL (4.0-10.0)
[2021-03-08 09:06] LABS: Mean Platelet Volume 12.7 fL (7.4-10.4)
[2021-03-08 09:08] LABS: Platelet Count 20 10^3/cmm (130-400)
[2021-03-15 09:24] LABS: Hematocrit 25.8 % (37.0-47.0); Hemoglobin 8.7 g/dL (11.5-15.3); Lymphocytes # 0.8 10^3/uL (0.8-4.8); Mean Corpuscular HGB Conc 33.7 g/dL (30.0-36.0); Mean Corpuscular Hemoglobin 30.9 pg (28.0-34.0); Mean Corpuscular Volume 91.5 fl (81-99); Monocytes # 0.2 10^3/uL (0.2-0.9); Neutrophils % 70.4 %; Nucleated Red Blood Cells % 0 %; Red Blood Count 2.82 10^6/uL (4.1-5.3); White Blood Count 3.4 10^3/uL (4.0-10.0)
[2021-03-15 09:27] LABS: Platelet Count 28 10^3/cmm (130-400)
== END 2021-03-26 23:59 | disposition home or self-care (01) ==
LOC: ONCMED 08:47
PROVIDERS: PCP Family Medicine; Visit Provider Internal Medicine Medical Oncology
DX: D46.C Myelodysplastic syndrome with isolated del(5q) chromosomal abnormality (principal); D51.9 Vitamin B12 deficiency anemia, unspecified; D69.6 Thrombocytopenia, unspecified
CPT/HCPCS: 36415; 80053; 82668; 83615; 85025; 85651; 86850; 86900; 86920; J1940; J7050; P9040

== ENCOUNTER → 2021-04-08 11:55 | Outpatient (BNVA) | payer MEDICARE, OTHER, SELFPAY | PROVIDERS: PCP Family Medicine; Visit Provider Internal Medicine Medical Oncology | DX: Z01.812 Encounter for preprocedural laboratory examination (principal); Z20.822 Contact with and (suspected) exposure to COVID-19 | CPT/HCPCS: 87635 ==

== ENCOUNTER 2021-04-12 11:28 | Day surgery (SDC) | payer MEDICARE, OTHER, SELFPAY ==
[2021-04-07 14:30] VITALS: BMI 21.2
[2021-04-12] MEDS: sodium chloride 0.9% 1,000 ML 30 ML IV (12:15)
--- NOTE | 2021-04-12 12:20 | W.PM.OPSUD ---
Surgery/Procedure H&P Update DATE OF PROCEDURE: April 12, 2021 DATE H&P PERFORMED: 12/09/20 PREOP DIAGNOSIS: Anemia PLANNED PROCEDURE: Operation Date: 04/12/21 12:30 Proposed Procedures p Bone Marrow Biospy With Aspiration(Not Applicable) - Harjeet Cleveland MD Patient was seen and evaluated and Dr. Dorantes's last note reviewed and patient has no new symptoms and no changes on physical exam. We will proceed with bone marrow aspiration and biopsy as planned.
[2021-04-12 12:21] VITALS: BP 133/56; PULSE 77; RESP 18; TEMP 37; O2SAT 97
--- NOTE | 2021-04-12 12:23 | ANES.PREANE2 ---
Pre-Anesthetic Assessment Pre-Anesthetic Assessment: Height/Weight: Height 1.63 m Weight 56.245 kg Temp Pulse Resp BP Pulse Ox 98.6 F 77 18 133/56 97 04/12/21 12:21 04/12/21 12:21 04/12/21 12:21 04/12/21 12:21 04/12/21 12:21 Preop Diagnosis: Anemia Proposed Procedure: Operation Date: 04/12/21 12:30 Proposed Procedures p Bone Marrow Biospy With Aspiration(Not Applicable) - Harjeet Cleveland MD Familial anesthetic complications: none Was Beta Rupal taken within 24 hours: Yes Was Clonidine taken within 24 hours: N/A Last Intake: 22:00 Social: Social History: No alcohol and No tobacco Exam: Pre-Anes Outpt Exam: alert, oriented x 3, clear to auscultation bilaterally and regular rate & rhythm Airway: Submandibular: WNL Cervical ROM: WNL MP: 1 Dentition: Partials (upper) Pulmonary: Pulmonary: COPD CV/HEM: CV/HEM: HTN : : None reported Hepatic: Hepatic: None reported GI: GI: GERD (controlled) Metabolic: Metabolic: None reported Musc/skel: Musc/skel: Lower Back Pain and OA/DJD Neuropsych: Neuropsych: None reported Anesthetic Plan: ASA status: 3 Anesthesia: MAC PFSH Anesthesia PFSH: Medical History (Updated 11/12/20 @ 00:01 by ) COPD (chronic obstructive pulmonary disease) has not smoked since teenage years, < 2 packs years, 2nd hand exposure COVID-19 vaccine administered Moderna 3 para 3 Hyperlipidemia Hypertension Surgical History (Updated 11/11/20 @ 02:39 by Isa Armenta MD) H/O hemorrhoidectomy (~2014) Family History (Updated 11/11/20 @ 05:08 by Isa Armenta MD) Mother Heart attack Father Pulmonary fibrosis Sister Lung cancer Brother Lung cancer Son History of splenectomy Social History Smoking and tobacco status: former smoker Quit status (tobacco): has quit using tobacco Second hand smoke exposure: Yes Alcohol intake: never Adopted: No Lives independently: No Household members: children Marital status: / Number of children: 4 Number of grandchildren: 7 Highest education level completed: High School Graduate service: No Current occupational status: retired Pets and animals: No History of recent travel: No Leisure activites: other Current gender identity: Female Quin/Gnosticism: Advent Special quin needs: No Agree to transfusion: Yes Data Anesthesia CBC & Chem 7: 04/12/21 12:10 Cardiac Studies: No Data to Display
[2021-04-12 12:27] LABS: Basophils % 0.5 %; Eosinophils % 0.9 %; Hematocrit 21.1 % (37.0-47.0); Hemoglobin 7.1 g/dL (11.5-15.3); Lymphocytes % 47.2 %; Mean Corpuscular HGB Conc 33.6 g/dL (30.0-36.0); Mean Corpuscular Hemoglobin 31.1 pg (28.0-34.0); Mean Corpuscular Volume 92.5 fl (81-99); Mean Platelet Volume 13.1 fL (7.4-10.4); Monocytes # 0.3 10^3/uL (0.2-0.9); Monocytes % 13.2 %; Neutrophils % 37.3 %; Nucleated Red Blood Cells % 0 %; Red Blood Count 2.28 10^6/uL (4.1-5.3); Red Cell Distribution Width 13.8 % (12.1-15.1); White Blood Count 2.1 10^3/uL (4.0-10.0)
--- NOTE | 2021-04-12 12:50 | P.PCN_ITS ---
Bone Marrow Biopsy Bone Marrow Biopsy: I was consulted by [Dr. Dorantes] office regarding bone marrow biopsy on [Ria Hooks]. 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 In the Outpatient Services Department, with nursing staff and laboratory technologists in attendance, the procedure was discussed with the patient. Appropriate consent form had been signed. Appropriate alternatives, benefits and risks of procedure were discussed with the patient and she was pre- operatively assessed with a history and physical by myself and cleared for the biopsy procedure. The patient did request IV sedation and that was provided by the Anesthesia Department. Under aseptic condition right posterior iliac area was cleaned and prepped, local anesthesia was given, about 20 cc of bone marrow aspirate and core biopsy was obtained, patient tolerated procedure well, specimen was sent for heme next generation sequencing, flow cytometry, routine histopathology. Patient tolerated procedure well, postprocedure nursing instructions were given Thank you for allowing me to participate in this patient's care and diagnosis. Coding Level of Care Code [facility] [employer] [facility] [facility] Director for [facility]
[2021-04-12 12:51] VITALS: BP 110/49; PULSE 73; RESP 16; TEMP 37.5; O2SAT 99
[2021-04-12 13:01] VITALS: BP 122/61; PULSE 72; RESP 18; O2SAT 100
[2021-04-12 13:26] VITALS: BP 123/50; PULSE 74; RESP 18; O2SAT 93
[2021-04-12 13:33] LABS: Slide Review Slide Review Perform
[2021-04-12 13:34] LABS: Neutrophils # 0.79 10^3/uL (1.8-7.7); Platelet Count 13 10^3/cmm (130-400)
[2021-04-12 13:48] VITALS: BP 128/52; PULSE 79; RESP 18; O2SAT 92
--- NOTE | 2021-04-12 14:15 | ANE.PACU2 ---
Inpatient post-anesthesia follow up: Airway intact: Yes Vital signs: Temperature 99.5 F Pulse Rate 79 Respiratory Rate 18 Blood Pressure 128/52 Pulse Oximetry 92 Oxygen Delivery Me thod Room Air Oxygen Flow Rate 4 Fraction of Inspir ed Oxygen Hydration adequate: Yes Nausea and vomiting: No Pain level: 1 Mental status: Baseline
[2021-04-14 07:53] LABS: Miscellaneous Test See Scanned Lab Rpt
[2021-04-27 15:25] LABS: Miscellaneous Test See Scanned Lab Rpt
== END 2021-04-12 14:04 | disposition home or self-care (01) ==
PROVIDERS: Internal Medicine Medical Oncology; PCP Family Medicine; Visit Provider Internal Medicine Hematology & Oncology
PROC: 07DT3ZX Extraction of Bone Marrow, Percutaneous Approach, Diagnostic (ICD-10-PCS; CPT 38222; principal; 2021-04-12 12:30)
DX: D61.818 Other pancytopenia (principal); D46.9 Myelodysplastic syndrome, unspecified; J44.9 Chronic obstructive pulmonary disease, unspecified; I10 Essential (primary) hypertension; K21.9 Gastro-esophageal reflux disease without esophagitis; E78.5 Hyperlipidemia, unspecified; Z87.891 Personal history of nicotine dependence
CPT/HCPCS: 36415; 38222; 85025; 86850; 86900; 86920; 88184; 88185; 88237; 88264; 88305; 88311; 88367; 88374; J2704; J7030

== ENCOUNTER 2021-04-19 06:34 | Outpatient (RCR) | payer MEDICARE, OTHER, SELFPAY ==
[2021-03-29 09:35] LABS: Eosinophils % 0.4 %; Hematocrit 29.2 % (37.0-47.0); Hemoglobin 9.8 g/dL (11.5-15.3); Lymphocytes # 0.7 10^3/uL (0.8-4.8); Lymphocytes % 28.9 %; Mean Corpuscular HGB Conc 33.6 g/dL (30.0-36.0); Mean Corpuscular Hemoglobin 30.8 pg (28.0-34.0); Mean Corpuscular Volume 91.8 fl (81-99); Monocytes # 0.4 10^3/uL (0.2-0.9); Monocytes % 14.9 %; Neutrophils # 1.19 10^3/uL (1.8-7.7); Neutrophils % 49.2 %; Nucleated Red Blood Cells % 0 %; Red Blood Count 3.18 10^6/uL (4.1-5.3); Red Cell Distribution Width 14.6 % (12.1-15.1); White Blood Count 2.4 10^3/uL (4.0-10.0)
[2021-03-29 10:15] LABS: Slide Review Slide Review Perform
[2021-03-29 10:16] LABS: Platelet Count 18 10^3/cmm (130-400)
[2021-03-29] MEDS: sodium chloride 0.9% 500 ML 999 ML IV (11:40)
[2021-03-29 12:11] LABS: Alanine Aminotransferase 12 U/L (0-33); Albumin Level 3.3 g/dL (3.5-5.2); Alkaline Phosphatase 64 IU/L (35-105); Anion Gap 15.3 (5-19); Aspartate Amino Transferase 13 U/L (0-32); Blood Urea Nitrogen 24 mg/dL (8-23); Calcium 8.4 mg/dL (8.5-10.5); Carbon Dioxide 22 mmol/L (22-29); Chloride 101 mmol/L (98-107); Globulin 3.2 g/dL (1.3-4.6); Glucose 140 mg/dL (65-115); Lactate Dehydrogenase 291 U/L (135-214); Osmolality Calculated 284 mOsm/kg (285-295); Potassium 4.3 mmol/L (3.5-5.1); Sodium 134 mmol/L (136-145); Total Bilirubin 0.5 mg/dL (0.15-1.2); Total Protein 6.5 g/dL (6.6-8.7)
[2021-03-29 13:40] LABS: Bilirubin Urine 2+ (Negative); Blood Urine 3+ (Negative); Glucose Urine UA Norm (Normal); Ketones Urine Negative (Negative); Leukocyte Esterase Urine 2+ (Negative); Nitrate Urine Positive (Negative); Protein Urine 2+ (Negative); Urine Appearance Cloudy (CLEAR); Urine Color Amber (Yellow); Urobilinogen Urine 4 mg/dL (Negative); pH Urine 5 (5-7)
[2021-03-29 13:41] LABS: Add Urine Culture? Yes; Bacteria Urine 2+ /hpf; Mucus Urine 1+ /hpf; RBC Urine 25-40 /hpf (0-2); Squamous Epithelial Cell Urine 0-4 /hpf (0-5); WBC Urine >100 /hpf (0-5)
--- NOTE | 2021-04-02 07:30 | ONC FU_ITS ---
Dr. Dorantes Patient Follow-Up Note Patient: Ria Hooks Unit #: [id number]: 1935 Dicatated By: Alejandro Dorantes M.D.Date of Visit:Mar 29, 2021 Onc Med Follow-up/Prog Note Chief Complaint: Anemia/myelodysplastic syndrome. History of Present Illness: This is an 85-year-old woman with pancytopenia and predominant anemia. In late September or early October 2020 she had developed acute illness with fever, cough, sore throat, and sinusitis symptoms. She also was having some fatigue with that illness. She had then been seen in the office by Omaira Monzon on 11/10/2020. Her main complaint at that time was numbness in her lower legs and feet, which appeared to be due to peripheral neuropathy. At that point she was feeling exhausted. She was found to be severely anemic with her hemoglobin low at 6 g. On further evaluation in the emergency room, her CBC showed hemoglobin 6.1 g with hematocrit 19.5%. The red cell indices were macrocytic with MCV 112.1 and MCH 35.1. The white blood cell count was 4000 with the differential showing 73% neutrophils, 20% lymphocytes, 3% monocytes, and 1% eosinophils. The platelet count was mildly decreased at 113,000. Comprehensive metabolic profile was unremarkable. LDH was slightly elevated at 238/214 U/L. Her serum iron studies showed elevated transferrin saturation at 54.8% and the ferritin also was elevated at 431 ng/mL. B12 was borderline low at 237 pg/mL with folate normal at 10.7 ng/mL. TSH was normal 2.23 ???IU/mL. She was admitted to the hospital and she was transfused 2 units PRBC. She was able to be discharged home the following day. I had seen her initially on 11/16/2020. Her repeat CBC showed hemoglobin increased to 9.1 g with white blood cell count 3700 and platelet count 98,000. The red cell indices were macrocytic with MCV 106 and MCH 33. Her sed rate was significantly elevated at 99 mm/h. Comprehensive metabolic profile was unremarkable except for slightly elevated alkaline phosphatase at 121/105 IU/L. LDH was mildly elevated at 251/214 U/L. B12 level is in the low normal range at 255 pg/mL. Her methylmalonic acid level was found to be significantly elevated at 1350 nmol/L. With those findings, she was recommended to begin B12 injections. She was seen for a follow-up visit on 12/09/2020. She had worsening weakness/fatigue despite the B12 injections and she again required PRBC transfusion with her hemoglobin back down to 5.6 g. She also reported having increasing joint pain, and with her sedimentation rate significantly elevated I opted to start her on steroid therapy with prednisone. She then underwent bone marrow aspiration/biopsy on 12/15/2020. The aspirate specimen was very limited, and the interpretation was largely based on the biopsy. The marrow did appear to be hypercellular, estimated at 50 to 80%. There was noted to be myeloid predominance with dismyelopoiesis and dysmegakaryopoiesis. Blasts were estimated at approximately 8%. Iron stores were noted to be increased. 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 Her other medical illnesses include hypertension, hyperlipidemia, GERD, COPD, and degenerative arthritis. She has had previous total knee arthroplasty bilaterally. She has a history of smoking, but limited to a pack of cigarettes daily for 10 years starting at age 20. INTERIM HISTORY: In the presence of a chromosome 5q deletion, she began a trial of therapy with lenalidomide 10 mg daily for 28 days. Aspirin prophylaxis was omitted due to thrombocytopenia, platelet count 33,000. Her baseline hemoglobin was 7.2 g with white blood cell count 9700. Her repeat CBC 4 days later did show an increase in hemoglobin to 9.2 g and her white blood cell count remained adequate at 6000. Her platelet count, though, dropped to 20,000. She continued lenalidomide 10 mg every other day and by the following week her platelet count was down to 14,000. She then stopped treatment. She required PRBC transfusion on 01/21/2021 with her hemoglobin decreased to 6.8 g. She did show gradual recovery of her platelet count. She had subsequently presented with pain and redness in both eyes. She was seen by Dr. Pritchard, that did improve with topical therapy. As of her follow-up visit on 02/02/2021 her blood counts were showing some recovery and she began a 2nd cycle of lenalidomide with the dosage reduced to 5 mg daily. As of 02/11/2021 her treatment was put on hold with her platelet count back down to 19,000. At that point she also required PRBC transfusion, hemoglobin having dropped to 6.9 g. As of her follow-up visit on 02/23/2021 her platelet count had come back up to 37,000, but at that point her white count was low at 2500 with absolute neutrophil count 1500. Her treatment remained on hold, and the following week she was transfused PRBC again. As of March 15, 2021 she restarted lenalidomide at 2.5 mg daily for 14 days. She is seen for a follow-up visit. She had recently called reporting that she had symptoms of bladder infection, and she was started on Bactrim empirically. Her symptoms, though, have not improved as she continues to have severe pain with urination along with a nagging pain in the lower abdominal area. Her energy is not been good and there has been decline in her activity tolerance. ECOG score is 2. Her appetite also is not as good. She has not had fever. She continues to have sweating at night. She has not had sore mouth or throat. She has just occasional cough. She does not complain of shortness of breath or chest pain. She has not been having nausea. She has occasional heartburn and she has ongoing problems with constipation. She has no significant joint or bone pain, but she has been having leg cramps. She recently had a fall at home. She does not complain of headache. She has difficulty with balance/equilibrium. She complains that her fingers and feet feel . Medications: Acyclovir 1 Tablet (of 400 mg) Oral b.i.d., ALPRAZolam 1 Tablet (of 0.25 mg) Oral b.i.d. PRN, amLODIPine Besylate 1 Tablet (of 10 mg) Oral daily, Atorvastatin Calcium 1 Tablet (of 20 mg) Oral daily, B-12 (100 mcg) Tablet Oral daily, Bystolic 1 Tablet (of 10 mg) Oral daily, predniSONE 2 Tablet (of 10 ) Oral b.i.d., PriLOSEC 1 Capsule (of 20 mg) Capsule Delayed Release Oral daily, ProAir HFA 2 Puff(s) (of 108 (90 base) mcg/act) Aerosol, solution Inhalation four times a day PRN, Sulfamethoxazole-Trimethoprim 1 Tablet (of 800-160 mg) Oral t.i.d., Valsartan 1 Tablet (of 40 mg) Oral daily Allergies: Nitrofurantoin Macrocrystal Vital Signs: Performed on Mar 29, 2021 10:38 Height - 64.00 in Weight - 123.4 lbs (LOW) BSA - 1.59 sq.m BMI - 21.18 Temperature - 97.6 F (LOW) Pulse - 82 /min Respiration - 18 /min BP - 147/67 mm(hg) (HIGH) O2 Sat - 96 % Pain - 6 Fatigue - 8 Physical Examination: Constitutional - She appears somewhat weak generally, Eyes - Sclerae nonicteric. Conjunctivae clear, ENMT - No lesions noted in the oral cavity, Hematologic/Lymphatic - No cervical, clavicular, or axillary adenopathy, Respiratory - Lungs are clear with good air movement bilaterally, Cardiovascular - Heart rhythm is regular. There is a II/ systolic murmur. There is no gallop or rub noted, Abdomen - Soft. Liver and spleen are not enlarged. There is no abdominal mass or ascites noted and there is no inguinal adenopathy, Extremities - Slight edema, Neurologic - No focal neurologic deficits noted. Lab/Imaging: Test performed on Mar 29, 2021 11:00 LDH (Total) 291 U/L Sodium 134 mmol/L Potassium 4.3 mmol/L Chloride 101 mmol/L CO2 22 mmol/L Anion Gap 15.3 BUN 24 mg/dL Creatinine 1.4 mg/dL Cr Clearance (Est) 26.9000 mL/min Glucose 140 mg/dL Osmolality - Calculated 284 mOsm/kg Calcium 8.4 mg/dL Protein, Total 6.5 g/dL Albumin 3.3 g/dL Globulin 3.2 g/dL Bilirubin, Total 0.5 mg/dL ALT (SGPT) 12 U/L AST (SGOT) 13 U/L Alkaline Phosphatase 64 IU/L Ua Color Shantelle Ua Appearance Cloudy Ua pH 5 Ua Specific [place] 1.010 Ua Glucose Norm Ua Ketones Negative Ua Protein 2+ Ua Blood 3+ Ua Bilirubin 2+ Ua Urobilinogen 4 mg/dL Ua Nitrites Positive Ua Leukocyte Esterase 2+ Ua Micro: WBC >100 /hpf Ua Micro: RBC 25-40 /hpf Ua Micro: Squam Epith Cells 0-4 /hpf Ua Micro: Bacteria 2+ /hpf Ua Micro: Mucous 1+ /hpf Test performed on Mar 29, 2021 09:14 WBC 2.4 10 3/uL RBC 3.18 10 6/uL HGB 9.8 g/dL HCT 29.2 % MCV 91.8 fl MCH 30.8 pg MCHC 33.6 g/dL RDW 14.6 % Platelet Count 18 10 3/cmm Neutrophils 1.19 10 3/uL Lymphocytes 0.7 10 3/uL Monocytes 0.4 10 3/uL Eosinophils 0.0 10 3/uL Basophils 0.0 10 3/uL Neutrophil % 49.2 % Lymphocyte % 28.9 % Monocyte % 14.9 % Eosinophil % 0.4 % Basophils % 0.0 % NRBC % 0 % CBC Slide Review Slide Review Perform REVIEW AGREES WITH AUTOMATED RESULTS Anti-D Positive Blood Type AP Antibody Screen (Gel) NEGATIVE Problem List: 1. 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 She has associated pancytopenia with predominant anemia. 2. She was found to have evidence of B12 deficiency, but with no response to B12 replacement. 3. She has symptoms of peripheral neuropathy. 4. Hypertension. 5. Hyperlipidemia. 6. GERD. 7. She has CT evidence of COPD, though with fairly minimal smoking history. 8. Degenerative arthritis with previous total knee arthroplasty bilaterally. Problems Addressed with this Encounter and Plan: 1. Patient with pancytopenia with predominant macrocytic anemia. Her laboratory studies from 11/16/2020 included a B12 level in the low normal range and a significantly elevated methylmalonic acid level, consistent with B12 deficiency. She also had a significantly elevated sed rate and 99 mm/h. With those findings, she was recommended to begin B12 injections. She then presented with worsening symptoms which include severe weakness/fatigue, daily fever and night sweating, and increased joint pain. She continued her B12 replacement, but at that point I also opted to have her start steroid therapy. She then underwent bone marrow aspiration/biopsy on 12/15/2020. The marrow was hypercellular with blasts estimated at 8%. The FISH panel for MDS was positive for chromosome 5q deletion. Based on her current CBC and estimated 8% blasts in the bone marrow, her IPSS-R calculated to 4.5, intermediate risk. With those findings, she was recommended to begin a trial of therapy with lenalidomide 10 mg daily for 28 days each month. Aspirin prophylaxis was omitted due to thrombocytopenia, baseline platelet count 33,000. Treatment started on 01/07/2021. After 4 days her repeat CBC showed a decrease in the platelet count to 20,000, and at that point the lenalidomide was decreased to every other day. After 1 week there was further decrease in the platelet count to 14,000, at that point the lenalidomide was stopped. She had no bleeding complications. She did require PRBC transfusion on 01/21/2021 with her hemoglobin decreased to 6.8 g. As of her follow-up visit on 02/02/2021 her blood counts were showing some recovery, and she continued with cycle 2 of lenalidomide with the dosage reduced to 5 mg daily. As of 02/11/2021 treatment was put on hold again with her platelet count decreased to 19,000. As of March 15, 2021 she restarted treatment with lenalidomide with the dosage reduced to 2.5 mg daily for 14 days. Thus far she has had no observable response to the treatment, as she remains pancytopenic and transfusion dependent. At this point I do not think there is any reason to continue any further treatment with lenalidomide. She is not a candidate for treatment with erythropoietin stimulating agent, as her baseline erythropoietin level was elevated. I think the best approach now is to repeat a bone marrow aspiration and biopsy, to include a heme next generation sequencing study. Depending on the findings, we can consider further treatment with a hypomethylating agent and possibly venetoclax. In the meantime, she will be transfused PRBC again as needed. She also will continue prednisone 10 mg daily, as it does help with her constitutional symptoms. 2. She has evidence of urinary tract infection. She will start empiric antibiotic coverage with ciprofloxacin 500 mg twice daily pending outcome of urine culture. Signed By: Alejandro Dorantes M.D. <<Signature on File>>
[2021-04-06 13:08] LABS: Hematocrit 24.6 % (37.0-47.0); Hemoglobin 8.2 g/dL (11.5-15.3); Mean Corpuscular HGB Conc 33.3 g/dL (30.0-36.0); Mean Corpuscular Hemoglobin 30.9 pg (28.0-34.0); Mean Corpuscular Volume 92.8 fl (81-99); Mean Platelet Volume 13.9 fL (7.4-10.4); Red Blood Count 2.65 10^6/uL (4.1-5.3); Red Cell Distribution Width 14.1 % (12.1-15.1); White Blood Count 2.4 10^3/uL (4.0-10.0)
[2021-04-06 13:28] LABS: Alanine Aminotransferase 11 U/L (0-33); Albumin Level 3.5 g/dL (3.5-5.2); Alkaline Phosphatase 68 IU/L (35-105); Anion Gap 16.3 (5-19); Aspartate Amino Transferase 10 U/L (0-32); Blood Urea Nitrogen 18 mg/dL (8-23); Calcium 9.8 mg/dL (8.5-10.5); Carbon Dioxide 22 mmol/L (22-29); Chloride 101 mmol/L (98-107); Globulin 3.3 g/dL (1.3-4.6); Glucose 116 mg/dL (65-115); Iron 169 ug/dL (37-145); Lactate Dehydrogenase 260 U/L (135-214); Osmolality Calculated 283 mOsm/kg (285-295); Potassium 4.3 mmol/L (3.5-5.1); Sodium 135 mmol/L (136-145); Total Bilirubin 0.4 mg/dL (0.15-1.2); Total Protein 6.8 g/dL (6.6-8.7)
[2021-04-06 14:02] LABS: Ferritin 2730 ng/mL (15-150)
[2021-04-06 14:03] LABS: Slide Review Slide Review Perform; Total Iron Binding Capacity 169 mcg/dl; Unsaturated Iron Binding 0 ug/dL (112-347)
[2021-04-06 14:04] LABS: Platelet Count 15 10^3/cmm (130-400)
[2021-04-06 14:15] LABS: Absolute Neutrophil 1.4 10^3/cmm (1.4-6.5); Absolute Segmented Neutrophil 1.3 10/cmm (1.6-7.1); Eosinophils 1 %; Lymphocytes 30 %; Lymphocytes Absolute 0.8 10^3/cmm (1.2-3.4); Platelet Estimate Decreased (Normal); Segmented Neutrophils 55 %; Total Cells Counted 100 (0-100)
[2021-04-06 14:16] LABS: Crenated RBC 1+; Microcytosis 3+
[2021-04-06 14:45] LABS: Add RBC Morph No
[2021-04-13] VITALS (10 sets, daily range): BP systolic 64–115; BP diastolic 45–58; PULSE 63–66; RESP 18; TEMP 36.7–37; O2SAT 96–97
[2021-04-13] MEDS: acetaminophen 325 mg Tablet 650 MG PO (09:50)
[2021-04-13] MEDS: sodium chloride 0.9% 250 ML 999 ML IV (09:50)
[2021-04-13] MEDS: diphenhydrAMINE 25 mg Capsule PO (09:50)
[2021-04-19 11:51] LABS: Hematocrit 27.5 % (37.0-47.0); Hemoglobin 9.1 g/dL (11.5-15.3); Lymphocytes # 0.8 10^3/uL (0.8-4.8); Lymphocytes % 25.7 %; Mean Corpuscular HGB Conc 33.1 g/dL (30.0-36.0); Mean Corpuscular Volume 90.8 fl (81-99); Mean Platelet Volume 12.3 fL (7.4-10.4); Monocytes # 0.1 10^3/uL (0.2-0.9); Monocytes % 4.6 %; Neutrophils # 2.12 10^3/uL (1.8-7.7); Nucleated Red Blood Cells % 0 %; Red Blood Count 3.03 10^6/uL (4.1-5.3); Red Cell Distribution Width 13.8 % (12.1-15.1); White Blood Count 3.1 10^3/uL (4.0-10.0)
[2021-04-19 12:00] LABS: Platelet Count 18 10^3/cmm (130-400)
== END 2021-04-26 23:59 | disposition home or self-care (01) ==
LOC: ONCMED 06:34
PROVIDERS: PCP Family Medicine; Visit Provider Internal Medicine Medical Oncology
DX: D46.C Myelodysplastic syndrome with isolated del(5q) chromosomal abnormality (principal); D61.818 Other pancytopenia; D51.9 Vitamin B12 deficiency anemia, unspecified; G62.9 Polyneuropathy, unspecified; I10 Essential (primary) hypertension; E78.5 Hyperlipidemia, unspecified; K21.9 Gastro-esophageal reflux disease without esophagitis; J44.9 Chronic obstructive pulmonary disease, unspecified; F17.210 Nicotine dependence, cigarettes, uncomplicated; M17.0 Bilateral primary osteoarthritis of knee; Z96.651 Presence of right artificial knee joint; Z96.652 Presence of left artificial knee joint; Z79.899 Other long term (current) drug therapy; N39.0 Urinary tract infection, site not specified; Z79.2 Long term (current) use of antibiotics
CPT/HCPCS: 36415; 36430; 80053; 81001; 82728; 83540; 83550; 83615; 85007; 85025; 86850; 86900; 86920; 87077; 87086; 87186; 96360; 96374; 99215; J7040; J7050; P9040; P9058

== ENCOUNTER 2021-05-11 06:54 | Outpatient (RCR) | payer MEDICARE, OTHER, SELFPAY ==
[2021-04-27 10:36] LABS: Eosinophils % 0.4 %; Hematocrit 22.6 % (37.0-47.0); Hemoglobin 7.5 g/dL (11.5-15.3); Lymphocytes # 0.6 10^3/uL (0.8-4.8); Mean Corpuscular HGB Conc 33.2 g/dL (30.0-36.0); Mean Corpuscular Hemoglobin 30.6 pg (28.0-34.0); Mean Corpuscular Volume 92.2 fl (81-99); Mean Platelet Volume 13.3 fL (7.4-10.4); Monocytes # 0.2 10^3/uL (0.2-0.9); Monocytes % 5.9 %; Neutrophils # 1.94 10^3/uL (1.8-7.7); Neutrophils % 71.6 %; Nucleated Red Blood Cells % 0 %; Platelet Count 37 10^3/cmm (130-400); Red Blood Count 2.45 10^6/uL (4.1-5.3); Red Cell Distribution Width 13.8 % (12.1-15.1); White Blood Count 2.7 10^3/uL (4.0-10.0)
[2021-04-27] MEDS: acetaminophen 325 mg Tablet 650 MG PO (11:30)
[2021-04-27] MEDS: sodium chloride 0.9% 250 ML 999 ML IV (11:30)
[2021-04-27] MEDS: diphenhydrAMINE 25 mg Capsule PO (11:30)
[2021-04-27] MEDS: FUROsemide 10 mg/mL SDV 2mL 20 MG IV (14:00)
--- NOTE | 2021-04-27 19:11 | ONC FU_ITS ---
Dr. Dorantes Patient Follow-Up Note Patient: Ria Hooks Unit #: [id number]: [id number] Dicatated By: Alejandro Dorantes M.D.Date of Visit:Apr 27, 2021 Onc Med Follow-up/Prog Note Chief Complaint: Anemia/myelodysplastic syndrome. 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 In late September or early October 2020 she had developed acute illness with fever, cough, sore throat, and sinusitis symptoms. She also was having some fatigue with that illness. She had then been seen in the office by Omaira Monzon on 11/10/2020. Her main complaint at that time was numbness in her lower legs and feet, which appeared to be due to peripheral neuropathy. At that point she was feeling exhausted. She was found to be severely anemic with her hemoglobin low at 6 g. On further evaluation in the emergency room, her CBC showed hemoglobin 6.1 g with hematocrit 19.5%. The red cell indices were macrocytic with MCV 112.1 and MCH 35.1. The white blood cell count was 4000 with the differential showing 73% neutrophils, 20% lymphocytes, 3% monocytes, and 1% eosinophils. The platelet count was mildly decreased at 113,000. Comprehensive metabolic profile was unremarkable. LDH was slightly elevated at 238/214 U/L. Her serum iron studies showed elevated transferrin saturation at 54.8% and the ferritin also was elevated at 431 ng/mL. B12 was borderline low at 237 pg/mL with folate normal at 10.7 ng/mL. TSH was normal 2.23 ???IU/mL. She was admitted to the hospital and she was transfused 2 units PRBC. She was able to be discharged home the following day. I had seen her initially on 11/16/2020. Her repeat CBC showed hemoglobin increased to 9.1 g with white blood cell count 3700 and platelet count 98,000. The red cell indices were macrocytic with MCV 106 and MCH 33. Her sed rate was significantly elevated at 99 mm/h. Comprehensive metabolic profile was unremarkable except for slightly elevated alkaline phosphatase at 121/105 IU/L. LDH was mildly elevated at 251/214 U/L. B12 level is in the low normal range at 255 pg/mL. Her methylmalonic acid level was found to be significantly elevated at 1350 nmol/L. With those findings, she was recommended to begin B12 injections. She was seen for a follow-up visit on 12/09/2020. She had worsening weakness/fatigue despite the B12 injections and she again required PRBC transfusion with her hemoglobin back down to 5.6 g. She also reported having increasing joint pain, and with her sedimentation rate significantly elevated I opted to start her on steroid therapy with prednisone. She then underwent bone marrow aspiration/biopsy on 12/15/2020. The aspirate specimen was very limited, and the interpretation was largely based on the biopsy. The marrow did appear to be hypercellular, estimated at 50 to 80%. There was noted to be myeloid predominance with dismyelopoiesis and dysmegakaryopoiesis. Blasts were estimated at approximately 8%. Iron stores were noted to be increased. 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 Her other medical illnesses include hypertension, hyperlipidemia, GERD, COPD, and degenerative arthritis. She has had previous total knee arthroplasty bilaterally. She has a history of smoking, but limited to a pack of cigarettes daily for 10 years starting at age 20. INTERIM HISTORY: In the presence of a chromosome 5q deletion, she began a trial of therapy with lenalidomide 10 mg daily for 28 days. Aspirin prophylaxis was omitted due to thrombocytopenia, platelet count 33,000. Her baseline hemoglobin was 7.2 g with white blood cell count 9700. Her repeat CBC 4 days later did show an increase in hemoglobin to 9.2 g and her white blood cell count remained adequate at 6000. Her platelet count, though, dropped to 20,000. She continued lenalidomide 10 mg every other day and by the following week her platelet count was down to 14,000. She then stopped treatment. She required PRBC transfusion on 01/21/2021 with her hemoglobin decreased to 6.8 g. She did show gradual recovery of her platelet count. She had subsequently presented with pain and redness in both eyes. She was seen by Dr. Pritchard, that did improve with topical therapy. As of her follow-up visit on 02/02/2021 her blood counts were showing some recovery and she began a 2nd cycle of lenalidomide with the dosage reduced to 5 mg daily. As of 02/11/2021 her treatment was put on hold with her platelet count back down to 19,000. At that point she also required PRBC transfusion, hemoglobin having dropped to 6.9 g. As of her follow-up visit on 02/23/2021 her platelet count had come back up to 37,000, but at that point her white count was low at 2500 with absolute neutrophil count 1500. Her treatment remained on hold, and the following week she was transfused PRBC again. As of March 15, 2021 she restarted lenalidomide at 2.5 mg daily for 14 days. As of her follow-up visit on 03/29/2021 treatment was put on hold again due to neutropenia and thrombocytopenia, ANC 1100 and platelet count 18,000. Her repeat bone marrow aspiration/biopsy on 04/12/2021 showed estimated cellularity at 10 to 30%. Morphologic assessment was limited due to aspirate smears being aspicular. There was no evidence of increased blasts, estimated at 1 to 2% of the cellularity. The FISH panel for MDS was again positive for the chromosome 5 deletion. At that point her hemoglobin had dropped to 7.1 g, and she was transfused PRBC. She is seen for a follow-up visit. She complains that her energy is not too good, and she has limited activity. She does a little bit of housework. ECOG score is 2. Her appetite is also not very good, and when she eats she has been having pain in the epigastric area. She has not had fever or night sweats. She does not complain of sore mouth or throat. She does not complain of cough, and she has not been having shortness of breath or chest pain. She does have some nausea. Her bowel function is pretty good. She has no complaints. She has not having significant joint or bone pain, but she is still taking 10 mg of prednisone twice a day. The neuropathy in her hands and feet is unchanged. Medications: Acyclovir 1 Tablet (of 400 mg) Oral b.i.d., ALPRAZolam 1 Tablet (of 0.25 mg) Oral b.i.d. PRN, amLODIPine Besylate 1 Tablet (of 10 mg) Oral daily, Atorvastatin Calcium 1 Tablet (of 20 mg) Oral daily, Bystolic 1 Tablet (of 10 mg) Oral daily, predniSONE 2 Tablet (of 10 ) Oral daily, PriLOSEC 1 Capsule (of 20 mg) Capsule Delayed Release Oral daily, ProAir HFA 2 Puff(s) (of 108 (90 base) mcg/act) Aerosol, solution Inhalation four times a day PRN, Prochlorperazine Maleate (10 mg) Tablet Oral Take as Directed, Sulfamethoxazole-Trimethoprim 1 Tablet (of 800-160 mg) Oral t.i.d. Allergies: Nitrofurantoin Macrocrystal Vital Signs: Performed on Apr 27, 2021 11:26 Height - 64.00 in Weight - 122.8 lbs (LOW) BSA - 1.59 sq.m BMI - 21.08 Temperature - 98.3 F (LOW) Pulse - 81 /min Respiration - 16 /min BP - 148/73 mm(hg) (HIGH) O2 Sat - 94 % (LOW) Pain - 0 Fatigue - 8 Physical Examination: Constitutional - She appears somewhat weak generally, Eyes - Sclerae nonicteric. Conjunctivae clear, ENMT - No lesions noted in the oral cavity, Hematologic/Lymphatic - No cervical, clavicular, or axillary adenopathy, Respiratory - Lungs are clear with good air movement bilaterally, Cardiovascular - Heart rhythm is regular. There is a II/ systolic murmur. There is no gallop or rub noted, Abdomen - Soft. Liver and spleen are not enlarged. There is no abdominal mass or ascites noted and there is no inguinal adenopathy, Extremities - Slight edema, Neurologic - No focal neurologic deficits noted. Lab/Imaging: Test performed on Apr 27, 2021 09:35 WBC 2.7 10 3/uL RBC 2.45 10 6/uL HGB 7.5 g/dL HCT 22.6 % MCV 92.2 fl MCH 30.6 pg MCHC 33.2 g/dL RDW 13.8 % Platelet Count 37 10 3/cmm MPV 13.3 fL Neutrophils 1.94 10 3/uL Lymphocytes 0.6 10 3/uL Monocytes 0.2 10 3/uL Eosinophils 0.0 10 3/uL Basophils 0.0 10 3/uL Neutrophil % 71.6 % Lymphocyte % 21.0 % Monocyte % 5.9 % Eosinophil % 0.4 % Basophils % 0.0 % NRBC % 0 % Irradiated Red Blood Cells [id number] AP RCI XM COMPATIBLE Anti-D Positive Blood Type AP Antibody Screen (Gel) NEGATIVE Test performed on Apr 13, 2021 09:12 Irradiated Leuko Red RBC [id number] AP RCLRI XM COMPATIBLE Problem List: 1. 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 She has associated pancytopenia with predominant anemia. 2. She was found to have evidence of B12 deficiency, but with no response to B12 replacement. 3. She has symptoms of peripheral neuropathy. 4. Hypertension. 5. Hyperlipidemia. 6. GERD. 7. She has CT evidence of COPD, though with fairly minimal smoking history. 8. Degenerative arthritis with previous total knee arthroplasty bilaterally. Problems Addressed with this Encounter and Plan: 1. Patient with pancytopenia with predominant macrocytic anemia. Her laboratory studies from 11/16/2020 included a B12 level in the low normal range and a significantly elevated methylmalonic acid level, consistent with B12 deficiency. She also had a significantly elevated sed rate and 99 mm/h. With those findings, she was recommended to begin B12 injections. She then presented with worsening symptoms which include severe weakness/fatigue, daily fever and night sweating, and increased joint pain. She continued her B12 replacement, but at that point I also opted to have her start steroid therapy. She then underwent bone marrow aspiration/biopsy on 12/15/2020. The marrow was hypercellular with blasts estimated at 8%. The FISH panel for MDS was positive for chromosome 5q deletion. Based on her current CBC and estimated 8% blasts in the bone marrow, her IPSS-R calculated to 4.5, intermediate risk. With those findings, she was recommended to begin a trial of therapy with lenalidomide 10 mg daily for 28 days each month. Aspirin prophylaxis was omitted due to thrombocytopenia, baseline platelet count 33,000. Treatment started on 01/07/2021. After 4 days her repeat CBC showed a decrease in the platelet count to 20,000, and at that point the lenalidomide was decreased to every other day. After 1 week there was further decrease in the platelet count to 14,000, at that point the lenalidomide was stopped. She had no bleeding complications. She did require PRBC transfusion on 01/21/2021 with her hemoglobin decreased to 6.8 g. As of her follow-up visit on 02/02/2021 her blood counts were showing some recovery, and she continued with cycle 2 of lenalidomide with the dosage reduced to 5 mg daily. As of 02/11/2021 treatment was put on hold again with her platelet count decreased to 19,000. On 03/15/2021 she restarted treatment with lenalidomide with the dosage reduced to 2.5 mg daily for 14 days. As of 03/29/2021 her treatment was put on hold due to neutropenia and thrombocytopenia. Her repeat bone marrow aspiration/biopsy on 04/12/2021 showed her cellularity normal at 10 to 30%. Morphologic assessment was limited due to the aspirate being aspicular. Blasts were estimated 1 to 2%. The FISH panel for MDS was still positive for chromosome 5q deletion. Thus far her treatment has remained on hold, and at this point she does appear to be showing some recovery. Given the bone marrow findings, her treatment will remain on hold and if she continues to have recovery of the neutrophil and platelet counts, I may try starting the lenalidomide again at an even lower dosage. In the meantime, she will be transfused PRBC as needed. She will be scheduled to return for a blood count in 2 weeks and for a follow-up visit in 4 weeks. 2. She has evidence of transfusion associated iron overload. We are currently in the process of getting approval to begin iron chelation therapy with deferasirox. 3. She has recent onset of postprandial epigastric pain. I will have her try changing her PPI from omeprazole to pantoprazole 40 mg daily. I also recommended that she try decreasing the prednisone to 10 mg once daily. Signed By: Alejandro Dorantes M.D. <<Signature on File>>
[2021-05-11 14:51] LABS: Eosinophils % 0.5 %; Hematocrit 25.9 % (37.0-47.0); Hemoglobin 8.5 g/dL (11.5-15.3); Lymphocytes # 0.8 10^3/uL (0.8-4.8); Lymphocytes % 38.3 %; Mean Corpuscular HGB Conc 32.8 g/dL (30.0-36.0); Mean Corpuscular Hemoglobin 30.2 pg (28.0-34.0); Mean Corpuscular Volume 92.2 fl (81-99); Mean Platelet Volume 12.7 fL (7.4-10.4); Monocytes # 0.2 10^3/uL (0.2-0.9); Monocytes % 8.4 %; Neutrophils # 1.11 10^3/uL (1.8-7.7); Neutrophils % 51.9 %; Nucleated Red Blood Cells % 0 %; Platelet Count 30 10^3/cmm (130-400); Red Blood Count 2.81 10^6/uL (4.1-5.3); Red Cell Distribution Width 13.2 % (12.1-15.1); White Blood Count 2.1 10^3/uL (4.0-10.0)
[2021-05-11 15:17] LABS: Slide Review Slide Review Perform
== END 2021-05-24 23:59 | disposition home or self-care (01) ==
LOC: ONCMED 06:54
PROVIDERS: PCP Family Medicine; Visit Provider Internal Medicine Medical Oncology
DX: D46.C Myelodysplastic syndrome with isolated del(5q) chromosomal abnormality (principal); D61.818 Other pancytopenia; D64.9 Anemia, unspecified; D51.9 Vitamin B12 deficiency anemia, unspecified; G62.9 Polyneuropathy, unspecified; I10 Essential (primary) hypertension; E78.5 Hyperlipidemia, unspecified; K21.9 Gastro-esophageal reflux disease without esophagitis; J44.9 Chronic obstructive pulmonary disease, unspecified; F17.210 Nicotine dependence, cigarettes, uncomplicated; M17.0 Bilateral primary osteoarthritis of knee; Z79.899 Other long term (current) drug therapy; Z96.653 Presence of artificial knee joint, bilateral
CPT/HCPCS: 36415; 85025; 86850; 86900; 86920; 96374; 99214; J1940; J7050; P9040

== ENCOUNTER 2021-05-24 09:25 | Outpatient (CLI) | payer MEDICARE, OTHER, SELFPAY ==
[2021-05-24 11:28] LABS: Alanine Aminotransferase 14 U/L (0-33); Albumin Level 3.9 g/dL (3.5-5.2); Alkaline Phosphatase 101 IU/L (35-105); Anion Gap 15.1 (5-19); Aspartate Amino Transferase 13 U/L (0-32); Blood Urea Nitrogen 21 mg/dL (8-23); Calcium 9.5 mg/dL (8.5-10.5); Carbon Dioxide 23 mmol/L (22-29); Chloride 103 mmol/L (98-107); Globulin 2.6 g/dL (1.3-4.6); Glucose 215 mg/dL (65-115); Osmolality Calculated 293 mOsm/kg (285-295); Potassium 4.1 mmol/L (3.5-5.1); Sodium 137 mmol/L (136-145); Total Bilirubin 0.4 mg/dL (0.15-1.2); Total Protein 6.5 g/dL (6.6-8.7)
== END 2021-05-24 09:26 | disposition home or self-care (01) ==
LOC: ONCMED 09:30
PROVIDERS: PCP Family Medicine; Visit Provider Internal Medicine Medical Oncology
DX: D64.9 Anemia, unspecified (principal)
CPT/HCPCS: 36415; 80053; 85025; 86850; 86900; 86920

== ENCOUNTER 2021-06-10 06:49 | Outpatient (RCR) | payer MEDICARE, OTHER, SELFPAY ==
[2021-05-24 10:29] LABS: Hematocrit 21.3 % (37.0-47.0); Hemoglobin 6.8 g/dL (11.5-15.3); Lymphocytes # 0.6 10^3/uL (0.8-4.8); Lymphocytes % 26.5 %; Mean Corpuscular HGB Conc 31.9 g/dL (30.0-36.0); Mean Corpuscular Hemoglobin 30.1 pg (28.0-34.0); Mean Corpuscular Volume 94.2 fl (81-99); Monocytes # 0.3 10^3/uL (0.2-0.9); Monocytes % 12.6 %; Neutrophils # 1.36 10^3/uL (1.8-7.7); Neutrophils % 59.2 %; Nucleated Red Blood Cells % 0 %; Platelet Count 34 10^3/cmm (130-400); Red Blood Count 2.26 10^6/uL (4.1-5.3); Red Cell Distribution Width 13.7 % (12.1-15.1); White Blood Count 2.3 10^3/uL (4.0-10.0)
[2021-05-25] VITALS (8 sets, daily range): BP systolic 114–131; BP diastolic 50–68; PULSE 64–71; RESP 18; TEMP 37–37.2; O2SAT 97–98
[2021-05-25] MEDS: acetaminophen 325 mg Tablet 650 MG PO (08:30)
[2021-05-25] MEDS: sodium chloride 0.9% 250 ML 999 ML IV (08:30)
[2021-05-25] MEDS: diphenhydrAMINE 25 mg Capsule PO (08:30)
[2021-05-25] MEDS: FUROsemide 10 mg/mL SDV 2mL 20 MG IV (10:30)
[2021-05-25] MEDS: sodium chloride 0.9% (100 ml) 100 ML 75 ML (10:45)
[2021-05-27 10:27] LABS: Eosinophils % 0.3 %; Hematocrit 29.1 % (37.0-47.0); Hemoglobin 9.8 g/dL (11.5-15.3); Lymphocytes # 0.9 10^3/uL (0.8-4.8); Lymphocytes % 28.9 %; Mean Corpuscular HGB Conc 33.7 g/dL (30.0-36.0); Mean Corpuscular Hemoglobin 29.7 pg (28.0-34.0); Mean Corpuscular Volume 88.2 fl (81-99); Mean Platelet Volume 11.6 fL (7.4-10.4); Monocytes # 0.3 10^3/uL (0.2-0.9); Monocytes % 10.1 %; Neutrophils # 1.84 10^3/uL (1.8-7.7); Neutrophils % 59.7 %; Nucleated Red Blood Cells % 0 %; Platelet Count 30 10^3/cmm (130-400); Red Cell Distribution Width 13.9 % (12.1-15.1); White Blood Count 3.1 10^3/uL (4.0-10.0)
[2021-05-27 11:08] LABS: Slide Review Slide Review Perform
--- NOTE | 2021-05-30 12:20 | ONC FU_ITS ---
Dr. Dorantes Patient Follow-Up Note Patient: Ria Hooks Unit #: [id number]: [id number] Dicatated By: Alejandro Dorantes M.D.Date of Visit:May 27, 2021 Onc Med Follow-up/Prog Note Chief Complaint: Anemia/myelodysplastic syndrome. 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 In late September or early October 2020 she had developed acute illness with fever, cough, sore throat, and sinusitis symptoms. She also was having some fatigue with that illness. She had then been seen in the office by Omaira Monzon on 11/10/2020. Her main complaint at that time was numbness in her lower legs and feet, which appeared to be due to peripheral neuropathy. At that point she was feeling exhausted. She was found to be severely anemic with her hemoglobin low at 6 g. On further evaluation in the emergency room, her CBC showed hemoglobin 6.1 g with hematocrit 19.5%. The red cell indices were macrocytic with MCV 112.1 and MCH 35.1. The white blood cell count was 4000 with the differential showing 73% neutrophils, 20% lymphocytes, 3% monocytes, and 1% eosinophils. The platelet count was mildly decreased at 113,000. Comprehensive metabolic profile was unremarkable. LDH was slightly elevated at 238/214 U/L. Her serum iron studies showed elevated transferrin saturation at 54.8% and the ferritin also was elevated at 431 ng/mL. B12 was borderline low at 237 pg/mL with folate normal at 10.7 ng/mL. TSH was normal 2.23 ???IU/mL. She was admitted to the hospital and she was transfused 2 units PRBC. She was able to be discharged home the following day. I had seen her initially on 11/16/2020. Her repeat CBC showed hemoglobin increased to 9.1 g with white blood cell count 3700 and platelet count 98,000. The red cell indices were macrocytic with MCV 106 and MCH 33. Her sed rate was significantly elevated at 99 mm/h. Comprehensive metabolic profile was unremarkable except for slightly elevated alkaline phosphatase at 121/105 IU/L. LDH was mildly elevated at 251/214 U/L. B12 level is in the low normal range at 255 pg/mL. Her methylmalonic acid level was found to be significantly elevated at 1350 nmol/L. With those findings, she was recommended to begin B12 injections. She was seen for a follow-up visit on 12/09/2020. She had worsening weakness/fatigue despite the B12 injections and she again required PRBC transfusion with her hemoglobin back down to 5.6 g. She also reported having increasing joint pain, and with her sedimentation rate significantly elevated I opted to start her on steroid therapy with prednisone. She then underwent bone marrow aspiration/biopsy on 12/15/2020. The aspirate specimen was very limited, and the interpretation was largely based on the biopsy. The marrow did appear to be hypercellular, estimated at 50 to 80%. There was noted to be myeloid predominance with dismyelopoiesis and dysmegakaryopoiesis. Blasts were estimated at approximately 8%. Iron stores were noted to be increased. 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 Her other medical illnesses include hypertension, hyperlipidemia, GERD, COPD, and degenerative arthritis. She has had previous total knee arthroplasty bilaterally. She has a history of smoking, but limited to a pack of cigarettes daily for 10 years starting at age 20. INTERIM HISTORY: In the presence of a chromosome 5q deletion, she began a trial of therapy with lenalidomide 10 mg daily for 28 days. Aspirin prophylaxis was omitted due to thrombocytopenia, platelet count 33,000. Her baseline hemoglobin was 7.2 g with white blood cell count 9700. Her repeat CBC 4 days later did show an increase in hemoglobin to 9.2 g and her white blood cell count remained adequate at 6000. Her platelet count, though, dropped to 20,000. She continued lenalidomide 10 mg every other day and by the following week her platelet count was down to 14,000. She then stopped treatment. She required PRBC transfusion on 01/21/2021 with her hemoglobin decreased to 6.8 g. She did show gradual recovery of her platelet count. She had subsequently presented with pain and redness in both eyes. She was seen by Dr. Pritchard, that did improve with topical therapy. As of her follow-up visit on 02/02/2021 her blood counts were showing some recovery and she began a 2nd cycle of lenalidomide with the dosage reduced to 5 mg daily. As of 02/11/2021 her treatment was put on hold with her platelet count back down to 19,000. At that point she also required PRBC transfusion, hemoglobin having dropped to 6.9 g. As of her follow-up visit on 02/23/2021 her platelet count had come back up to 37,000, but at that point her white count was low at 2500 with absolute neutrophil count 1500. Her treatment remained on hold, and the following week she was transfused PRBC again. As of March 15, 2021 she restarted lenalidomide at 2.5 mg daily for 14 days. As of her follow-up visit on 03/29/2021 treatment was put on hold again due to neutropenia and thrombocytopenia, ANC 1100 and platelet count 18,000. Her repeat bone marrow aspiration/biopsy on 04/12/2021 showed estimated cellularity at 10 to 30%. Morphologic assessment was limited due to aspirate smears being aspicular. There was no evidence of increased blasts, estimated at 1 to 2% of the cellularity. The FISH panel for MDS was again positive for the chromosome 5 deletion. At that point her hemoglobin had dropped to 7.1 g, and she was transfused PRBC. She was transfused again on 05/25/2021 with her hemoglobin having dropped back down to 6.8 g. In the meantime, she also had evidence of transfusion associated iron overload with her transferrin saturation 100% and ferritin elevated at 2730 ng/mL. She is seen for a follow-up visit. She is feeling a little better following the recent transfusion. She had been weak and shaky. She is still able to do light work at home. Her ECOG score is 1. Her appetite has not been as good lately. She has not had fever and she currently is not having night sweating. She has not had sore mouth or throat. She does not complain of cough, and she is not having shortness of breath or chest pain. She has no GI complaints other than occasional diarrhea. Recently she has been bothered by swollen and painful hemorrhoid. She has had a little bleeding with it. She has no complaints. She has no significant joint or bone pain. She does not complain of headache or dizziness. She does have neuropathy in her hands and in her legs and feet. Medications: Acyclovir 1 Tablet (of 400 mg) Oral b.i.d., ALPRAZolam 1 Tablet (of 0.25 mg) Oral b.i.d. PRN, amLODIPine Besylate 1 Tablet (of 10 mg) Oral daily, Anusol-HC 1 Dose(s) (of 2.5 %) Cream Topical t.i.d., Atorvastatin Calcium 1 Tablet (of 20 mg) Oral daily, Bactrim 1 Tablet (of 400-80 mg) Oral b.i.d., Bystolic 1 Tablet (of 10 mg) Oral daily, Jadenu (360 mg) Tablet Oral daily, Pantoprazole Sodium (40 mg) Tablet, enteric coated Oral daily, predniSONE 1 Tablet (of 5 ) Oral daily, ProAir HFA 2 Puff(s) (of 108 (90 base) mcg/act) Aerosol, solution Inhalation four times a day PRN, Prochlorperazine Maleate (10 mg) Tablet Oral Take as Directed, Sulfamethoxazole-Trimethoprim 1 Tablet (of 800-160 mg) Oral t.i.d. Allergies: Nitrofurantoin Macrocrystal Vital Signs: Performed on May 27, 2021 11:17 Height - 64.00 in Weight - 123.2 lbs (HIGH) BSA - 1.59 sq.m BMI - 21.15 Temperature - 98.5 F Pulse - 78 /min Respiration - 16 /min BP - 145/73 mm(hg) (HIGH) O2 Sat - 95 % (LOW) Pain - 0 Fatigue - 6 Physical Examination: Constitutional - She appears somewhat weak generally, Eyes - Sclerae nonicteric. Conjunctivae clear, ENMT - No lesions noted in the oral cavity, Hematologic/Lymphatic - No cervical, clavicular, or axillary adenopathy, Respiratory - Lungs are clear with good air movement bilaterally, Cardiovascular - Heart rhythm is regular. There is a II/ systolic murmur. There is no gallop or rub noted, Abdomen - Soft. Liver and spleen are not enlarged. There is no abdominal mass or ascites noted and there is no inguinal adenopathy, Extremities - No edema, Neurologic - No focal neurologic deficits noted. Lab/Imaging: Test performed on May 27, 2021 10:20 WBC 3.1 10 3/uL RBC 3.30 10 6/uL HGB 9.8 g/dL HCT 29.1 % MCV 88.2 fl MCH 29.7 pg MCHC 33.7 g/dL RDW 13.9 % Platelet Count 30 10 3/cmm MPV 11.6 fL Neutrophils 1.84 10 3/uL Lymphocytes 0.9 10 3/uL Monocytes 0.3 10 3/uL Eosinophils 0.0 10 3/uL Basophils 0.0 10 3/uL Neutrophil % 59.7 % Lymphocyte % 28.9 % Monocyte % 10.1 % Eosinophil % 0.3 % Basophils % 0.0 % NRBC % 0 % CBC Slide Review Slide Review Perform SLIDE REVIEW CONSISTENT WITH AUTOMATION. Problem List: 1. 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 She has associated pancytopenia with predominant anemia. 2. She was found to have evidence of B12 deficiency, but with no response to B12 replacement. 3. She has symptoms of peripheral neuropathy. 4. Hypertension. 5. Hyperlipidemia. 6. GERD. 7. She has CT evidence of COPD, though with fairly minimal smoking history. 8. Degenerative arthritis with previous total knee arthroplasty bilaterally. Problems Addressed with this Encounter and Plan: 1. Patient with pancytopenia with predominant macrocytic anemia. Her laboratory studies from 11/16/2020 included a B12 level in the low normal range and a significantly elevated methylmalonic acid level, consistent with B12 deficiency. She also had a significantly elevated sed rate and 99 mm/h. With those findings, she was recommended to begin B12 injections. She then presented with worsening symptoms which include severe weakness/fatigue, daily fever and night sweating, and increased joint pain. She continued her B12 replacement, but at that point I also opted to have her start steroid therapy. She then underwent bone marrow aspiration/biopsy on 12/15/2020. The marrow was hypercellular with blasts estimated at 8%. The FISH panel for MDS was positive for chromosome 5q deletion. Based on her current CBC and estimated 8% blasts in the bone marrow, her IPSS-R calculated to 4.5, intermediate risk. With those findings, she was recommended to begin a trial of therapy with lenalidomide 10 mg daily for 28 days each month. Aspirin prophylaxis was omitted due to thrombocytopenia, baseline platelet count 33,000. Treatment started on 01/07/2021. After 4 days her repeat CBC showed a decrease in the platelet count to 20,000, and at that point the lenalidomide was decreased to every other day. After 1 week there was further decrease in the platelet count to 14,000, at that point the lenalidomide was stopped. She had no bleeding complications. She did require PRBC transfusion on 01/21/2021 with her hemoglobin decreased to 6.8 g. As of her follow-up visit on 02/02/2021 her blood counts were showing some recovery, and she continued with cycle 2 of lenalidomide with the dosage reduced to 5 mg daily. As of 02/11/2021 treatment was put on hold again with her platelet count decreased to 19,000. On 03/15/2021 she restarted treatment with lenalidomide with the dosage reduced to 2.5 mg daily for 14 days. As of 03/29/2021 her treatment was put on hold due to neutropenia and thrombocytopenia. Her repeat bone marrow aspiration/biopsy on 04/12/2021 showed her cellularity normal at 10 to 30%. Morphologic assessment was limited due to the aspirate being aspicular. Blasts were estimated 1 to 2%. The FISH panel for MDS was still positive for chromosome 5q deletion. Thus far her treatment has remained on hold, and at this point she does appear to be showing some recovery. Given the bone marrow findings, her treatment has remained hold. At this point she does appear to be showing some recovery of her neutrophil count, but her platelet count remains low in the range of 30,000. At least for now I will continue to monitor blood counts every 2 weeks. She will be transfused again as needed. If she does show further recovery, I will restart the lenalidomide at a lower dosage (2.5 mg every other day). In the meantime, she will continue prednisone, I will have her reduce the dosage to 5 mg daily. 2. She has evidence of transfusion associated iron overload. She will now begin begin iron chelation therapy with deferasirox, initially at 360 mg daily. Signed By: Alejandro Doarntes M.D. <<Signature on File>>
[2021-06-08 14:04] LABS: Eosinophils % 0.8 %; Hematocrit 25.9 % (37.0-47.0); Hemoglobin 8.1 g/dL (11.5-15.3); Lymphocytes # 0.9 10^3/uL (0.8-4.8); Lymphocytes % 33.8 %; Mean Corpuscular HGB Conc 31.3 g/dL (30.0-36.0); Mean Corpuscular Hemoglobin 29.1 pg (28.0-34.0); Mean Corpuscular Volume 93.2 fl (81-99); Mean Platelet Volume 13.3 fL (7.4-10.4); Monocytes # 0.4 10^3/uL (0.2-0.9); Monocytes % 15.8 %; Neutrophils # 1.28 10^3/uL (1.8-7.7); Neutrophils % 49.2 %; Nucleated Red Blood Cells % 0 %; Red Blood Count 2.78 10^6/uL (4.1-5.3); Red Cell Distribution Width 13.5 % (12.1-15.1); White Blood Count 2.6 10^3/uL (4.0-10.0)
[2021-06-08 14:21] LABS: Platelet Count 28 10^3/cmm (130-400)
[2021-06-08 14:22] LABS: Slide Review Slide Review Perform
[2021-06-10] VITALS (11 sets, daily range): BP systolic 98–157; BP diastolic 38–72; PULSE 61–80; RESP 18–118; TEMP 36.2–37; O2SAT 90–98
[2021-06-10] MEDS: diphenhydrAMINE 25 mg Capsule PO (08:58)
[2021-06-10] MEDS: acetaminophen 325 mg Tablet 650 MG PO (08:58)
[2021-06-10] MEDS: sodium chloride 0.9% 250 ML 999 ML IV ×2 (09:25→13:40)
[2021-06-10] MEDS: FUROsemide 10 mg/mL SDV 2mL 20 MG IV (11:51)
== END 2021-06-24 23:59 | disposition home or self-care (01) ==
LOC: ONCMED 06:49
PROVIDERS: PCP Family Medicine; Visit Provider Internal Medicine Medical Oncology
DX: D46.C Myelodysplastic syndrome with isolated del(5q) chromosomal abnormality (principal); D61.818 Other pancytopenia; D51.9 Vitamin B12 deficiency anemia, unspecified; G62.9 Polyneuropathy, unspecified; I10 Essential (primary) hypertension; E78.5 Hyperlipidemia, unspecified; K21.9 Gastro-esophageal reflux disease without esophagitis; J44.9 Chronic obstructive pulmonary disease, unspecified; F17.210 Nicotine dependence, cigarettes, uncomplicated; M17.12 Unilateral primary osteoarthritis, left knee; Z96.652 Presence of left artificial knee joint; Z79.899 Other long term (current) drug therapy
CPT/HCPCS: 36415; 36430; 80500; 85025; 86850; 86900; 86920; 96361; 96374; 99214; J1940; J7040; J7050; P9040